=== PATIENT | female | born 1950 | race Caucasian/White ===

== ENCOUNTER 2019-03-12 16:46 | Inpatient (IN) | payer MEDICARE, OTHER, SELFPAY ==
[2019-03-12 17:06] VITALS: BP 99/57; PULSE 85; RESP 10; TEMP 36.9; O2SAT 99
[2019-03-12 18:21] LABS: Abs Immature Grans 0.01 k/cumm (0.0-0.09); Absolute Basophil Count 0.02 k/cumm (0.0-0.2); Absolute Eosinophil Count 0.03 k/cumm (0.0-0.7); Absolute Lymphocyte Count 1.25 k/cumm (1.2-3.4); Absolute Monocyte Count 0.49 k/cumm (0.11-0.7); Absolute Neutrophil Count 3.14 k/cumm (1.2-6.7); Basophils % 0.4; Eosinophils % 0.6; HCT 39.1 % (36.0-46.0); HGB 13.1 g/dL (12.0-15.5); Immature Grans % 0.2; Lymphocytes % 25.3; Mean Corp. HGB Concentration 33.5 g/dL (32.0-36.0); Mean Corpuscular Hemoglobin 31.3 pg (27.0-33.0); Mean Corpuscular Volume 93.5 fL (80-95); Mean Platelet Volume 11.6 fL (8.0-11.0); Monocytes % 9.9; Neutrophils % 63.6; Platelet Count 153 x1000/uL (130-400); RBC 4.18 m/cumm (4.00-5.20); RBC Distribution Width 12.8 % (11.7-14.6); White Blood Cell Count 4.94 k/cumm (4.4-10.8)
[2019-03-12] MEDS: Normal Saline Flush 10 ML SYR IVP (18:21)
[2019-03-12] MEDS: Normal Saline 1,000 ML 125 ML IV (18:22)
[2019-03-12 18:43] LABS: ALT 29 U/L (12-78); AST 14 U/L (15-37); Alkaline Phosphatase 76 U/L (46-116); Anion Gap 5.8 mmol/L (3-11); BUN 31 mg/dL (7-18); Bilirubin, Total 0.5 mg/dL (0.2-1.0); CO2 30.2 mmol/L (21.0-32.0); CREATININE 0.83 mg/dL (0.55-1.02); Calcium 9.6 mg/dL (8.5-10.1); Chloride 103 mmol/L (98-107); Glucose 98 mg/dL (70-100); Magnesium 2.3 mg/dL (1.8-2.4); Potassium 4.2 mmol/L (3.5-5.1); Sodium 139 mmol/L (136-145); Total Protein 7.2 g/dL (6.4-8.2)
--- NOTE | 2019-03-12 19:01 | ED.GENADUL_ITS ---
Discharge Plan Discharge Details Chief Complaint: GenMedical Clinical Impression: Adult failure to thrive, Generalized weakness Primary Care Provider: Vy Dorado ED Provider: Edy Christie Home Meds and New Rx's Prescriptions: No Action calcium carb and citrate-vitD3 1 EACH tablet extended release 2 ea PO DAILY RF: 0 sertraline 50 MG tablet 50 mg PO DAILY Qty: 90 RF: 3 bupropion HCl 300 MG tablet extended release 24 hr 300 mg PO DAILY Qty: 90 RF: 3 Medical Decision Making 68-year-old female here with generalized weakness progressive over the past 2 years and worse over the past couple weeks. Unable to care for herself at home. Patient has been diagnosed and being treated for chronic Lyme disease by a Lyme disease specialist. She is being treated with Plaquenil and nystatin for this. Patient has not been referred to neurology for neurologic evaluation. I am concerned that she may have a neurodegenerative condition, possibly Parkinson's disease. Patient would benefit from an evaluation by neurology. Patient is failing to thrive with significant weight loss. She is unable to ambulate or care for herself at home. Patient will need to be admitted and likely transition to rehab facility. IVF initiated. Screening ECG was reviewed and interpreted by me: Sinus rhythm 80 bpm, subtle ME depression noted inferior. Labs reviewed and nondiagnostic. 19:18 -- I spoke with Dr. Jensen who will admit. Care transitioned to Dr. Jensen who will admit - he requests bridging orders be placed to the floor. HPI General Mode of arrival: ambulatory . Date/Time Provider Initiated Documentation: 03/12/19 17:54 . Limitations to Documentation: no limitations . Information obtained by: patient . HPI Narrative: 68-year-old female with history of depression, Parkinson-like syndrome, being treated for chronic Lyme disease with nystatin and Plaquenil, here with failure to thrive. Patient was brought here by EMS because she is unable to ambulate. Friends are here with her. Patient and friends note that she has had increased generalized weakness over the past 1 year. Symptoms are much worse over the past 2 weeks. Symptoms are progressive. No modifiers. Friends have been providing food and helping her around the house. She now notes that she is unable to ambulate. She is been crawling around the house at times. Patient denies chest pain or abdominal pain. She has no headache. She does note chronic tremor. She has no focal weakness or numbness. Patient has had unintentional weight loss over the past months. Also of note, the patient has had recent hallucinations. Specifically today she thought she saw Katharina domínguez in her house. She understands that this is not possible and that it was a hallucination. She also been hearing voices at times that she believes are not actually there. Related Data Home Medications Medication Instructions Recorded Confirmed calcium carb and citrate-vitD3 2 ea PO DAILY 11/18/16 12/31/16 bupropion HCl 300 mg PO DAILY #90 tab-cap 02/03/18 sertraline 50 mg PO DAILY #90 tab-cap 02/03/18 Previous Rx's Medication Instructions Recorded bupropion HCl 300 mg PO DAILY #90 tab-cap 02/03/18 sertraline 50 mg PO DAILY #90 tab-cap 02/03/18 Allergies Allergy/AdvReac Type Severity Reaction Status Date / Time Penicillins Allergy Unknown Unverified 02/03/18 14:34 General Stated Complaint: GenMedical LUIS: 4 Review of Systems Constitutional Reports as per HPI and Denies fever(s) Cardiovascular Denies chest pain and Denies dyspnea Respiratory Denies dyspnea PFSH Medical History Depression Gallstones Osteopenia Surgical History Cervical Conization/LEEP Colonoscopy - IV Sedation EGD - MAC (12/31/16) L wrist tendon repair Tonsillectomy and adenoidectomy wrist ORIF left Family History Mother Dementia Father No problems noted. Social History Smoking/Tobacco Use Status: Former Tobacco Use Drug use: Never Do you feel safe at home: Yes Exam Const General: cooperative and no acute distress HENMT Head: normocephalic and atraumatic Eyes Conjunctivae: normal conjunctivae Sclera: normal sclerae EOM: EOM intact bilaterally Neck Neck: trachea midline and supple Resp Auscultation: clear to auscultation bilaterally, no rales, no rhonchi and no wheezes Cardio Jugular venous pressure: no JVD Rate: regular rate and not tachycardic Rhythm: regular rhythm GI Palpation: soft, not firm, no guarding, no masses, not rigid and nontender Skin General skin exam: no rashes or lesions noted Neuro General: alert, awake, oriented x3 and moves all extremities Cognition: normal cognition Speech: speech normal Motor: other (Strength is 3 to 4/5 throughout) Sensory Exam: no sensory deficits noted Other: Flat facies, baseline tremor bilateral upper extremities Extrem General: no edema Psych Affect: blunted Thought Process: normal Thought Content: normal Insight: insight good Judgment: judgment good Course Vital Signs Temperature 36.9 C 03/12/19 17:06 Pulse 85 03/12/19 17:06 Respiratory Rate 10 L 03/12/19 17:06 Blood Pressure 99/57 L 03/12/19 17:06 Pulse Oximetry 99 03/12/19 17:06 Temperature 36.9 C 03/12/19 17:06 Temperature Source Temporal Artery Scan 03/12/19 17:06 Pulse 85 03/12/19 17:06 Respiratory Rate 10 L 03/12/19 17:06 Blood Pressure 99/57 L 03/12/19 17:06 Blood Pressure Position Sitting 03/12/19 17:06 Pulse Oximetry 99 03/12/19 17:06 Oxygen Delivery Method Room Air 03/12/19 17:06 Oxygen Flow Rate 0 03/12/19 17:06 Pain Level 0 03/12/19 17:06 Lab/Test Results Lab/Test Results: Laboratory Tests Range/Units 03/12/19 18:11 WBC (4.4-10.8) k/cumm 4.94 RBC (4.00-5.20) m/cumm 4.18 Hgb (12.0-15.5) g/dL 13.1 Hct (36.0-46.0) % 39.1 MCV (80-95) fL 93.5 MCH (27.0-33.0) pg 31.3 MCHC (32.0-36.0) g/dL 33.5 RDW (11.7-14.6) % 12.8 Plt Count (130-400) x1000/uL 153 MPV (8.0-11.0) fL 11.6 H Immature Gran % 0.2 Neutrophils % 63.6 Lymphocytes % 25.3 Monocytes % 9.9 Eosinophils % 0.6 Basophils % 0.4 Absolute Neutrophils (1.2-6.7) k/cumm 3.14 Absolute Lymphocytes (1.2-3.4) k/cumm 1.25 Absolute Monocytes (0.11-0.7) k/cumm 0.49 Absolute Eosinophils (0.0-0.7) k/cumm 0.03 Absolute Basophils (0.0-0.2) k/cumm 0.02
[2019-03-12 19:10] LABS: Troponin I < 0.05 ng/mL (0.00-0.06)
[2019-03-12 19:53] VITALS: BP 92/48; RESP 18; O2SAT 98
[2019-03-12 20:15] VITALS: BP 101/61; PULSE 75; RESP 16; TEMP 37; O2SAT 98
--- NOTE | 2019-03-12 21:53 | W.PM.HP.N ---
Date of service: 03/12/19 Time of Service: 21:54 Assessment and Plan (1) Parkinsonism: Current visit: Yes Status: Suspected will check other metabolic causes, i.e. thyroid, b12; will consult w/ neurology; consider occult malignancy in light of her weight loss; consider MRI of brain; I am skeptical of her diagnosis of Lyme's disease and would like to see her workup for Lyme's. (2) Decreased activities of daily living (ADL): Current visit: Yes Status: Acute patient apparently can no longer care for herself at home. I will consult P.T. and O.T. as well as nutritional consult to look at her weight loss and nutritional needs. (3) Depression: Current visit: No Status: None consider adjustment of her antidepressants. Qualifiers: Depression Type: major depressive disorder Major depression recurrence: recurrent Active/Remission status: currently active Major depression episode severity: moderate Qualified Code(s): F33.1 - Major depressive disorder, recurrent, moderate History of Present Illness Chief Complaint: progressive weakness, unable to care for self Narrative: 68-year-old female who lives alone has had a progressive decline in her ability to care for herself over the last several months. Patient had been diagnosed with chronic Lyme disease by Dr. Lex Banda in [facility]. Patient states that her symptoms started with parkinsonism type symptoms including shuffling gait trouble with her balance, weakness in her legs, and tremors. She states she was diagnosed in July 2018 after some blood tests and a physical exam and was started on clarithromycin and Plaquenil. She states since then she is gotten progressively worse and her symptoms with generalized weakness and trouble ambulating. She particularly has trouble with shuffling gait and has trouble backing up without losing her balance or when she tries to turn in circles she loses her balance. She is also had progressive weight loss. She formerly weighed 170 pounds last year and is now down to 100 pounds. Within the last month she is lost about 30 pounds. This in spite of the fact she claims to have a good appetite. She is no longer able to cook for herself or to do her own bathing and requires market amount of assistance from friends and neighbors. During her work-up of her symptoms she never sought the advice of a neurologist nor was her Lyme disease confirmed by any infectious disease specialist. She states she has not seen her primary care provider Dr. Vy Dorado for about a year now. Work-up in the emergency room included a CBC that was within normal limits. CMP was also essentially normal other than a mild elevation in her BUN of 31 with a normal creatinine of 0.83. Troponin and LFTs were normal. Her total protein was normal at 7.2 and albumin was normal at 4.0. No imaging studies were performed. EKG showed normal sinus rhythm at a rate of 80 bpm with nonspecific T wave abnormality in aVL and V2. Patient is admitted for further evaluation of her progressive weakness and tremors and inability to care for herself. Review of Systems Constitutional Reports fatigue, Reports lethargy, Reports weakness and Reports weight loss Eyes Reports system reviewed and no additional complaints, except [facility] E[facility] Reports system reviewed and no additional complaints, except as [facility] Cardiovascular Reports system reviewed and no additional complaints, except as [facility] Respiratory Reports system reviewed and no additional complaints, except as [facility] Gastrointestinal Reports system reviewed and no additional complaints, except as [facility] Genitourinary Reports urinary frequency and Reports urinary incontinence Musculoskeletal Reports muscle weakness and Reports stiffness (feet and legs feel stiff and immoveable) Integumentary/Breasts Reports system reviewed and no additional complaints, except as [facility] Neurologic Reports lack of coordination, Reports tremor(s) and Reports weakness Endocrine Reports fatigue Hematologic/Lymphatic Reports system reviewed and no additional complaints, except as [facility] PFSH Medical History Depression Gallstones Osteopenia Surgical History Cervical Conization/LEEP Colonoscopy - IV Sedation EGD - MAC (12/31/16) L wrist tendon repair Tonsillectomy and adenoidectomy wrist ORIF left Family History Mother Dementia Father No problems noted. Social History Smoking/Tobacco Use Status: Former Tobacco Use Drug use: Never Do you feel safe at home: Yes Meds Home Medications Medication Instructions Recorded Confirmed Type bupropion HCl 100 mg PO BID 03/12/19 03/12/19 History cholecalciferol (vitamin D3) 1,000 unit PO DAILY 03/12/19 03/12/19 History [Vitamin D3] clarithromycin 250 mg PO TID 03/12/19 03/12/19 History hydroxychloroquine 100 mg PO TID 03/12/19 03/12/19 History nystatin 500,000 unit PO QID 03/12/19 03/12/19 History vitamin E 400 unit PO DAILY 03/12/19 03/12/19 History Allergies Allergy/AdvReac Type Severity Reaction Status Date / Time Penicillins Allergy Unknown Unverified 02/03/18 14:34 Exam Const General: cooperative, no acute distress and other (flat affect, masked facies) Nutritional Appearance: cachectic and thin Orientation: alert, awake and oriented x3 HENMT Head: normal to inspection, no palpable skull fracture, normocephalic and atraumatic Ears: hearing grossly normal bilaterally, external ears normal and EAC abnormal excessive cerumen General nose exam: external nose normal, nares normal, no nasal polyps and nasal mucous membranes and turbinates normal Face and sinus: normal facial exam Mouth: oral mucosae normal, lip normal, tongue normal, oropharynx normal and moist mucous membranes Eyes General: appearance normal, both eyes and all related structures Visual Prieto: normal visual prieto by confrontation Alignment and Position: alignment normal Periorbital: periorbital findings normal Eyelids: eyelids normal Conjunctivae: conjunctivae normal Sclera: sclerae normal Cornea: corneas normal Pupils: PERRL, normal by confrontation and accommodation normal EOM: EOM intact bilaterally Direct ophthalmoscopy: normal light reflex Neck Neck: normal visual inspection, full ROM, no lymphadenopathy, no meningeal signs, trachea midline, supple and no JVD Thyroid: thyroid normal Carotids: normal carotid upstroke Resp Effort & Inspection: normal respiratory effort and able to speak in complete sentences Auscultation: clear to auscultation bilaterally Cardio Jugular venous pressure: no JVD Palpation: normal PMI Rate: regular rate Rhythm: regular rhythm Heart Sounds: S1 normal, S2 normal and normal, physiologic split S2 Pulses: normal peripheral pulses GI Inspection: normal to inspection Palpation: soft and no hepatosplenomegaly Percussion: normal to percussion Auscultation: normal bowel sounds General: No CVA tenderness Skin General skin exam: no rashes or lesions noted Neuro General: alert, awake, oriented x3, moves all extremities and no meningeal signs Cranial Nerves: PERRL, accommodation normal, EOM intact bilaterally, no nystagmus, facial strength normal, tongue midline, gag reflex normal, hearing normal and able to elevate shoulders bilaterally Cognition: normal cognition Speech: speech normal Motor: muscle tone normal throughout, tremor (bilateral hand tremors that are worse w/ activity), no pronator drift noted and strength abnormal (normal strenght in both upper extremities; decr in both legs w/ hips & Knee) Sensory Exam: no sensory deficits noted DTR's: Rt Patellar: 2+, Lt Patellar: 2+, Rt Ankle: 2+ and Lt Ankle: 2+ Plantar Reflexes: Equivocal: bilateral Coordination: [id number] test abnormal (no past pointing but very slow and deliberate w/ tremors) Extrem General: normal to inspection, full ROM, normal capillary refill, no joint enlargement and no clubbing, cyanosis or edema Psych Appearance: well kempt Mental Status: mental status grossly normal Speech and Movement: speech clear and slowed movement Mood: congruent mood Affect: blunted Attitude: cooperative Thought Process: normal Thought Content: normal Insight: fair Results Labs : 03/12/19 18:11 03/12/19 18:11 Laboratory Results - last 24 hr 03/12/19 03/12/19 18:11 18:11 WBC 4.94 RBC 4.18 Hgb 13.1 Hct 39.1 MCV 93.5 MCH 31.3 MCHC 33.5 RDW 12.8 Plt Count 153 MPV 11.6 H Immature Gran % 0.2 Neutrophils % 63.6 Lymphocytes % 25.3 Monocytes % 9.9 Eosinophils % 0.6 Basophils % 0.4 Absolute Neutrophils 3.14 Absolute Lymphocytes 1.25 Absolute Monocytes 0.49 Absolute Eosinophils 0.03 Absolute Basophils 0.02 Sodium 139 Potassium 4.2 Chloride 103 Carbon Dioxide 30.2 Anion Gap 5.8 BUN 31 H Creatinine 0.83 Estimated GFR/1.73 m2 >= 60.00 Glucose 98 Calcium 9.6 Magnesium 2.3 Total Bilirubin 0.5 AST 14 L ALT 29 Alkaline Phosphatase 76 Troponin I < 0.05 Total Protein 7.2 Albumin 4.0 Last Vital Signs Temp 36.9 C 03/12/19 17:06 Pulse 85 03/12/19 17:06 Resp 18 03/12/19 19:53 BP 92/48 L 03/12/19 19:53 Pulse Ox 98 03/12/19 19:53
[2019-03-13] MEDS: Melatonin 3 MG TAB 9 MG PO ×2 (02:03→21:43)
[2019-03-13] MEDS: Normal Saline 1,000 ML 125 ML IV ×2 (02:04→12:01)
[2019-03-13 03:20] VITALS: BP 128/74; PULSE 72; RESP 16; TEMP 36.4; O2SAT 98
[2019-03-13 07:35] VITALS: BP 129/73; PULSE 69; RESP 18; TEMP 36.5; O2SAT 100
[2019-03-13 08:42] LABS: TSH (W/Ref FT4) 1.62 uIU/mL (0.358-3.74); Vitamin B12 452 pg/mL (193-986)
[2019-03-13] MEDS: Breeza Beverage 473 ML BTL PO ×2 (09:20→09:21)
[2019-03-13] MEDS: Omnipaque 350 MG/ML 50 ML BTL IJ (09:22)
[2019-03-13 09:54] LABS: Folate > 20.0 ng/mL (8.6-20.0)
--- NOTE | 2019-03-13 09:54 | DI.CT_ITS ---
SYMPTOM/DIAGNOSIS: SIGNIFICANT WEIGHT LOSS CT CHEST, ABDOMEN AND PELVIS: CT scan of the chest, abdomen and pelvis was performed following the uneventful administration of intravenous and oral contrast material. Comparison examination is 10/03/16 CT ABDOMEN AND PELVIS: The liver is normal in size. No suspicious hepatic mass is seen. The portal, superior mesenteric and splenic veins are patent. There are stones seen within the gallbladder. The largest measures 1.7 cm. There is hyperemia of the gallbladder wall with mild thickening. Pericholecystic fluid is present. There is no biliary ductal dilatation. The pancreas and peripancreatic soft tissues are unremarkable. The spleen is unremarkable. The adrenal glands are unremarkable. The kidneys show normal and symmetric enhancement. No evidence of a solid renal mass is present. There is a nonobstructing 0.6 cm stone in the mid pole of the right kidney. The urinary bladder is unremarkable. The reproductive organs are unremarkable as visualized. There is atherosclerosis of the abdominal aorta but no aneurysmal dilatation present. No significant abdominal or pelvic adenopathy, ascities or pneumoperitoneum is seen. There is stool seen throughout the colon suggesting constipation. No evidence of bowel obstruction or bowel inflammatory infectious process is appreciated. No findings are present in the right lower quadrant to suggest an acute appendicitis. There are degenerative changes seen in the spine. No aggressive osseous lesions are appreciated. IMPRESSION: 1. Cholelithiasis with pericholecystic fluid , gallbladder wall thickening. The findings raise the question of acute cholecystitis. Sonographic correlation may be considered. 2. No evidence of an abdominal mass or metastatic disease CT CHEST: The visualized thyroid gland is unremarkable. The thoracic aorta is of normal caliber. Heart size is within normal limits. No significant pericardial effusion is seen. The central pulmonary arteries are unremarkable. No effusion or pneumothorax is identified. No significant thoracic adenopathy is seen. No infiltrates are present in the lungs. The tracheobronchial tree is unremarkable. Degenerative changes are seen in the spine. IMPRESSION: No acute pulmonary process.
--- NOTE | 2019-03-13 10:20 | DI.VRAD_ITS ---
EXAM: CT Chest With Contrast EXAM DATE/TIME: 03/13/2019 7:42 AM CLINICAL HISTORY: 68 years old, female; Other: Wt loss, failure to thrive; Patient HX: Wt loss, . R/O occult malignancy TECHNIQUE: Imaging protocol: Axial computed tomography images of the chest with intravenous contrast. Coronal and sagittal reformatted images were created and reviewed. Radiation optimization: All CT scans at this facility use at least one of these dose optimization techniques: automated exposure control; mA and/or kV adjustment per patient size (includes targeted exams where dose is matched to clinical indication); or iterative reconstruction. Contrast material: OMNI 350; Contrast volume: 80 ml; Contrast route: IV; COMPARISON: CR CHEST 2 VIEWS PA,LAT 10/03/2016 7:56 AM FINDINGS: Lungs: Unremarkable. No consolidation. No masses. Pleural space: Unremarkable. No pneumothorax. No pleural effusion. Heart: Unremarkable. No cardiomegaly. No pericardial effusion. Aorta: Unremarkable. No aortic aneurysm. Lymph nodes: Unremarkable. No enlarged lymph nodes. Bones/joints: Unremarkable. No acute fracture. Soft tissues: Unremarkable. IMPRESSION: No acute findings. EXAM: CT Abdomen and Pelvis With Contrast EXAM DATE/TIME: 03/13/2019 7:42 AM CLINICAL HISTORY: 68 years old, female; Other: Wt loss, failure to thrive; Patient HX: Wt loss, . R/O occult malignancy TECHNIQUE: Imaging protocol: Axial computed tomography images of the abdomen and pelvis with intravenous contrast. Coronal and sagittal reformatted images were created and reviewed. Radiation optimization: All CT scans at this facility use at least one of these dose optimization techniques: automated exposure control; mA and/or kV adjustment per patient size (includes targeted exams where dose is matched to clinical indication); or iterative reconstruction. Contrast material: OMNI 350; Contrast volume: 80 ml; Contrast route: IV; COMPARISON: CR CHEST 2 VIEWS PA,LAT 10/03/2016 7:56 AM FINDINGS: Liver: Normal. No mass. Gallbladder and bile ducts: Gallstone in the gallbladder. Pericholecystic fluid. Gallbladder wall thickness. Findings may reflect acute cholecystitis. Pancreas: Normal. No ductal dilation. Spleen: Normal. No splenomegaly. Adrenals: Normal. No mass. Kidneys and ureters: Nonobstructing right renal calculus Stomach and bowel: Constipation throughout the colon Appendix: No evidence of appendicitis. Intraperitoneal space: Normal. No free air. No significant fluid collection. Vasculature: Normal. No abdominal aortic aneurysm. Lymph nodes: Normal. No enlarged lymph nodes. Bladder: Unremarkable as visualized. Reproductive: Unremarkable as visualized. Bones/joints: No acute fracture. No dislocation. Soft tissues: Unremarkable. IMPRESSION: Gallstone in the gallbladder. Pericholecystic fluid. Gallbladder wall thickness. Findings may reflect acute cholecystitis. THIS REPORT CONTAINS FINDINGS THAT MAY BE CRITICAL TO PATIENT CARE. The findings were verbally communicated via telephone conference with Shanna French NP at 10:19 AM EDT on 03/13/2019. The findings were acknowledged and understood. Dictated and Authenticated by: Rodrigo Harper MD. Ordering:LUKE Romero MD
[2019-03-13] MEDS: Omnipaque 350 MG/ML 100 ML BTL IJ (10:36)
[2019-03-13] MEDS: Hydroxychloroquine 200 MG TAB 100 MG PO ×3 (10:53→20:16)
[2019-03-13] MEDS: Clarithromycin 500 MG TAB 250 MG PO ×3 (10:53→20:15)
[2019-03-13] MEDS: Cholecalciferol (Vitamin D3) 1,000 UNIT TAB 1000 UNITS PO (10:54)
[2019-03-13] MEDS: Vitamin E 400 UNITS CAP PO (10:54)
[2019-03-13] MEDS: buPROPion 100 MG TAB PO ×2 (10:54→20:16)
[2019-03-13] MEDS: Nystatin 500000 UNITS/5 ML SUSP 5ML CUP PO ×3 (10:54→20:17)
--- NOTE | 2019-03-13 11:21 | IN_ITS ---
Date of service: 03/13/19 Time of Service: 10:00 PT Notes Inpatient Physical Therapy Evaluation Date: 03/13/19 Referring Doctor: Isra Jensen MD PT Orders: PT CONSULT: Evaluate and Treat for decreased ADL performance Precautions: Fall, standard Patient Profile/Admitting Diagnosis: Orders received for this 68 year old female who has had an unfortunate last year. She was about 170 pounds but yet very active and caring for herself with out any compromise. Over the course of this year she has lost over 70pounds and has gotten progressively weaker. She is to the point now where she has been unable to care for herself including making food for the last few weeks. She states she is now unstable with even basic activities such as getting out of bed, dressing, and bathing. 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 Is very active in the [facility] historically Equipment Owned/DME: Nothing Subjective: Patient states she can not recall anything that could have caused this sudden decline in her function. Objective: Patient is sitting up in chair, pleasant but requests to use the commode Mental Status: Alert well oriented to person, place and time. Pain: 0/10 ROM: Right Upper Extremity: WFL Left Upper Extremity: WFL Right Lower Extremity: WFL Left Lower Extremity: WFL Strength: Right Upper Extremity: Globally 4+/5 Left Upper Extremity: Globally 4+/5 Right Lower Extremity: Hip flexion 4/5, quads 4+/5, HS 4/5, DF 4/5, PF 4/5 Left Lower Extremity: Hip flexion 4/5, quads 4+/5, HS 4/5, DF 4/5, PF 4/5 Stand [facility] with 2WW Sit-stand: min A with 2WW Stand-sit: min A with 2WW Gait: Patient was able to demonstrate up to 10 feet for ambulation with Min A and 2WW Balance: Static Sitting: Good Dynamic Sitting: Good Static Standing: Fair Dynamic Standing: Poor Special Tests: Mobility Limitations Standardized Measure [facility] AM-PAC 6 clicks Basic Mobility Inpatient Short Form: Raw Score: 15 Standardized Score: 39.45 CMS Score: 57.7% Informed Consent/Education: Patient instructed in purpose of PT consult and plan of care. ASSESSMENT: Patient is a 68 year old female with hx of good physical health Admitted with progressive weakness and loss of ADLs Patient presents with the following impairment level findings: strength deficits globally, assistance of min needed for ambulation and transfers, ambulation intolerance Pt will benefit from skilled therapy intervention in order to remedy their functional limitations and restore patient to a more appropriate and stable functional level. Impairments are contributing to the following functional limitations: [facility] s core 57.7% Patient is assessed as a mod A [id number] based on the following: History: see above Examination: see above Presentation: evolving Decision Making: moderate based on [facility] of 57.7% Goals: Goals X1 week 1. Supine-Sit CGA 2. Sit-Supine CGA 3. Sit-Stand CGA 4. Stand-Sit CGA 5. Bed-Chair CGA 6. Gait up to 200 feet with least restrictive assistive device and CGA 7: Independent in Home program Plan of Care/Treatment Plan: 1-2x/day, 7 days/week x 1 week. Plan of care has been reviewed with the [employer] providing the service under Physical Therapy direction. Initiate Physical Therapy intervention for strengthening, bed mobility, transfers, gait, stairs, balance training, use of assistive device. DISCHARGE RECOMMENDATIONS: Unless significant improvement beyond current baseline patient may require placement. She has previously lived alone but this current state is not condusive for independent living without significant direct care supervisor support. TREATMENT CODE/TIME: Moderate complexity initial evaluation [id number] 10:00am 25 nadeen [facility]
[2019-03-13 11:40] LABS: Anion Gap 8.7 mmol/L (3-11); BUN 19 mg/dL (7-18); CO2 24.3 mmol/L (21.0-32.0); CREATININE 0.63 mg/dL (0.55-1.02); Calcium 9.2 mg/dL (8.5-10.1); Chloride 106 mmol/L (98-107); Glucose 96 mg/dL (70-100); Potassium 4.3 mmol/L (3.5-5.1); Sodium 139 mmol/L (136-145)
--- NOTE | 2019-03-13 12:15 | DI.US_ITS ---
SYMPTOMS/DIAGNOSIS: GALLSTONES, 70-POUND WEIGHT LOSS, CHRONIC LYME DISEASE, FAILURE TO THRIVE, ? ACUTE CHOLECYSTITIS ABDOMINAL ULTRASOUND: Routine examination was performed. The liver measures 13.5 cm in length. No mass is seen sonographically. There are multiple stones seen within the gallbladder, the largest measures 4.7 x 2.6 x 2.7 cm and is immobile. There is gallbladder wall thickening up to 6 mm. There is mild pericholecystic fluid. The common duct is within normal limits in size. The visualized pancreas and spleen are unremarkable. The aorta and IVC are unremarkable. There is antegrade flow in the portal vein. The kidneys are unremarkable save for a 2 mm echogenic focus in the superior pole of the right kidney, which may represent a stone. There is mild dilatation of the collecting system, which may represent mild hydronephrosis. IMPRESSION: 1. Findings in the gallbladder including a 4.7 cm immobile stone. The findings are suggestive of acute cholecystitis. 2. Findings of possible right hydronephrosis.
[2019-03-13 12:45] VITALS: BP 92/58; PULSE 89; RESP 16; TEMP 37.2; O2SAT 97
--- NOTE | 2019-03-13 14:14 | W.PM.PROGNOT ---
Date of Service Date of service: 03/13/19 Time of Service: 14:40 Assessment and Plan (1) Acute cholecystitis: Start date: 03/13/19 Start time: 15:34 Current visit: Yes Status: Acute CT abd ordered and found to have Acute cholecystitis. Abd. U/s obtained revealing multiple gallstones some adherent to the wall, gallbladder wall thickened to 6 mm with mild pericholecystic fluid. Surgery consulted. NPO, currently she is afebrile without luekocytosis. She is hypotensive with 80/56 manual bp HR 96. 500 bolus NS ordered. Will update surgery if her pressure does not increase. (2) Parkinsonism: Start date: 03/13/19 Start time: 15:26 Current visit: Yes Status: Suspected Tsh with in normal range. Folate and B 12. Neurology consulted. (3) Decreased activities of daily living (ADL): Start date: 03/13/19 Start time: 15:38 Current visit: Yes Status: Acute patient apparently can no longer care for herself at home.consult P.T. and O.T. as well as nutritional consult to look at her weight loss and nutritional needs. (4) Depression: Start date: 03/13/19 Start time: 15:39 Current visit: No Status: None consider adjustment of her antidepressants. Qualifiers: Active/Remission status: currently active Depression Type: major depressive disorder Major depression episode severity: moderate Major depression recurrence: recurrent Qualified Code(s): F33.1 - Major depressive disorder, recurrent, moderate (5) Ambulatory dysfunction: Current visit: Yes Status: Acute Possibly in the setting of worsening parkinsons. Gait is becoming more shuffled, and she has become weak. (6) Malnutrition: Start date: 03/13/19 Start time: 15:40 Current visit: Yes Status: Acute weight loss of 70 pounds over the last year. Malnourished, with cachexia. (7) DVT prophylaxis: Start date: 03/13/19 Start time: 15:43 Current visit: Yes Status: Acute lovenox subcu. Subjective Patient reports: other Interval history since last seen: Not feeling any better. CT revealing acute choleycysititis. Abdominal U/S obtained revealing multiple gallstones, some adherent to the wall, gallbladder wall thickened to 6 mm with mild pericholecystic fluid. Surgery consulted. She does have pain with palpation. Denies diversion to food however she does endorse forgetting to eat but states healthy appetite. She did have nausea a couple weeks ago, that appears to have waxed and waned. There has been a 70 lb wt loss over last year with unknown amount over the last month. Ms. Saenz endorses hallucinations starting over the last week; seeing people, she will see them doing activities then she will look and they will be gone. She denies auditory hallucinations. She states over the last couple of weeks she has become increasingly weak and her walking has become worse. She can no longer stand and use the BR by herself. MRI for tomorrow, neurology has been consulted. She denies CP, SOB, n/v/d. Exam Narrative Exam Narrative: Const: pleasant soft spoken, looks Older than stated age femal sitting up in chair. Neck: No lymphedema Resp: Lungs clear to all mccann. Speaking complete sentences. Cardio: RRR, no murmur appreciated GI: pain with palpation to mid epigastric, Skin: No clubbing, edema or cyanosis Neuro: having hallucinations, Extrem: tremulous and weakness to bilateral LE. Objective Objective Clinical Data: Abnormal lab results 03/12/19 03/12/19 03/13/19 Range/Units 18:11 18:11 06:55 MPV 11.6 H (8.0-11.0) fL BUN 31 H (7-18) mg/dL AST 14 L (15-37) U/L Folate > 20.0 H (8.6-20.0) ng/mL 03/13/19 Range/Units 11:08 MPV (8.0-11.0) fL BUN 19 H D (7-18) mg/dL AST (15-37) U/L Folate (8.6-20.0) ng/mL Vital Signs Temperature 37.2 C 03/13/19 12:45 Temperature Source Tympanic 03/13/19 12:45 Pulse 89 03/13/19 12:45 Pulse Rhythm Regular 03/13/19 11:50 Respiratory Rate 16 03/13/19 12:45 Respiratory Effort 03/13/19 11:50 Respiratory Depth Normal 03/13/19 11:50 Respiratory Pattern Normal 03/13/19 11:50 Blood Pressure 92/58 L 03/13/19 12:45 Blood Pressure Position Sitting 03/12/19 17:06 Pulse Oximetry 97 03/13/19 12:45 Oxygen Delivery Method Room Air 03/13/19 12:45 Oxygen Flow Rate 0 03/13/19 12:45 Pain Level 0 03/12/19 17:06 Comment 03/13/19 12:45 Intake & Output 03/12/19 03/13/19 03/13/19 23:59 11:59 23:59 Output Total 400 / 400 Balance -400 / -400 Weight 52.163 kg Output: Urine 400 / 400 Other: Urine Color Yellow Urine Appearance Clear Urine Odor None Voiding Methods Diaper Bedside Commode Incontinent Diaper Incontinent Laboratory Results WBC 4.94 k/cumm (4.4-10.8) 03/12/19 18:11 RBC 4.18 m/cumm (4.00-5.20) 03/12/19 18:11 Hgb 13.1 g/dL (12.0-15.5) 03/12/19 18:11 Hct 39.1 % (36.0-46.0) 03/12/19 18:11 MCV 93.5 fL (80-95) 03/12/19 18:11 MCH 31.3 pg (27.0-33.0) 03/12/19 18:11 MCHC 33.5 g/dL (32.0-36.0) 03/12/19 18:11 RDW 12.8 % (11.7-14.6) 03/12/19 18:11 Plt Count 153 x1000/uL (130-400) 03/12/19 18:11 MPV 11.6 fL (8.0-11.0) H 03/12/19 18:11 Immature Gran % 0.2 03/12/19 18:11 63.6 03/12/19 18:11 25.3 03/12/19 18:11 9.9 03/12/19 18:11 0.6 03/12/19 18:11 0.4 03/12/19 18:11 Absolute Neutrophils 3.14 k/cumm (1.2-6.7) 03/12/19 18:11 Absolute Lymphocytes 1.25 k/cumm (1.2-3.4) 03/12/19 18:11 Absolute Monocytes 0.49 k/cumm (0.11-0.7) 03/12/19 18:11 Absolute Eosinophils 0.03 k/cumm (0.0-0.7) 03/12/19 18:11 Absolute Basophils 0.02 k/cumm (0.0-0.2) 03/12/19 18:11 Sodium 139 mmol/L (136-145) 03/13/19 11:08 Potassium 4.3 mmol/L (3.5-5.1) 03/13/19 11:08 Chloride 106 mmol/L (98-107) 03/13/19 11:08 Carbon Dioxide 24.3 mmol/L (21.0-32.0) 03/13/19 11:08 8.7 mmol/L (3-11) 03/13/19 11:08 BUN 19 mg/dL (7-18) H D 03/13/19 11:08 0.63 mg/dL (0.55-1.02) 03/13/19 11:08 >= 60.00 (mL/min/1.73m2) 03/13/19 11:08 Glucose 96 mg/dL (70-100) 03/13/19 11:08 Calcium 9.2 mg/dL (8.5-10.1) 03/13/19 11:08 Magnesium 2.3 mg/dL (1.8-2.4) 03/12/19 18:11 0.5 mg/dL (0.2-1.0) 03/12/19 18:11 AST 14 U/L (15-37) L 03/12/19 18:11 ALT 29 U/L (12-78) 03/12/19 18:11 76 U/L (46-116) 03/12/19 18:11 < 0.05 ng/mL (0.00-0.06) 03/12/19 18:11 7.2 g/dL (6.4-8.2) 03/12/19 18:11 4.0 g/dL (3.4-5.0) 03/12/19 18:11 Vitamin B12 452 pg/mL (193-986) 03/13/19 06:55 > 20.0 ng/mL (8.6-20.0) H 03/13/19 06:55 TSH 1.62 uIU/mL (0.358-3.74) 03/13/19 06:55
--- NOTE | 2019-03-13 14:28 | DI.VRAD_ITS ---
Addendum created by Rodrigo Harper MD on 03/13/2019 2:35:37 PM EDT THIS REPORT CONTAINS FINDINGS THAT MAY BE CRITICAL TO PATIENT CARE. The findings were verbally communicated via telephone conference with Shanna French at 2:35 PM EDT on 03/13/2019. The findings were acknowledged and understood. Initial report created on 03/13/2019 2:28:31 PM EDT EXAM: US Abdomen Complete EXAM DATE/TIME: 03/13/2019 2:00 PM CLINICAL HISTORY: 68 years old, female; Other: Gallstones, ? acute cholecystitis 70 lb wt loss TECHNIQUE: Imaging protocol: Real-time ultrasound of the abdomen with image documentation. COMPARISON: CT CHEST/ABD/PEL W 03/13/2019 9:42 AM FINDINGS: Liver: 13.5 cm No mass. Gallbladder: Multiple gallstones in the gallbladder. Largest gallstone 4.7 x 2.6 x 2.7 cm. This gallstone is nonmobile. Some of the gallstones adherent to the wall. Gallbladder wall thickened to 6 mm with mild pericholecystic fluid. Common bile duct: Common bile duct 1 mm Pancreas: Visualized pancreas is unremarkable. Right kidney: Possible 2 mm echogenic focus in the superior pole the right kidney. There may be mild hydronephrosis of the right kidney. Right kidney measures 11.1 cm Left kidney: Left kidney measures 9.6 cm. No mass. No hydronephrosis. Spleen: Normal. No splenomegaly. Aorta: Proximal aorta 2.4 cm Inferior vena cava: Normal. Portal venous: Antegrade flow in the portal vein IMPRESSION: Multiple gallstones in the gallbladder. Largest gallstone 4.7 x 2.6 x 2.7 cm. This gallstone is nonmobile. Some of the gallstones adherent to the wall. Gallbladder wall thickened to 6 mm with mild pericholecystic fluid. Findings consistent with acute cholecystitis There may be mild hydronephrosis of right kidney Dictated and Authenticated by: Rodrigo Harper MD. Ordering:NICKI Otero MD
--- NOTE | 2019-03-13 14:28 | PHARADMIT ---
Addendum entered by Ignacia Wooten 03/14/19 16:58: Pharmacy Note Subjective neuro consult ordered, Objective VS-okay Cl-108 Assessment carbidopa/levodopa 10/100 started TID lorazepam given prior to MRI Plan surgery once medically cleared Original Note: Admission Pharmacy Clinical Review failure TO thrive, Generalized weakness ( R/O Parkinsons Code Status Full Code Current Weight Wgt-52.163 kg Renally Cleared and Narrow Therapeutic Index Meds CrCl~ 48.3 mL/min Meds-OK QTc Value / Action Taken QTc-413 NA BP Control, Fever BP-92/58 Tmax- 37.2C Electrolytes reviewed Na-139 K+4.3 Mag-2.3 DVT Prophylaxis Lovenox Opiate Usage / Scheduled Bowel Regimen Ordered No Yes Plt/SCr for Heparin / Enoxaparin Plts-153 SCr-0.63 INR for Warfarin NA H/H stable, WBC/Bands H&H- 13.1/39.1 WBC- 4.94 Antibiotic appropriateness Biaxin, Home med Cultures and Sensitivities NONE Surgical ABX d/c within 24 hr NA DM control / Insulin Dosing BG- 96 Heart Failure (Check EF%) (WOLFGANG's, B-Block, Diuretics) None IV to PO Switch No Home Meds Reviewed Yes Home Meds Not Ordered ORSDERED Comments Neurology consult for Thursday to evaluate for possible Parkinsons disease
[2019-03-13] MEDS: Normal Saline 500 ML IV (15:44)
[2019-03-13 15:53] VITALS: BP 80/62; PULSE 95; RESP 17; TEMP 37; O2SAT 100
[2019-03-13 15:57] VITALS: BP 115/60; PULSE 80
[2019-03-13] MEDS: Normal Saline 1,000 ML 150 ML IV ×2 (17:30→23:48)
--- NOTE | 2019-03-13 18:09 | PDOC.CMIN ---
Care Management Initial Assess REASON FOR HOSPITALIZATION:: Failure to Thrive, Generalized weakness PAST MEDICAL HISTORY/PAST SURGICAL HISTORY:: Medical: Depression, Gallstones, Osteopenia. Surgical: Cervical Conization/LEEP, Colonoscopy - IV Sedation, EGD - MAC (12/31/16), L wrist tendon repair, Tonsillectomy and adenoidectomy. wrist ORIF left PREVIOUS FUNCTIONAL STATUS/SOCIAL/FAMILY SUPPORTS:: Has been living in a home with room mates and a group of friends who have been assisting her with her care needs. She has been getting weaker and has lost 20-30 pounds ove the past few months and friends are not able to meet her increased need for assistance. CURRENT FUNCTIONAL STATUS:: Sitting up in her recliner. Flat affect but does respond to questions. Good friend, Diamond Gerardo, is in visiting and shared information as well. Requires assistance for ambulation and transfers today. ADVANCE DIRECTIVES:: None on file Has patient been provided with information about the portal?: No Did the patient sign up for the portal?: No CODE STATUS:: Full Code INSURANCE COVERAGE / FINANCIAL ISSUES:: Medicare. Self Pay CURRENT HOME/COMMUNITY SERVICES/EQUIPMENT:: None at this time PRIMARY CARE PHYSICIAN:: Vy Dorado MD POTENTIAL DISCHARGE NEEDS:: Services, Short term SNF placement PATIENT/FAMILY EDUCATION NEEDS:: Self Management, Limitations, Resource options ANTICIPATED BARRIERS TO DISCHARGE:: Although she does not live alone, friends and roommates cannot meet her care needs at this time so she may not be able to returnhome right away. TRANSPORTATION:: Friends PLAN:: Leslie may need short term SNF placement for srengthening and improved mobility prior to returning to independent living at home.
[2019-03-13 20:39] LABS: Bilirubin Negative (Negative); Blood Trace-intact (Negative); Clarity Clear (Clear); Glucose Negative (Negative); Ketones Negative (Negative); Leukocyte Esterase Negative (Negative); Nitrite Negative (Negative); Specific Gravity 1.015 (1.005-1.025); Urobilinogen 0.2 EU/dL (Up TO 0.2); pH 5.5 (5-8)
[2019-03-13 20:46] LABS: Epithelial Cells Rare HPF (Negative); Other Cells Negative (Negative); RBC 0-2 (0-2); WBC Negative HPF (0-5)
[2019-03-13 20:47] LABS: Bacteria Rare HPF (Negative); C & S Indicated? No; Casts Negative LPF (Negative); Crystals Negative HPF (Negative); Mucus Negative (Negative)
[2019-03-14 00:07] VITALS: BP 110/64; PULSE 75; RESP 16; TEMP 36.1; O2SAT 99
[2019-03-14 03:53] VITALS: BP 112/70; PULSE 73; RESP 16; TEMP 35.7; O2SAT 94
[2019-03-14] MEDS: Normal Saline 1,000 ML 150 ML IV ×3 (06:06→23:10)
--- NOTE | 2019-03-14 07:09 | W.SURGCON ---
Date of service: 03/14/19 Time of Service: 07:09 Assessment and Plan (1) Parkinsonism: Current visit: Yes Status: Suspected 68 y/o female with progressively worsening neurologic symptoms. Undergoing workup and neurology consult pending. (2) Acute cholecystitis: Current visit: Yes Status: Acute 68 y/o female with known cholelithiasis. Findings on CT abd/pelvis and abdominal ultrasound on this admission consistent with acute cholecystitis. Cliinically, her abdomen is benign. She is asymptomatic at this time. LFTs and WBC have not been elevated on this admission. She is afebrile. She has been tolerating a regular diet. Await repeat labs this am. Lipase ordered. She may resume a regular diet while awaiting neurologic workup. Consider cholecystectomy when cleared from a medical standpoint for surgery. No urgent indication for surgery as she does not appear to be septic or even symptomatic at this time. Will follow-up. History of Present Illness Chief Complaint: Weakness Narrative: 68 y/o female admitted through the ED at [facility] for progressive weakness. She was diagnosed with chronic Lyme disease about 2 years ago. She notes symptoms including tremors, shuffling gait, and progressive loss of motor skills, including difficulty turning around in a three affiliated. Over the past several weeks, she has noted further decline to the point where she was unable to take care of herself. She notes that she was unable to cook her own meals or clean herself. Over the past year, she has lost 70 pounds despite reporting a good appetite. She denies any nausea, vomiting, or abdominal pain recently. She denies diarrhea or constipation. Bowel movements are usually every other day. She notes that she had some nausea about 1 year ago which has since resolved. She had an EGD in 12/2016 which noted moderate gastritis and a gastric polyp. She had a colonoscopy in 08/2013 which was reportedly normal. She notes that she was on a chalky medication for a period of time after her EGD and her nausea symptoms resolved. She denies any fatty food intolerance or h/o RUQ pain. Gallstones were noted on CT as far back as 2016. She had an ultrasound this weekend which showed several large gallstones and some thickening of the wall up to 6 mm with pericholecystic fluid. This was read as acute cholecystitis. No bile duct dilation noted on U/S or CT. LFTs were not elevated. WBC WNL. Patient is scheduled for a brain MRI today and neurology consult to evaluate for suspected Parkinson's disease. Consults Consult date: 03/14/19 Requesting physician: Shanna French Review of Systems Review of Systems All systems reviewed & are unremarkable except as noted in HPI and below Constitutional Reports weakness and Reports weight loss Gastrointestinal Denies abdominal pain, Denies constipation, Denies diarrhea, Reports nausea and Denies vomiting Musculoskeletal Reports abnormal gait Neurologic Reports abnormal gait, Reports tremor(s) and Reports weakness PFSH Medical History Depression Gallstones Osteopenia Surgical History Cervical Conization/LEEP Colonoscopy - IV Sedation EGD - MAC (12/31/16) L wrist tendon repair Tonsillectomy and adenoidectomy wrist ORIF left Family History Mother Dementia Father No problems noted. Social History Smoking/Tobacco Use Status: Former Tobacco Use Drug use: Never Do you feel safe at home: Yes Exam Const General: cooperative, comfortable, no acute distress and frail appearing Nutritional Appearance: cachectic Orientation: alert and oriented x3 HENMT Head: normocephalic and atraumatic Resp Effort & Inspection: normal respiratory effort and able to speak in complete sentences Auscultation: clear to auscultation bilaterally Cardio Jugular venous pressure: no JVD Rate: regular rate Rhythm: regular rhythm GI Inspection: non-distended Palpation: soft, not firm, no guarding, no masses, not rigid and nontender Auscultation: normal bowel sounds Skin General skin exam: no rashes or lesions noted and no jaundice Neuro General: alert and oriented x3 Results Last Vital Signs Temp 35.7 C L 03/14/19 03:53 Pulse 73 03/14/19 03:53 Resp 16 03/14/19 03:53 BP 112/70 03/14/19 03:53 Pulse Ox 94 L 03/14/19 03:53 Labs : 03/12/19 18:11 03/13/19 11:08 Laboratory Results - last 24 hr 03/13/19 03/13/19 03/13/19 06:55 11:08 19:45 Sodium 139 Potassium 4.3 Chloride 106 Carbon Dioxide 24.3 Anion Gap 8.7 BUN 19 H D Creatinine 0.63 Estimated GFR/1.73 m2 >= 60.00 Glucose 96 Calcium 9.2 Vitamin B12 452 Folate > 20.0 H TSH 1.62 Urine Color Yellow Urine Clarity Clear Urine pH 5.5 Ur Specific [place] 1.015 Urine Protein Negative Urine Ketones Negative Urine Blood Trace-intact H Urine Nitrite Negative Urine Bilirubin Negative Urine Urobilinogen 0.2 Ur Leukocyte Esterase Negative Urine RBC 0-2 Urine WBC Negative Ur Epithelial Cells Rare Urine Crystals Negative Urine Bacteria Rare Urine Casts Negative Urine Mucus Negative Urine Other Negative Ur Culture Indicated? No Urine Glucose Negative Imaging CT scan - chest: report reviewed and image reviewed CT scan - pelvis: report reviewed and image reviewed Abdominal ultrasound report/results: report reviewed and image reviewed Imaging Studies: Patient Name: CHRISTIANO WELLER #: [id number]: MS Ordering Provider: : ADM HENRIK Primary Care Provider: Vy Dorado M.D.Date of Exam: 03/13/19Sex: F : 1Age: 68 Exam(s) Addendum created by Rodrigo Harper MD on 03/13/2019 2:35:37 PM EDT THIS REPORT CONTAINS FINDINGS THAT MAY BE CRITICAL TO PATIENT CARE. The findings were verbally communicated via telephone conference with Shanna French at 2:35 PM EDT on 03/13/2019. The findings were acknowledged and understood. Initial report created on 03/13/2019 2:28:31 PM EDT EXAM: US Abdomen Complete EXAM DATE/TIME: 03/13/2019 2:00 PM CLINICAL HISTORY: 68 years old, female; Other: Gallstones, ? acute cholecystitis 70 lb wt loss TECHNIQUE: Imaging protocol: Real-time ultrasound of the abdomen with image documentation. COMPARISON: CT CHEST/ABD/PEL W 03/13/2019 9:42 AM FINDINGS: Liver: 13.5 cm No mass. Gallbladder: Multiple gallstones in the gallbladder. Largest gallstone 4.7 x 2.6 x 2.7 cm. This gallstone is nonmobile. Some of the gallstones adherent to the wall. Gallbladder wall thickened to 6 mm with mild pericholecystic fluid. Common bile duct: Common bile duct 1 mm Pancreas: Visualized pancreas is unremarkable. Right kidney: Possible 2 mm echogenic focus in the superior pole the right kidney. There may be mild hydronephrosis of the right kidney. Right kidney measures 11.1 cm Left kidney: Left kidney measures 9.6 cm. No mass. No hydronephrosis. Spleen: Normal. No splenomegaly. Aorta: Proximal aorta 2.4 cm Inferior vena cava: Normal. Portal venous: Antegrade flow in the portal vein IMPRESSION: Multiple gallstones in the gallbladder. Largest gallstone 4.7 x 2.6 x 2.7 cm. This gallstone is nonmobile. Some of the gallstones adherent to the wall. Gallbladder wall thickened to 6 mm with mild pericholecystic fluid. Findings consistent with acute cholecystitis There may be mild hydronephrosis of right kidney Dictated and Authenticated by: Rodrigo Harper MD. Ordering:NICKI Otero MD Ordered By: CC: Dictated By: Reports vrad 03/13/19 1400 03/13/19 1439 Transcribed By: Reba Cassidy This is privileged, confidential information intended only for the provider named. Any use or distribution by any person other than this provider is strictly prohibited. If you receive this report in error, please notify us immediately at [phone] and return the original report to us at the address above. Thank-you.
[2019-03-14 07:50] LABS: Absolute Basophil Count 0.03 k/cumm (0.0-0.2); Absolute Eosinophil Count 0.04 k/cumm (0.0-0.7); Absolute Lymphocyte Count 1.03 k/cumm (1.2-3.4); Absolute Neutrophil Count 2.62 k/cumm (1.2-6.7); Basophils % 0.7; HCT 38.1 % (36.0-46.0); HGB 12.4 g/dL (12.0-15.5); Lymphocytes % 25.6; Mean Corp. HGB Concentration 32.5 g/dL (32.0-36.0); Mean Corpuscular Hemoglobin 30.6 pg (27.0-33.0); Mean Corpuscular Volume 94.1 fL (80-95); Mean Platelet Volume 11.9 fL (8.0-11.0); Monocytes % 7.5; Neutrophils % 65.2; Platelet Count 139 x1000/uL (130-400); RBC 4.05 m/cumm (4.00-5.20); RBC Distribution Width 12.9 % (11.7-14.6); White Blood Cell Count 4.02 k/cumm (4.4-10.8)
--- NOTE | 2019-03-14 08:00 | DI.RAD_ITS ---
SYMPTOM/DIAGNOSIS: PRE-OP CHEST X-RAY: AP and lateral. Comparison 10/03/16 Heart size and pulmonary vasculature are within normal limits. Lungs ae hyperinflated suggesting underlying COPD. No focal consolidating infiltrates, effusions or pneumothoraces are identified. Age appropriate degenerative changes are seen in the spine. IMPRESSION: No acute pulmonary process.
[2019-03-14 08:14] VITALS: BP 108/70; PULSE 83; RESP 16; TEMP 37.1; O2SAT 100
[2019-03-14 08:14] LABS: ALT 26 U/L (12-78); AST 17 U/L (15-37); Albumin 3.6 g/dL (3.4-5.0); Alkaline Phosphatase 69 U/L (46-116); Anion Gap 7.7 mmol/L (3-11); BUN 16 mg/dL (7-18); Bilirubin, Total 0.6 mg/dL (0.2-1.0); CO2 26.3 mmol/L (21.0-32.0); CREATININE 0.67 mg/dL (0.55-1.02); Calcium 9.2 mg/dL (8.5-10.1); Chloride 108 mmol/L (98-107); Glucose 86 mg/dL (70-100); Magnesium 2.1 mg/dL (1.8-2.4); Potassium 3.8 mmol/L (3.5-5.1); Sodium 142 mmol/L (136-145); Total Protein 6.5 g/dL (6.4-8.2)
[2019-03-14] MEDS: Clarithromycin 500 MG TAB 250 MG PO ×3 (08:21→20:09)
[2019-03-14] MEDS: Hydroxychloroquine 200 MG TAB 100 MG PO ×3 (08:22→20:09)
[2019-03-14] MEDS: buPROPion 100 MG TAB PO ×2 (08:23→20:09)
[2019-03-14] MEDS: Vitamin E 400 UNITS CAP PO (08:23)
[2019-03-14] MEDS: Cholecalciferol (Vitamin D3) 1,000 UNIT TAB 1000 UNITS PO (08:23)
[2019-03-14] MEDS: Nystatin 500000 UNITS/5 ML SUSP 5ML CUP PO ×4 (08:24→20:09)
[2019-03-14 08:27] LABS: Lipase 76 U/L (73-393)
[2019-03-14] MEDS: LORazepam 2 MG/ML VIAL 0.5 MG IVP (09:10)
[2019-03-14] MEDS: Normal Saline Flush 10 ML SYR IVP (09:42)
[2019-03-14] MEDS: Gadoterate meglumine 20 ML VIAL 10 ML IVP (09:43)
--- NOTE | 2019-03-14 10:02 | PDOC.CMPRO ---
Care Management Progress Note S/O: Per review of patient status during Interdisciplinary rounds meeting this morning, reports Leslie will switch to Inpatient from Admission. Dr. Reddy provided surgical consult stating surgical intervention would be appropriate once Leslie is medically cleared. Per MD, reconsideration of timely surgical intervention will be forthcoming. CM met with Maki's primary support person; Diamond Gerardo. Diamond reviewed Leslie's level of functioning over the last year. She noted a steady decline and shared that within the last few weeks Maki has been unable to ambulate and having hallucinations of care takers and animals (not negative visions). Diamond reported a month ago, Leslie was able to toilet herself, heat up her own meals and utilizes MOW. She did not drive or run errands. Leslie, per Diamond has a supportive network of [id number] developed through the [employer]. 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 She also has a sister in [place] who she recently reconnected with, after years of no contact. Diamond text her yesterday to notify of Leslie's status. Diamond reports Leslie was alert and oriented during lunch. She met with Dr. Haines today and per Diamond received an official diagnosis of Parkinson's and began new medications. Leslie has an apartment upstairs from another of her main support persons; Lor. Lor will meet with this literary writer tomorrow to discuss home supports and discharge planning considerations. A: 68 year old female admitted to [facility] 03/13/19 for Failure to thrive, generalized weakness, ?Parkinson's P: Leslie will continue to be closely monitored and evaluated. She will continue to work with PT and OT. Anticipate need for SNF once medically cleared. Anticipate cholecystectomy when appropriate per MD. Undetermined disposition ([facility]). CM will continue to follow.
--- NOTE | 2019-03-14 10:07 | DI.MRI_ITS ---
SYMPTOM/DIAGNOSIS: NEUROLOGIC SYNDROME MRI BRAIN: Pre and post op examinations were performed. FINDINGS: There is patient motion artifact which persists on several images despite repeated attempts. The ventricles and sulci are consistent with the patient's age. There are scattered areas of T2 hyperintensity in the white matter on the T2 and FLAIR images likely reflecting small vessel ischemic disease. The diffusion weighted images show no evidence of restricted diffusion. Susceptibility images show no evidence of intracranial hemorrhage. No acute midline shift or mass effect is identified. The ventricles are intact. The basilar cisterns are patent. There does appear to be a normal flow void in the [place]. The visualized paranasal sinuses are clear. The orbits and retro-orbital soft tissues are unremarkable. Following contrast administration no enhancing lesions are identified. IMPRESSION: 1. Exam limited by significant patient motion artifact. 2. No evidence of an intracranial mass, hemorrhage or infarct. 3. T2 hyperintense signal as described likely reflecting small vessel ischemic disease.
[2019-03-14 10:16] LABS: Prealbumin 19 mg/dL (20-40)
--- NOTE | 2019-03-14 10:29 | OT.INNT ---
Date of service: 03/14/19 Time of Service: 10:29 Occupational Therapy Notes 03/14/19 OT consult received and pt's chart was reviewed. Pt is unable to be seen at this time as she is recovering from medication that was given to her for her MRI this morning. OT will resume OT services tomorrow morning. Teresa Lawson OTR/[facility]
[2019-03-14 11:14] VITALS: BP 112/69; PULSE 80; RESP 18; TEMP 36.9; O2SAT 99
[2019-03-14 11:23] LABS: Calculated LDL 74 mg/dL; Cholesterol 167 mg/dL (50-200); HDL Cholesterol 86 mg/dL (40-60); Triglyceride 37 mg/dL (30-150)
--- NOTE | 2019-03-14 11:30 | PT.INNT ---
Date of service: 03/14/19 Time of Service: 11:30 PT Notes 03/14/2019 Held morning PT session, as patient was medicated with Ativan for MRI testing and is demonstrating that she is not fully alert at this time. Will attempt to resume PT services this afternoon, when patient is fully alert, for safety.
--- NOTE | 2019-03-14 12:45 | NCONE_ITS ---
Time of Service: 12:46 Assessment and Plan (1) Idiopathic Parkinson's disease: Current visit: Yes Status: Acute (2) Decreased activities of daily living (ADL): Current visit: Yes Status: Acute (3) Malnutrition: Current visit: Yes Status: Acute Ms. Saenz is a 68-year-old, right-handed woman who presents with a 2+ year history of progressive shuffling gait with periodic freezing, tremors, gait imbalance, and weight loss with a more recent inability to be cared for at home. Her neurological exam is consistent with Parkinson's disease manifested by hypomimia, hypophonia, mild dysarthria, bilateral cogwheel rigidity, and diffuse bradykinesia in addition to mild generalized weakness. I discussed the diagnosis with her. Parkinson's disease is a clinical diagnosis. We discussed possible Young scan as an outpatient for confirmation testing, but neither of us feel this is necessary at this time. Her extreme weight loss is unusual for PD. Some weight loss can be seen as it likely takes her much longer to chew. She also has apparent abulia and I question the amount of calories she is putting in. The visual hallucinations are a part of PD. She has leg complaints which seem consistent with PLMD but may be part of PD as well. We discussed initiation of Sinemet starting 25/100 mg 3 times daily. I will have her take this at mealtimes to avoid GI side effects for now. ADRs were discussed. This may worsen hallucinations and can cause constipation and orthostatic hypotension. She may need higher doses and I will assess periodically. She should continue physical therapy. I will continue to follow. DISCLAIMER: This note was created using [employer] voice recognition software. History of Present Illness Chief Complaint: Parkinsons Narrative: Handedness: right. HPI: Ms. Saenz is a 68-year-old woman with a past medical history of depres chava and osteopenia. She was on 03/12/2019 with failure to thrive and inability to be cared for at home. She has a 2+ year history of progressive shuffling gait, tremors, generalized weakness, and imbalance. She notes tremors throughout her body including her bilateral arms, legs, and head. In the last 1 week, she has been experiencing visual hallucinations lasting hours at a time. These are generally of animals and are very comforting to her. In the last 1 year, she has had an approximately 70 pound weight loss with a more acute loss in the last 1 month of unknown amount. She notes her handwriting has become illegible and small. She denies any constipation with every other day bowel movements which are soft. She denies any orthostatic hypotension. She has occasional dysphagia with solids which she attributes to half swallows. Her friends have noted mild dysarthria and hypophonia over the last 1 to 2 years. In addition to a shuffling gait, she has noticed slowed movements and occasionally getting stuck while walking. This is most notable in doorways. She has frequent cramps and spasms in her lower legs which cause her legs to twitch. This makes it difficult to sleep at night. She has since undergone an MRI brain with and without contrast which I was able to review. It was unremarkable. She had a normal B12, folate, and TSH. She has no family history of Parkinson's disease. 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 She was diagnosed with Lyme disease induced Parkinson's disease in 2018. She has since been treated with Plaquenil, nystatin, and various antibiotics. She has obviously not had any improvement with these therapies. She otherwise was also found to have asymptomatic acute cholecystitis based on an ultrasound of her abdomen. Consults Requesting physician: Isra Jensen Review of Systems Review of Systems All systems reviewed & are unremarkable except as noted in HPI and below PFSH Medical History Depression Gallstones Osteopenia Surgical History Cervical Conization/LEEP Colonoscopy - IV Sedation EGD - MAC (12/31/16) L wrist tendon repair Tonsillectomy and adenoidectomy wrist ORIF left Family History Mother Dementia Father No problems noted. 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 Do you feel safe at home: Yes Visit Medication and Allergies Active Medications Generic Name Dose Route Start Last Admin Trade Name Freq PRN Reason Stop Dose Admin Acetaminophen 0 mg 03/13/19 10:21 Tylenol PO Q4H PRN PRN Al Hydrox/Mg Hydrox/Simethicone 30 ml 03/13/19 10:21 Mylanta Liquid PO Q2H PRN PRN Bupropion HCl 100 mg 03/13/19 08:30 03/14/19 08:23 Wellbutrin PO 100 mg BID BRONWYN Administration Cholecalciferol 1,000 units 03/13/19 08:30 03/14/19 08:23 Vitamin D PO 1,000 units DAILY BRONWYN Administration Clarithromycin 250 mg 03/13/19 08:30 03/14/19 08:21 Biaxin PO 250 mg TID BRONWYN Administration Dimethicone/Zinc Oxide 0 gm 03/13/19 10:20 Jodee Protect Cream TP PRN PRN Docusate Sodium 100 mg 03/13/19 10:20 Colace PO TID PRN PRN Enoxaparin Sodium 40 mg 03/14/19 12:00 Lovenox SC Q24H BRONWYN Hydroxychloroquine Sulfate 100 mg 03/13/19 08:30 03/14/19 08:22 Plaquenil PO 100 mg TID BRONWYN Administration Sodium Chloride 1,000 mls @ 150 mls/hr 03/13/19 10:30 03/14/19 07:50 Saline 1000ml Bag IV 0 mls/hr INFUSION BRONWYN Infusion IV Miscellaneous Supplies 1 each 03/13/19 10:30 IV DIRECTED BRONWYN Magnesium Hydroxide 30 ml 03/13/19 10:21 Milk Of Magnesia PO DAILY PRN PRN Melatonin 9 mg 03/13/19 01:20 03/13/19 21:43 PO 9 mg HS BRONWYN Administration Nystatin 500,000 units 03/13/19 08:30 03/14/19 08:24 Mycostatin Liquid PO 500,000 units QID BRONWYN Administration Polyethylene Glycol 17 gm 03/13/19 10:21 Miralax PO DAILY PRN PRN Constipation [id number] Acetate 400 units 03/13/19 08:30 03/14/19 08:23 Vitamin E PO 400 units DAILY BRONWYN Administration Allergies Penicillins Allergy (Unknown, Unverified 02/03/18 14:34) Exam Narrative Exam Narrative: Physical Exam: Gen: Patient of apparent stated age, NAD, thin, mild hypomimia Head and face: no facial or cranial abnormalities Neck: Supple, no meningismus, no occipital tenderness CV: + S1, S2, RRR, no murmur Resp: CTA B/L Abd: soft, nontender, nondistended, +BS Ext: No edema. No clubbing or cyanosis. No bony deformity. Neuro Exam: Language: fluency, naming, repetition, and comprehension intact; Mental Status: AAOx3, current events intact, fund of knowledge intact; Speech: mild dysarthria and hypophonia Cranial nerves: Funduscopy: not performed CN II: visual mccann intact CN III, IV, : extraocular movements intact, no nystagmus, pupils symmetric and reactive to light CN V: face sensation intact to LT and PP CN VII: no facial asymmetry noted CN VIII: hearing intact bilaterally CN IX, X: palate rises symmetrically CN XI: trapezius/SCM 5/5 bilaterally CN XII: protrudes tongue symmetrically Sensory: intact to LT, PP, vibration, and joint position in all extremities Motor: bulk intact. Bilateral UE cogwheel rigidity. Diffuse bradykinesia, worse in the legs. Fine motor movements reduced bilaterally. No pronator drift. Strength 4+/5 throughout. Mild bilateral UE postural tremor with dysmetria R>L. +Asterixis. Reflexes: 2+ at the biceps, triceps, brachioradialis, patella, and achilles tendons bilaterally; toes neutral bilaterally; Coordination: FTN with mild UE dysmetria, R>L, bilaterally Gait: deferred Results Last Vital Signs Temp 36.9 C 03/14/19 11:14 Pulse 80 03/14/19 11:14 Resp 18 03/14/19 11:14 BP 112/69 03/14/19 11:14 Pulse Ox 99 03/14/19 11:14 Labs : 03/14/19 06:32 03/14/19 06:32 Laboratory Results - last 24 hr 03/13/19 03/14/19 03/14/19 19:45 06:32 06:32 WBC 4.02 L RBC 4.05 Hgb 12.4 Hct 38.1 MCV 94.1 MCH 30.6 MCHC 32.5 RDW 12.9 Plt Count 139 MPV 11.9 H Immature Gran % 0.0 Neutrophils % 65.2 Lymphocytes % 25.6 Monocytes % 7.5 Eosinophils % 1.0 Basophils % 0.7 Absolute Neutrophils 2.62 Absolute Lymphocytes 1.03 L Absolute Monocytes 0.30 Absolute Eosinophils 0.04 Absolute Basophils 0.03 Sodium 142 Potassium 3.8 Chloride 108 H Carbon Dioxide 26.3 Anion Gap 7.7 BUN 16 Creatinine 0.67 Estimated GFR/1.73 m2 >= 60.00 Glucose 86 Calcium 9.2 Magnesium 2.1 Total Bilirubin 0.6 AST 17 ALT 26 Alkaline Phosphatase 69 Total Protein 6.5 Albumin 3.6 Triglycerides Total Cholesterol LDL Cholesterol, Calc HDL Cholesterol Lipase Urine Color Yellow Urine Clarity Clear Urine pH 5.5 Ur Specific [place] 1.015 Urine Protein Negative Urine Ketones Negative Urine Blood Trace-intact H Urine Nitrite Negative Urine Bilirubin Negative Urine Urobilinogen 0.2 Ur Leukocyte Esterase Negative Urine RBC 0-2 Urine WBC Negative Ur Epithelial Cells Rare Urine Crystals Negative Urine Bacteria Rare Urine Casts Negative Urine Mucus Negative Urine Other Negative Ur Culture Indicated? No Urine Glucose Negative 03/14/19 03/14/19 06:32 06:32 WBC RBC Hgb Hct MCV MCH MCHC RDW Plt Count MPV Immature Gran % Neutrophils % Lymphocytes % Monocytes % Eosinophils % Basophils % Absolute Neutrophils Absolute Lymphocytes Absolute Monocytes Absolute Eosinophils Absolute Basophils Sodium Potassium Chloride Carbon Dioxide Anion Gap BUN Creatinine Estimated GFR/1.73 m2 Glucose Calcium Magnesium Total Bilirubin AST ALT Alkaline Phosphatase Total Protein Albumin Triglycerides 37 Total Cholesterol 167 LDL Cholesterol, Calc 74 HDL Cholesterol 86 H Lipase 76 Urine Color Urine Clarity Urine pH Ur Specific [place] Urine Protein Urine Ketones Urine Blood Urine Nitrite Urine Bilirubin Urine Urobilinogen Ur Leukocyte Esterase Urine RBC Urine WBC Ur Epithelial Cells Urine Crystals Urine Bacteria Urine Casts Urine Mucus Urine Other Ur Culture Indicated? Urine Glucose
[2019-03-14] MEDS: Enoxaparin 40 MG/0.4 ML SYR SC (12:54)
--- NOTE | 2019-03-14 15:28 | CHAPLAIN ---
Leslie was resting in bed when I visited. She had had an MRI this morning and she said she received medication before that made her drowsy. Leslie is Druze and her friend Diamond Gerardo was with her. I let Leslie know that gas appliance installer is available any time. I'll check back with her tomorrow.
--- NOTE | 2019-03-14 15:46 | W.PM.PROGNOT ---
Date of Service Date of service: 03/14/19 Time of Service: 15:46 Assessment and Plan (1) Acute cholecystitis: Start date: 03/14/19 Start time: 15:49 Current visit: Yes Status: Acute At this point surgery has deferred until medical cleared. EKG was normal. Denies pain today, tolerating diet. No signs of sepsis. (2) Parkinsonism: Start date: 03/14/19 Start time: 15:57 Current visit: Yes Status: Suspected Pt was evaluated by Neurology and started on sinimet for Parkinsons. Monitor progression. PT/OT (3) Decreased activities of daily living (ADL): Start date: 03/14/19 Start time: 15:58 Current visit: Yes Status: Acute patient apparently can no longer care for herself at home.consult P.T. and O.T. as well as nutritional consult to look at her weight loss and nutritional needs. Consider placement (4) Depression: Start date: 03/14/19 Start time: 15:58 Current visit: No Status: None started on sinemet for parkinson, consider adjustment if unchanged mood Qualifiers: Depression Type: major depressive disorder Major depression recurrence: recurrent Active/Remission status: currently active Major depression episode severity: moderate Qualified Code(s): F33.1 - Major depressive disorder, recurrent, moderate (5) Ambulatory dysfunction: Start date: 03/14/19 Start time: 15:58 Current visit: Yes Status: Acute In the setting of worsening parkinsons. Gait is becoming more shuffled, and she has become weak. (6) Malnutrition: Start date: 03/14/19 Start time: 15:59 Current visit: Yes Status: Acute Nutrition consulted. (7) DVT prophylaxis: Start date: 03/14/19 Start time: 15:59 Current visit: Yes Status: Acute lovenox subcu. Subjective Patient reports: other Interval history since last seen: Started on simemet for parkinson by neurology. Flat affect, rigid movement with shuffling gait. Continues to hallucinate. Denies abdominal pain today. Tolerating regular diet. Denies CP, SOB, n/v/d. Exam Narrative Exam Narrative: Const: pleasant soft spoken, looks Older than stated age female sitting up in chair. Neck: No lymphedema Resp: Lungs clear to all mccann. Speaking complete sentences. Cardio: RRR, no murmur appreciated GI: abdomen thin, soft no tenderness upon palpation, does have CV pressure to right side. Skin: No clubbing, edema or cyanosis Neuro: having hallucinations, Extrem: tremulous and weakness to bilateral LE. Objective Objective Clinical Data: Abnormal lab results 03/13/19 03/13/19 03/14/19 Range/Units 06:55 19:45 06:32 WBC (4.4-10.8) k/cumm MPV (8.0-11.0) fL Absolute Lymphocytes (1.2-3.4) k/cumm Chloride 108 H (98-107) mmol/L Prealbumin 19 L (20-40) mg/dL HDL Cholesterol (40-60) mg/dL Urine Blood Trace-intact H (Negative) 03/14/19 03/14/19 Range/Units 06:32 06:32 WBC 4.02 L (4.4-10.8) k/cumm MPV 11.9 H (8.0-11.0) fL Absolute Lymphocytes 1.03 L (1.2-3.4) k/cumm Chloride (98-107) mmol/L Prealbumin (20-40) mg/dL HDL Cholesterol 86 H (40-60) mg/dL Urine Blood (Negative) Vital Signs Temperature 36.9 C 03/14/19 11:14 Temperature Source Tympanic 03/14/19 11:14 Pulse 80 03/14/19 11:14 Pulse Rhythm Regular 03/14/19 07:45 Respiratory Rate 18 03/14/19 11:14 Respiratory Effort Non-Labored 03/14/19 07:45 Respiratory Depth Normal 03/14/19 07:45 Respiratory Pattern Normal 03/14/19 07:45 Blood Pressure 112/69 03/14/19 11:14 Blood Pressure Position Sitting 03/12/19 17:06 Pulse Oximetry 99 03/14/19 11:14 Oxygen Delivery Method Room Air 03/14/19 11:14 Oxygen Flow Rate 0 03/14/19 11:14 Pain Level 0 03/14/19 08:14 Comment 03/13/19 15:53 Intake & Output 03/13/19 03/14/19 03/14/19 23:59 11:59 23:59 Intake Total 2410.833 / 4410.833 1205 / 1465 260 / 1465 Output Total 1700 / 2100 800 / 1000 200 / 1000 Balance 710.833 / 2310.833 405 / 465 60 / 465 Weight 52.163 kg 50.8 kg Intake: IV 2170.833 / 4170.833 1205 / 1225 20 / 1225 Oral 240 / 240 0 / 240 240 / 240 Output: Urine 1700 / 2099 800 / 1000 200 / 1000 Other: Urine Color Yellow Yellow Yellow Urine Appearance Clear Clear Cloudy Urine Odor Normal Normal None Comment ALSO, INCONTINENT OF LARGE AMT IN BRIEFS Voids in bedside commonde. Voiding Methods Bedside Commode Bedside Commode Bedside Commode Laboratory Results WBC 4.02 k/cumm (4.4-10.8) L 03/14/19 06:32 RBC 4.05 m/cumm (4.00-5.20) 03/14/19 06:32 Hgb 12.4 g/dL (12.0-15.5) 03/14/19 06:32 Hct 38.1 % (36.0-46.0) 03/14/19 06:32 MCV 94.1 fL (80-95) 03/14/19 06:32 MCH 30.6 pg (27.0-33.0) 03/14/19 06:32 MCHC 32.5 g/dL (32.0-36.0) 03/14/19 06:32 RDW 12.9 % (11.7-14.6) 03/14/19 06:32 Plt Count 139 x1000/uL (130-400) 03/14/19 06:32 MPV 11.9 fL (8.0-11.0) H 03/14/19 06:32 Immature Gran % 0.0 03/14/19 06:32 65.2 03/14/19 06:32 25.6 03/14/19 06:32 7.5 03/14/19 06:32 1.0 03/14/19 06:32 0.7 03/14/19 06:32 Absolute Neutrophils 2.62 k/cumm (1.2-6.7) 03/14/19 06:32 Absolute Lymphocytes 1.03 k/cumm (1.2-3.4) L 03/14/19 06:32 Absolute Monocytes 0.30 k/cumm (0.11-0.7) 03/14/19 06:32 Absolute Eosinophils 0.04 k/cumm (0.0-0.7) 03/14/19 06:32 Absolute Basophils 0.03 k/cumm (0.0-0.2) 03/14/19 06:32 Sodium 142 mmol/L (136-145) 03/14/19 06:32 Potassium 3.8 mmol/L (3.5-5.1) 03/14/19 06:32 Chloride 108 mmol/L (98-107) H 03/14/19 06:32 Carbon Dioxide 26.3 mmol/L (21.0-32.0) 03/14/19 06:32 7.7 mmol/L (3-11) 03/14/19 06:32 BUN 16 mg/dL (7-18) 03/14/19 06:32 0.67 mg/dL (0.55-1.02) 03/14/19 06:32 >= 60.00 (mL/min/1.73m2) 03/14/19 06:32 Glucose 86 mg/dL (70-100) 03/14/19 06:32 Calcium 9.2 mg/dL (8.5-10.1) 03/14/19 06:32 Magnesium 2.1 mg/dL (1.8-2.4) 03/14/19 06:32 0.6 mg/dL (0.2-1.0) 03/14/19 06:32 AST 17 U/L (15-37) 03/14/19 06:32 ALT 26 U/L (12-78) 03/14/19 06:32 69 U/L (46-116) 03/14/19 06:32 < 0.05 ng/mL (0.00-0.06) 03/12/19 18:11 6.5 g/dL (6.4-8.2) 03/14/19 06:32 3.6 g/dL (3.4-5.0) 03/14/19 06:32 19 mg/dL (20-40) L 03/13/19 06:55 Triglycerides 37 mg/dL (30-150) 03/14/19 06:32 167 mg/dL (50-200) 03/14/19 06:32 LDL Cholesterol, Calc 74 mg/dL 03/14/19 06:32 86 mg/dL (40-60) H 03/14/19 06:32 76 U/L (73-393) 03/14/19 06:32 Vitamin B12 452 pg/mL (193-986) 03/13/19 06:55 > 20.0 ng/mL (8.6-20.0) H 03/13/19 06:55 TSH 1.62 uIU/mL (0.358-3.74) 03/13/19 06:55 Yellow (Yellow) 03/13/19 19:45 Clear (Clear) 03/13/19 19:45 5.5 (5-8) 03/13/19 19:45 Ur Specific [place] 1.015 (1.005-1.025) 03/13/19 19:45 Negative mg/dL (Negative) 03/13/19 19:45 Negative mg/dL (Negative) 03/13/19 19:45 Trace-intact (Negative) H 03/13/19 19:45 Negative (Negative) 03/13/19 19:45 Negative (Negative) 03/13/19 19:45 0.2 EU/dL (Up TO 0.2) 03/13/19 19:45 Ur Leukocyte Esterase Negative (Negative) 03/13/19 19:45 0-2 (0-2) 03/13/19 19:45 Negative HPF (0-5) 03/13/19 19:45 Ur Epithelial Cells Rare HPF (Negative) 03/13/19 19:45 Negative HPF (Negative) 03/13/19 19:45 Rare HPF (Negative) 03/13/19 19:45 Negative LPF (Negative) 03/13/19 19:45 Negative (Negative) 03/13/19 19:45 Negative (Negative) 03/13/19 19:45 Ur Culture Indicated? No 03/13/19 19:45 Negative mg/dL (Negative) 03/13/19 19:45
--- NOTE | 2019-03-14 15:46 | PT.INTREAT ---
Date of service: 03/14/19 Time of Service: 15:46 PT Notes Inpatient Physical Therapy Treatment Note [facility] Date: 03/14/2019 PRECAUTIONS: Fall SUBJECTIVE: Leslie is agreeable to participating in PT. She is hopeful that she will become stronger and return to baseline level of function, although indicates that she recognizes that she may need additional rehab prior to returning home. OBJECTIVE: PAIN: No complaints of pain BED MOBILITY/TRANSFERS Supine-sit: Min A Sit-stand: Min A Stand-sit: CGA Bed-Chair: Min A GAIT Assistive Device: FWW Weight bearing: Full Assist: Min A Distance: 20' Deviation: Parkinsonian gait Static standing x5 minutes with FWW support and CGA TOILETING: Patient was incontinent requiring assist ASSESSMENT: Patient tolerated a progression in gait distance with FWW support and Min A. Patient would benefit from continued gait and transfer training as well as strengthening for improved mobility and improved activity tolerance. PLAN: Continue with PTs POC TREATMENT CODE/TIME: 20 minutes; [id number]
[2019-03-14 16:28] VITALS: BP 122/69; PULSE 75; RESP 17; TEMP 37.2; O2SAT 100
[2019-03-14 19:38] VITALS: BP 113/66; PULSE 76; RESP 18; TEMP 36.7; O2SAT 100
[2019-03-14] MEDS: Melatonin 3 MG TAB 9 MG PO (21:28)
[2019-03-15] VITALS (7 sets, daily range): BP systolic 99–144; BP diastolic 54–78; PULSE 67–83; RESP 17–18; TEMP 36.2–37.3; O2SAT 96–100
[2019-03-15] MEDS: Normal Saline 1,000 ML 150 ML IV ×2 (05:57→13:20)
[2019-03-15] MEDS: Cholecalciferol (Vitamin D3) 1,000 UNIT TAB 1000 UNITS PO (08:27)
[2019-03-15] MEDS: Hydroxychloroquine 200 MG TAB 100 MG PO ×3 (08:29→22:26)
[2019-03-15] MEDS: Nystatin 500000 UNITS/5 ML SUSP 5ML CUP PO ×4 (08:29→22:26)
[2019-03-15] MEDS: Vitamin E 400 UNITS CAP PO (08:29)
[2019-03-15] MEDS: buPROPion 100 MG TAB PO ×2 (08:29→22:26)
[2019-03-15] MEDS: Clarithromycin 500 MG TAB 250 MG PO ×3 (08:30→22:26)
--- NOTE | 2019-03-15 10:10 | W.PM.PROGNOT ---
Date of Service Date of service: 03/15/19 Time of Service: 10:12 Assessment and Plan (1) Parkinsonism: Current visit: Yes Status: Suspected 68 y/o female with newly diagnosed Parkinson's. Neurology consult noted. Started on Sinemet. (2) Acute cholecystitis: Current visit: Yes Status: Acute 68 y/o female with known cholelithiasis. Findings on CT abd/pelvis and abdominal ultrasound on this admission consistent with acute cholecystitis. Cliinically, her abdomen is benign. She is asymptomatic at this time. LFTs, lipase, and WBC have not been elevated on this admission. She is afebrile. She has been tolerating a regular diet. Consider cholecystectomy when cleared from a medical standpoint for surgery. No urgent indication for surgery as she does not appear to be septic or even symptomatic at this time. Follow-up with general surgery as an outpatient in 1-2 weeks after discharge to schedule elective laparoscopic cholecystectomy. Suggested that she keep a food diary to track how she is eating and see if there are food aversions/ triggers she has not been aware of. We discussed symptoms of biliary colic to watch for. We discussed following-up sooner if she does develop abdominal symptoms. All questions answered. Patient agreeable with plans as discussed above. Also discussed with hospitalist, Dr. Sofia. Will follow-up peripherally while inpatient. Please call if needed. Subjective Patient reports: no new complaints Interval history since last seen: Patient seen with her friend/ caregiver at bedside. Neurology consult noted. Patient started on Sinemet for Parkinson's. Patient was started on a regular diet yesterday. She has tolerated several meals including breakfast today without nausea, vomiting, or abdominal pain. LFTs, WBC, lipase 03/14/19 not elevated. Brain MRI suggestive of small vessel ischemic disease per report. CXR unremarkable. Exam Const General: cooperative, comfortable and no acute distress Nutritional Appearance: cachectic Orientation: alert and oriented x3 HENMT Head: normocephalic and atraumatic Resp Effort & Inspection: normal respiratory effort and able to speak in complete sentences GI Inspection: non-distended Palpation: soft, not firm, no guarding, no masses, not rigid and nontender Auscultation: normal bowel sounds Skin General skin exam: no rashes or lesions noted and no jaundice Objective Objective Clinical Data: Abnormal lab results 03/13/19 03/14/19 Range/Units 06:55 06:32 Prealbumin 19 L (20-40) mg/dL HDL Cholesterol 86 H (40-60) mg/dL Vital Signs Temperature 37.0 C 03/15/19 07:25 Temperature Source Tympanic 03/15/19 07:25 Pulse 79 03/15/19 07:25 Pulse Rhythm Regular 03/15/19 03:10 Respiratory Rate 18 03/15/19 07:25 Respiratory Effort 03/15/19 03:10 Respiratory Depth Normal 03/15/19 03:10 Respiratory Pattern Normal 03/15/19 03:10 Blood Pressure 127/78 03/15/19 07:25 Blood Pressure Position Sitting 03/12/19 17:06 Pulse Oximetry 99 03/15/19 07:25 Oxygen Delivery Method Room Air 03/15/19 07:25 Oxygen Flow Rate 0 03/15/19 07:25 Pain Level 0 03/15/19 07:25 Comment 03/15/19 03:50 Intake & Output 03/14/19 03/14/19 03/15/19 11:59 23:59 11:59 Intake Total 1205 / 2632.5 1427.5 / 2632.5 1460 / 1460 Output Total 800 / 1850 1050 / 1850 1350 / 1350 Balance 405 / 782.5 377.5 / 782.5 110 / 110 Weight 50.8 kg 49.9 kg Intake: IV 1205 / 2152.5 947.5 / 2152.5 1000 / 1000 Oral 0 / 480 480 / 480 460 / 460 Output: Urine 800 / 1850 1050 / 1850 1350 / 1350 Other: Urine Color Yellow Pale Pale Yellow Yellow Urine Appearance Clear Clear Clear Urine Odor Normal None None Comment ALSO, INCONTINENT OF LARGE AMT IN BRIEFS Voids in bedside commonde. INCONTINENT AND CONTINENT BOTH. CLEANSED AND BARRIER CREAM APPLIED Voiding Methods Bedside Commode Bedside Commode Bedside Commode Laboratory Results WBC 4.02 k/cumm (4.4-10.8) L 03/14/19 06:32 RBC 4.05 m/cumm (4.00-5.20) 03/14/19 06:32 Hgb 12.4 g/dL (12.0-15.5) 03/14/19 06:32 Hct 38.1 % (36.0-46.0) 03/14/19 06:32 MCV 94.1 fL (80-95) 03/14/19 06:32 MCH 30.6 pg (27.0-33.0) 03/14/19 06:32 MCHC 32.5 g/dL (32.0-36.0) 03/14/19 06:32 RDW 12.9 % (11.7-14.6) 03/14/19 06:32 Plt Count 139 x1000/uL (130-400) 03/14/19 06:32 MPV 11.9 fL (8.0-11.0) H 03/14/19 06:32 Immature Gran % 0.0 03/14/19 06:32 65.2 03/14/19 06:32 25.6 03/14/19 06:32 7.5 03/14/19 06:32 1.0 03/14/19 06:32 0.7 03/14/19 06:32 Absolute Neutrophils 2.62 k/cumm (1.2-6.7) 03/14/19 06:32 Absolute Lymphocytes 1.03 k/cumm (1.2-3.4) L 03/14/19 06:32 Absolute Monocytes 0.30 k/cumm (0.11-0.7) 03/14/19 06:32 Absolute Eosinophils 0.04 k/cumm (0.0-0.7) 03/14/19 06:32 Absolute Basophils 0.03 k/cumm (0.0-0.2) 03/14/19 06:32 Sodium 142 mmol/L (136-145) 03/14/19 06:32 Potassium 3.8 mmol/L (3.5-5.1) 03/14/19 06:32 Chloride 108 mmol/L (98-107) H 03/14/19 06:32 Carbon Dioxide 26.3 mmol/L (21.0-32.0) 03/14/19 06:32 7.7 mmol/L (3-11) 03/14/19 06:32 BUN 16 mg/dL (7-18) 03/14/19 06:32 0.67 mg/dL (0.55-1.02) 03/14/19 06:32 >= 60.00 (mL/min/1.73m2) 03/14/19 06:32 Glucose 86 mg/dL (70-100) 03/14/19 06:32 Calcium 9.2 mg/dL (8.5-10.1) 03/14/19 06:32 Magnesium 2.1 mg/dL (1.8-2.4) 03/14/19 06:32 0.6 mg/dL (0.2-1.0) 03/14/19 06:32 AST 17 U/L (15-37) 03/14/19 06:32 ALT 26 U/L (12-78) 03/14/19 06:32 69 U/L (46-116) 03/14/19 06:32 < 0.05 ng/mL (0.00-0.06) 03/12/19 18:11 6.5 g/dL (6.4-8.2) 03/14/19 06:32 3.6 g/dL (3.4-5.0) 03/14/19 06:32 19 mg/dL (20-40) L 03/13/19 06:55 Triglycerides 37 mg/dL (30-150) 03/14/19 06:32 167 mg/dL (50-200) 03/14/19 06:32 LDL Cholesterol, Calc 74 mg/dL 03/14/19 06:32 86 mg/dL (40-60) H 03/14/19 06:32 76 U/L (73-393) 03/14/19 06:32 Vitamin B12 452 pg/mL (193-986) 03/13/19 06:55 > 20.0 ng/mL (8.6-20.0) H 03/13/19 06:55 TSH 1.62 uIU/mL (0.358-3.74) 03/13/19 06:55 Yellow (Yellow) 03/13/19 19:45 Clear (Clear) 03/13/19 19:45 5.5 (5-8) 03/13/19 19:45 Ur Specific [place] 1.015 (1.005-1.025) 03/13/19 19:45 Negative mg/dL (Negative) 03/13/19 19:45 Negative mg/dL (Negative) 03/13/19 19:45 Trace-intact (Negative) H 03/13/19 19:45 Negative (Negative) 03/13/19 19:45 Negative (Negative) 03/13/19 19:45 0.2 EU/dL (Up TO 0.2) 03/13/19 19:45 Ur Leukocyte Esterase Negative (Negative) 03/13/19 19:45 0-2 (0-2) 03/13/19 19:45 Negative HPF (0-5) 03/13/19 19:45 Ur Epithelial Cells Rare HPF (Negative) 03/13/19 19:45 Negative HPF (Negative) 03/13/19 19:45 Rare HPF (Negative) 03/13/19 19:45 Negative LPF (Negative) 03/13/19 19:45 Negative (Negative) 03/13/19 19:45 Negative (Negative) 03/13/19 19:45 Ur Culture Indicated? No 03/13/19 19:45 Negative mg/dL (Negative) 03/13/19 19:45
--- NOTE | 2019-03-15 10:33 | OTIE_ITS ---
Occupational Therapy Notes Inpatient Occupational Therapy Evaluation Date:03/15/19 Referring Doctor:Isra Jensen MD OT Orders: evaluate and treat for decreased ADL performance Precautions: Fall. Standard Patient Profile/Admitting Diagnosis: Pt is a 68 year old female who has had a lost over 70 pounds and has gotten progressively weaker. She reports that she is unable to care for herself at home and feels that she is getting significant;y weaker in her (I) in her ADL performance. PMHX: Medical History Depression Gallstones Osteopenia Surgical History Cervical Conization/LEEP Colonoscopy - IV Sedation EGD - MAC (12/31/16) L wrist tendon repair Tonsillectomy and adenoidectomy wrist ORIF left Social History/Home Situation: Lives alone in her home up until this point. Is very active in the [facility] [place] historically. She reports that her 80 year old landlord takes care of her when she is around. She notes that she has significantly declined in ADLs. She has a tub/shower and reports that sometimes she lays in the tub but has difficulty getting out but her balance is so poor that she is scared to stand. OT recommends a shower bench for pts safety. She has Meals on Wheels and relies on friends for driving. She reports that she can drive but does not feel safe due to her decreased reaction time. Equipment Owned/DME: Wheelchair for when she goes out with her friends. Subjective: Patient states she can not recall anything that could have caused this decline in her function. She states that she is scared that she cannot care for herself and does not feel safe with performing her ADLs at this time. OBJECTIVE: General Observation: Slight tremor in neck and face, pleasant but exhibits anxious behaviors when discussing ADL performance. Mental Status: A&Ox3 Pain: no c/o pain ROM: RUE WFL L UE WFL STRENGTH: RUE 4+/5 throughout globally LUE 4+/5 throughout globally FUNCTIONAL MOBILITY/ADLS: Sit-Stand CGA Stand-sit CGA BATHING Pt denies. DRESSING Pt was able to (I) don and doff her (B) socks in the sitting position with ideal technique GROOMING Sitting in chair (I) brush her hair TOILETING NT EATING (I) sitting in chair BALANCE: Static sitting Good Dynamic Sitting Good Static Standing Good SPECIAL TESTS: Daily Activity Limitations Standardized Measure [facility] AM -PAC ?6 clicks? Daily Activity Inpatient Short Form: Raw score: 21 Standardized score: 44.27 CMS score: 32.79% INFORMED CONSENT/EDUCATION: Pt instructed in purpose of OT Consult and plan of care. ASSESSMENT: Patient is a 68-year-old female referred to occupational therapy services with diagnosis of progressive weakness and decreased (I) in her ADL ro utines. Patient presents with clinical signs and symptoms consistent with dx, as demonstrated by the following impairment level findings/ functional limitations: Decreased functional activity tolerance, decreased safety awareness, decreased functional dynamic movements, tremor in (B) UE, decreased functional mobility. AMPAC score 21, CMS score 32.79% Patient is assessed as a Moderate 67113 complexity based on the following: History: See Above Examination: See Above Presentation: Evolving Decision Making: AMPAC score 21, CMS score 32.79% GOALS Goals x1 week 1. Transfers (S), FWW 2. Dressing (I) UE/LE 3. Bathing (I) UE/LE 4. Toileting (I) on toilet 5. Eating (I) PLAN OF CARE/TREATMENT PLAN: 1x/day, 5 days/ week x 1week Initiate Occupational Therapy Services for bathing, dressing, grooming, toileting, eating, transfer training. DISCHARGE RECOMMENDATIONS Short term stay at SNF vs home with HH OT OT recommends a shower bench to increase pts safety in bathroom for transfers and decreased functional activity tolerance. TREATMENT TIME/MINUTES/CODES 93369, 20 minutes (07:40) Teresa Lawson OTR/[facility]
--- NOTE | 2019-03-15 11:21 | W.PM.PROGNOT ---
Date of Service Date of service: 03/15/19 Time of Service: 11:21 Assessment and Plan (1) Nocturia: Current visit: Yes Status: Acute (2) Idiopathic Parkinson's disease: Current visit: No Status: Acute (3) Decreased activities of daily living (ADL): Current visit: Yes Status: Acute (4) Malnutrition: Current visit: Yes Status: Acute Ms. Saenz is a 68-year-old, right-handed woman who was admitted with a 2+ year history of progressive shuffling gait with periodic freezing, tremors, gait imbalance, and weight loss with a more recent inability to be cared for at home. Her neurological exam is consistent with Parkinson's disease. She has had some improvement with the addition of Sinemet but continues to have severe bradykinesia most especially in the LEs. I recommend we increase Sinemet to 2x25/100mg TID at ~8am, noon, and 4pm. ADRs were reviewed with her again. She may need an HS dose, but will continue to monitor. We also discussed the addition of oxybutynin 5 mg at bedtime for her nocturia/overactive bladder (common in PD). ADRs were discussed including worsening confusion. She was agreeable to starting this. She should continue to participate with physical therapy and Occupational Therapy. I will continue to come by on a regular basis to see how she is adapting to Sinemet. She will need neurological follow-up at discharge. DISCLAIMER: This note was created using [employer] voice recognition software. Subjective Interval history since last seen: Ms. Saenz had no events overnight. She was started on Sinemet yesterday. She has noticed increased mobility. Her tremors have reduced. She has not had any side effects. She participated in occupational therapy this am and is very tired. She is not sleeping well here at the hospital due to the soft mattress. She is getting stuck and cannot move. At home, she does not sleep well either which seems to be due to nocturia. She often gets up at least 4 times per night to urinate. In the last 1 week prior to admission, she had to resort to wearing adult diapers as she was unable to get out of bed to urinate. Exam Narrative Exam Narrative: Physical Exam: Constitutional: Patient of apparent stated age, well nourished, well developed, no acute distress Neuro: MS/Language/Speech: Alert, oriented, clear language (fluency and comprehension), no dysarthria Motor: Normal bulk. Bilateral cogwheel rigidity. Mild LUE bradykinsia with more severe bilateral LE bradykinesia. FMM reduced bilaterally, no pronator drift. Formal strength testing limited especially in the LE due to severe bradykinesia. No significant tremors. Sensation: Intact to light touch throughout Coordination: Finger to nose performed without dysmetria Gait: Deferred Objective Objective Clinical Data: Abnormal lab results 03/13/19 03/14/19 Range/Units 06:55 06:32 Prealbumin 19 L (20-40) mg/dL HDL Cholesterol 86 H (40-60) mg/dL Vital Signs Temperature 37.0 C 03/15/19 07:25 Temperature Source Tympanic 03/15/19 07:25 Pulse 79 03/15/19 07:25 Pulse Rhythm Regular 03/15/19 03:10 Respiratory Rate 18 03/15/19 07:25 Respiratory Effort 03/15/19 03:10 Respiratory Depth Normal 03/15/19 03:10 Respiratory Pattern Normal 03/15/19 03:10 Blood Pressure 127/78 03/15/19 07:25 Blood Pressure Position Sitting 03/12/19 17:06 Pulse Oximetry 99 03/15/19 07:25 Oxygen Delivery Method Room Air 03/15/19 07:25 Oxygen Flow Rate 0 03/15/19 07:25 Pain Level 0 03/15/19 07:25 Comment 03/15/19 03:50 Intake & Output 03/14/19 03/14/19 03/15/19 11:59 23:59 11:59 Intake Total 1205 / 2632.5 1427.5 / 2632.5 1460 / 1460 Output Total 800 / 1850 1050 / 1850 1350 / 1350 Balance 405 / 782.5 377.5 / 782.5 110 / 110 Weight 50.8 kg 49.9 kg Intake: IV 1205 / 2152.5 947.5 / 2152.5 1000 / 1000 Oral 0 / 480 480 / 480 460 / 460 Output: Urine 800 / 1850 1050 / 1850 1350 / 1350 Other: Urine Color Yellow Pale Pale Yellow Yellow Urine Appearance Clear Clear Clear Urine Odor Normal None None Comment ALSO, INCONTINENT OF LARGE AMT IN BRIEFS Voids in bedside commonde. INCONTINENT AND CONTINENT BOTH. CLEANSED AND BARRIER CREAM APPLIED Voiding Methods Bedside Commode Bedside Commode Bedside Commode Laboratory Results WBC 4.02 k/cumm (4.4-10.8) L 03/14/19 06:32 RBC 4.05 m/cumm (4.00-5.20) 03/14/19 06:32 Hgb 12.4 g/dL (12.0-15.5) 03/14/19 06:32 Hct 38.1 % (36.0-46.0) 03/14/19 06:32 MCV 94.1 fL (80-95) 03/14/19 06:32 MCH 30.6 pg (27.0-33.0) 03/14/19 06:32 MCHC 32.5 g/dL (32.0-36.0) 03/14/19 06:32 RDW 12.9 % (11.7-14.6) 03/14/19 06:32 Plt Count 139 x1000/uL (130-400) 03/14/19 06:32 MPV 11.9 fL (8.0-11.0) H 03/14/19 06:32 Immature Gran % 0.0 03/14/19 06:32 65.2 03/14/19 06:32 25.6 03/14/19 06:32 7.5 03/14/19 06:32 1.0 03/14/19 06:32 0.7 03/14/19 06:32 Absolute Neutrophils 2.62 k/cumm (1.2-6.7) 03/14/19 06:32 Absolute Lymphocytes 1.03 k/cumm (1.2-3.4) L 03/14/19 06:32 Absolute Monocytes 0.30 k/cumm (0.11-0.7) 03/14/19 06:32 Absolute Eosinophils 0.04 k/cumm (0.0-0.7) 03/14/19 06:32 Absolute Basophils 0.03 k/cumm (0.0-0.2) 03/14/19 06:32 Sodium 142 mmol/L (136-145) 03/14/19 06:32 Potassium 3.8 mmol/L (3.5-5.1) 03/14/19 06:32 Chloride 108 mmol/L (98-107) H 03/14/19 06:32 Carbon Dioxide 26.3 mmol/L (21.0-32.0) 03/14/19 06:32 7.7 mmol/L (3-11) 03/14/19 06:32 BUN 16 mg/dL (7-18) 03/14/19 06:32 0.67 mg/dL (0.55-1.02) 03/14/19 06:32 >= 60.00 (mL/min/1.73m2) 03/14/19 06:32 Glucose 86 mg/dL (70-100) 03/14/19 06:32 Calcium 9.2 mg/dL (8.5-10.1) 03/14/19 06:32 Magnesium 2.1 mg/dL (1.8-2.4) 03/14/19 06:32 0.6 mg/dL (0.2-1.0) 03/14/19 06:32 AST 17 U/L (15-37) 03/14/19 06:32 ALT 26 U/L (12-78) 03/14/19 06:32 69 U/L (46-116) 03/14/19 06:32 < 0.05 ng/mL (0.00-0.06) 03/12/19 18:11 6.5 g/dL (6.4-8.2) 03/14/19 06:32 3.6 g/dL (3.4-5.0) 03/14/19 06:32 19 mg/dL (20-40) L 03/13/19 06:55 Triglycerides 37 mg/dL (30-150) 03/14/19 06:32 167 mg/dL (50-200) 03/14/19 06:32 LDL Cholesterol, Calc 74 mg/dL 03/14/19 06:32 86 mg/dL (40-60) H 03/14/19 06:32 76 U/L (73-393) 03/14/19 06:32 Vitamin B12 452 pg/mL (193-986) 03/13/19 06:55 > 20.0 ng/mL (8.6-20.0) H 03/13/19 06:55 TSH 1.62 uIU/mL (0.358-3.74) 03/13/19 06:55 Yellow (Yellow) 03/13/19 19:45 Clear (Clear) 03/13/19 19:45 5.5 (5-8) 03/13/19 19:45 Ur Specific [place] 1.015 (1.005-1.025) 03/13/19 19:45 Negative mg/dL (Negative) 03/13/19 19:45 Negative mg/dL (Negative) 03/13/19 19:45 Trace-intact (Negative) H 03/13/19 19:45 Negative (Negative) 03/13/19 19:45 Negative (Negative) 03/13/19 19:45 0.2 EU/dL (Up TO 0.2) 03/13/19 19:45 Ur Leukocyte Esterase Negative (Negative) 03/13/19 19:45 0-2 (0-2) 03/13/19 19:45 Negative HPF (0-5) 03/13/19 19:45 Ur Epithelial Cells Rare HPF (Negative) 03/13/19 19:45 Negative HPF (Negative) 03/13/19 19:45 Rare HPF (Negative) 03/13/19 19:45 Negative LPF (Negative) 03/13/19 19:45 Negative (Negative) 03/13/19 19:45 Negative (Negative) 03/13/19 19:45 Ur Culture Indicated? No 03/13/19 19:45 Negative mg/dL (Negative) 03/13/19 19:45
--- NOTE | 2019-03-15 12:05 | PT.INTREAT ---
Date of service: 03/15/19 Time of Service: 12:05 PT Notes Inpatient Physical Therapy Treatment Note [facility] Date: 03/15/2019 PRECAUTIONS: Fall SUBJECTIVE: Maki states that she feels encouraged and notes that she feels she is making progress. OBJECTIVE: PAIN: No c/o pain BED MOBILITY/TRANSFERS Supine-sit: Mod A with max cueing in a.m.; SBA with max cues in p.m. Sit-stand: CGA in a.m.; Min A in p.m. Stand-sit: CGA GAIT Assistive Device: FWW Weight bearing: Full Assist: CGA Distance: 30' + 20' in a.m.; 100' x2 in p.m. Deviation: Parkinsonian gait, cueing for increased step length and to look up in both a.m. and p.m.; standing rest x1 in p.m. THEREX: Patient completed a LE and UE strengthening program in a seated position, as per flow sheet. Added shoulder and hip flexion with opposite UE and LE, progressing to alternating UE and LE. Also added alternating punch-out and LAQ with opposite UE and LE. Patient was unable to perform sit?to?stand exercise at this time. TOILETING: Incontinent of urine, requiring assist. ASSESSMENT: Patient tolerated a progression in gait distance with FWW support and CGA with max cueing for increased step length. Patient was able to tolerate a progression in ther ex as well. Patient would benefit from continued gait and transfer training, as well as general conditioning for improved mobility and activity tolerance. PLAN: Continue with PT's POC TREATMENT CODE/TIME: Session 1: 30 minutes; 38215, [id number] Session 2: 30 minutes; 30203, [id number]
[2019-03-15] MEDS: Enoxaparin 40 MG/0.4 ML SYR SC (13:20)
--- NOTE | 2019-03-15 15:35 | PDOC.CMPRO ---
Care Management Progress Note S/O: Leslie was sitting up in bed, Lor at her bedside when CM met with her. She processed her feelings around the drastic changes in her level of functioning. CM remains agreeable to SNF upon discharge and reported wanting to explore community based resources including assisted living after her rehab stay. She reported being unsure what her new baseline level of functioning would be but did not feel confident she would be able to return to her second floor apartment in [facility] and inquired to [facility] and [place]. CM reviewed community based supports and social work supports to follow at [facility]. CM will continue to follow and support discharge planning considerations. Leslie reported having secondary insurance; [employer]. She agreed to provide additional insurance information to [facility]. Leslie also reported having some funds put away for her care as well. CM reviewed Leslie with Alex at [employer]. A: 68 year old female admitted to [facility] 03/13/19 for Failure to thrive, generalized weakness, ?Parkinson's P: Leslie will continue to be closely monitored and evaluated. She will continue to work with PT and OT. Anticipate SNF transfer to [facility] once medically cleared. Anticipate cholecystectomy follow up as outpatient. CM will continue to follow.
--- NOTE | 2019-03-15 15:59 | CHAPLAIN ---
Leslie was resting in bed when I visited. Her friend and landlord, Lor, was with her. Leslie speaks softly and seems to have low energy, but engaged in a conversation, sharing personal history. Leslie practices [employer] and retired after working at the [employer] in [place]. Previously she worked at a [employer] in the [facility]. She talked about finding her way to [employer] and how comfortable that felt for her. Lor has been with Leslie today, and another friend, Diamond Gerardo was with her yesterday.
--- NOTE | 2019-03-15 16:23 | W.NUTCONSULT ---
Date of service: 03/15/19 Time of Service: 16:23 Nutritional Consult ASSESSMENT: Appreciate nutrition consult for Leslie Saenz who is hospitalized with Parkinson's disease. At admission she is 114 pounds. Her height is inaccurate in this system so BMI cannot be calculated, but to date she has lost ~2 kg. Met with Leslie who states she receives Meals on Wheels at home. She feels she eats well here 100% of her meals and is satisfied. She is willing to try to increase her calories. NUTRITIONAL DIAGNOSIS: Inadequate caloric intake in the presence of disease requiring high calories. INTERVENTION: Reviewed her food likes. She loves potato with gravy and is willing to have butter added to that. She is willing to have peanut butter crackers mid-morning, vanilla CIB shake in the afternoon; custard in the evening. She is also willing to increase her meat portion. I switched her to whole milk. MONITORING AND EVALUATION: Will look for her acceptance of these changes and continue meeting with her as needed. Will monitor weight. Time Spent in Nutritional Counseling and Treatment: 15 minutes face to face
--- NOTE | 2019-03-15 16:32 | W.PM.PROGNOT ---
Date of Service Date of service: 03/15/19 Time of Service: 16:32 Assessment and Plan (1) Idiopathic Parkinson's disease: Current visit: No Status: Acute Sinemet started yesterday and dose increased today based on neurology recommendations. Symptoms appear to be improving. Continue physical therapy and Occupational Therapy. (2) Acute cholecystitis: Current visit: Yes Status: Acute Appears to possibly be a chronic problem. She reports nausea today. No abdominal pain. She is tolerating her diet. She has been seen by general surgery, Dr. Reddy recommends Follow-up with general surgery as an outpatient in 1-2 weeks after discharge to schedule elective laparoscopic cholecystectomy. She also suggested that she keep a food diary to track how she is eating and see if there are food aversions/ triggers she has not been aware of. Avoid fatty foods/triggers. Continue to monitor. Phenergan for nausea. (3) Decreased activities of daily living (ADL): Current visit: Yes Status: Acute Related to parkinsons. Unable to care for herself at home. Continue sinemet. Continue PT/OT. Care management is working on placement at [facility]. (4) Depression: Current visit: No Status: None Likely related to Parkinson's. Continue home wellbutrin. Continue sinemet. Qualifiers: Depression Type: major depressive disorder Major depression recurrence: recurrent Active/Remission status: currently active Major depression episode severity: moderate Qualified Code(s): F33.1 - Major depressive disorder, recurrent, moderate (5) Ambulatory dysfunction: Current visit: Yes Status: Acute Patient reports improvement in mobility. Continue PT/OT. (6) Malnutrition: Current visit: Yes Status: Acute Nurtition consult pending. (7) Nocturia: Current visit: Yes Status: Acute Trial Oxybutynin. (8) DVT prophylaxis: Current visit: Yes Status: Acute Subcutaneous lovenox. (9) Discharge planning issues: Current visit: Yes Status: Acute She is a full code. Care management is working on placement at a [facility] facility. This case was discussed with Dr. Sofia who is in agreement peer Subjective Interval history since last seen: Leslie Saenz was started on Sinemet for Parkinson's by neurology yesterday. She recommended that we increase the dose today. She reports that her weakness is improving and her mobility is increasing, although she continues to feel weak. She does not recall having tremors. She did not sleep well last night. She reported frequent urination at night to Dr. Moore. She reports feeling nauseated, she relates the nausea to overexerting herself physically. She has been eating and drinking and tolerating her diet. She denies abdominal pain. She denies any other concerns, such as dizziness, shortness of breath, coughing, wheezing, chest pain/pressure, palpitations, or edema. Exam Narrative Exam Narrative: General: Elderly female, sitting up in the chair with eyes closed, appears older than stated age. Pleasant and cooperative, answers questions appropriately. Appears to be in no acute distress. Flat affect. HEENT: Normocephalic, atraumatic, pupils equal and round, extraocular movements intact, mucous membranes moist. Neck: Supple, no JVD. Respiratory: Respirations even and unlabored, lung sounds clear to auscultation throughout. Cardiovascular: Heart is regular rate and rhythm, no murmur appreciated. GI: Abdomen flat, soft, nontender on palpation, nondistended with normal active bowel sounds. Extremities: No significant tremors, no clubbing, cyanosis or edema. Objective Objective Clinical Data: Vital Signs Temperature 37 C 03/15/19 15:55 Temperature Source Tympanic 03/15/19 15:55 Pulse 78 03/15/19 15:55 Pulse Rhythm Regular 03/15/19 03:10 Respiratory Rate 17 03/15/19 15:55 Respiratory Effort 03/15/19 03:10 Respiratory Depth Normal 03/15/19 03:10 Respiratory Pattern Normal 03/15/19 03:10 Blood Pressure 108/64 03/15/19 15:55 Blood Pressure Position Sitting 03/12/19 17:06 Pulse Oximetry 98 03/15/19 15:55 Oxygen Delivery Method Room Air 03/15/19 15:55 Oxygen Flow Rate 0 03/15/19 15:55 Pain Level 0 03/15/19 07:25 Comment 03/15/19 03:50 Intake & Output 03/14/19 03/15/19 03/15/19 23:59 11:59 23:59 Intake Total 1427.5 / 2632.5 1460 / 2460 1000 / 2460 Output Total 1050 / 1850 1350 / 1350 Balance 377.5 / 782.5 110 / 1110 1000 / 1110 Weight 49.9 kg Intake: IV 947.5 / 2152.5 999 / 1999 1000 / 1999 Oral 480 / 480 460 / 460 Output: Urine 1050 / 1850 1350 / 1350 Other: Urine Color Pale Pale Yellow Yellow Urine Appearance Clear Clear Urine Odor None None Comment Voids in bedside commonde. INCONTINENT AND CONTINENT BOTH. CLEANSED AND BARRIER CREAM APPLIED Voiding Methods Bedside Commode Bedside Commode Laboratory Results WBC 4.02 k/cumm (4.4-10.8) L 03/14/19 06:32 RBC 4.05 m/cumm (4.00-5.20) 03/14/19 06:32 Hgb 12.4 g/dL (12.0-15.5) 03/14/19 06:32 Hct 38.1 % (36.0-46.0) 03/14/19 06:32 MCV 94.1 fL (80-95) 03/14/19 06:32 MCH 30.6 pg (27.0-33.0) 03/14/19 06:32 MCHC 32.5 g/dL (32.0-36.0) 03/14/19 06:32 RDW 12.9 % (11.7-14.6) 03/14/19 06:32 Plt Count 139 x1000/uL (130-400) 03/14/19 06:32 MPV 11.9 fL (8.0-11.0) H 03/14/19 06:32 Immature Gran % 0.0 03/14/19 06:32 65.2 03/14/19 06:32 25.6 03/14/19 06:32 7.5 03/14/19 06:32 1.0 03/14/19 06:32 0.7 03/14/19 06:32 Absolute Neutrophils 2.62 k/cumm (1.2-6.7) 03/14/19 06:32 Absolute Lymphocytes 1.03 k/cumm (1.2-3.4) L 03/14/19 06:32 Absolute Monocytes 0.30 k/cumm (0.11-0.7) 03/14/19 06:32 Absolute Eosinophils 0.04 k/cumm (0.0-0.7) 03/14/19 06:32 Absolute Basophils 0.03 k/cumm (0.0-0.2) 03/14/19 06:32 Sodium 142 mmol/L (136-145) 03/14/19 06:32 Potassium 3.8 mmol/L (3.5-5.1) 03/14/19 06:32 Chloride 108 mmol/L (98-107) H 03/14/19 06:32 Carbon Dioxide 26.3 mmol/L (21.0-32.0) 03/14/19 06:32 7.7 mmol/L (3-11) 03/14/19 06:32 BUN 16 mg/dL (7-18) 03/14/19 06:32 0.67 mg/dL (0.55-1.02) 03/14/19 06:32 >= 60.00 (mL/min/1.73m2) 03/14/19 06:32 Glucose 86 mg/dL (70-100) 03/14/19 06:32 Calcium 9.2 mg/dL (8.5-10.1) 03/14/19 06:32 Magnesium 2.1 mg/dL (1.8-2.4) 03/14/19 06:32 0.6 mg/dL (0.2-1.0) 03/14/19 06:32 AST 17 U/L (15-37) 03/14/19 06:32 ALT 26 U/L (12-78) 03/14/19 06:32 69 U/L (46-116) 03/14/19 06:32 < 0.05 ng/mL (0.00-0.06) 03/12/19 18:11 6.5 g/dL (6.4-8.2) 03/14/19 06:32 3.6 g/dL (3.4-5.0) 03/14/19 06:32 19 mg/dL (20-40) L 03/13/19 06:55 Triglycerides 37 mg/dL (30-150) 03/14/19 06:32 167 mg/dL (50-200) 03/14/19 06:32 LDL Cholesterol, Calc 74 mg/dL 03/14/19 06:32 86 mg/dL (40-60) H 03/14/19 06:32 76 U/L (73-393) 03/14/19 06:32 Vitamin B12 452 pg/mL (193-986) 03/13/19 06:55 > 20.0 ng/mL (8.6-20.0) H 03/13/19 06:55 TSH 1.62 uIU/mL (0.358-3.74) 03/13/19 06:55 Yellow (Yellow) 03/13/19 19:45 Clear (Clear) 03/13/19 19:45 5.5 (5-8) 03/13/19 19:45 Ur Specific [place] 1.015 (1.005-1.025) 03/13/19 19:45 Negative mg/dL (Negative) 03/13/19 19:45 Negative mg/dL (Negative) 03/13/19 19:45 Trace-intact (Negative) H 03/13/19 19:45 Negative (Negative) 03/13/19 19:45 Negative (Negative) 03/13/19 19:45 0.2 EU/dL (Up TO 0.2) 03/13/19 19:45 Ur Leukocyte Esterase Negative (Negative) 03/13/19 19:45 0-2 (0-2) 03/13/19 19:45 Negative HPF (0-5) 03/13/19 19:45 Ur Epithelial Cells Rare HPF (Negative) 03/13/19 19:45 Negative HPF (Negative) 03/13/19 19:45 Rare HPF (Negative) 03/13/19 19:45 Negative LPF (Negative) 03/13/19 19:45 Negative (Negative) 03/13/19 19:45 Negative (Negative) 03/13/19 19:45 Ur Culture Indicated? No 03/13/19 19:45 Negative mg/dL (Negative) 03/13/19 19:45
[2019-03-15] MEDS: Melatonin 3 MG TAB 9 MG PO (22:26)
[2019-03-15] MEDS: Oxybutynin-CR 5 MG TABCR PO (22:26)
[2019-03-16] VITALS (8 sets, daily range): BP systolic 72–128; BP diastolic 35–76; PULSE 71–95; RESP 15–16; TEMP 35.6–37.1; O2SAT 98–100
--- NOTE | 2019-03-16 08:05 | CMPROGNOTE_ITS ---
Care Management Progress Note S/O: Leslie remains pleasant in interaction. A: 68 year old female admitted to [facility] 03/13/19 for Failure to thrive, generalized weakness, ?Parkinson's P: Leslie will continue to be closely monitored and evaluated. She will continue to work with PT and OT. Anticipate SNF transfer to [facility] once medically cleared. Anticipate cholecystectomy follow up as outpatient. CM will continue to follow.
[2019-03-16] MEDS: Vitamin E 400 UNITS CAP PO (08:15)
[2019-03-16] MEDS: Clarithromycin 500 MG TAB 250 MG PO (08:15)
[2019-03-16] MEDS: buPROPion 100 MG TAB PO (08:15)
[2019-03-16] MEDS: Cholecalciferol (Vitamin D3) 1,000 UNIT TAB 1000 UNITS PO (08:15)
[2019-03-16] MEDS: Nystatin 500000 UNITS/5 ML SUSP 5ML CUP PO ×2 (08:15→13:03)
[2019-03-16] MEDS: Hydroxychloroquine 200 MG TAB 100 MG PO (08:17)
[2019-03-16] MEDS: Normal Saline Flush 10 ML SYR IVP (08:27)
--- NOTE | 2019-03-16 09:29 | PGE_ITS ---
Date of Service Date of service: 03/16/19 Time of Service: 09:29 Assessment and Plan (1) Nocturia: Current visit: Yes Status: Acute (2) Idiopathic Parkinson's disease: Current visit: No Status: Acute (3) Decreased activities of daily living (ADL): Current visit: Yes Status: Acute (4) Pre-syncope: Current visit: Yes Status: Acute (5) Malnutrition: Current visit: Yes Status: Acute Ms. Saenz is a 68-year-old, right-handed woman who was admitted with a 2+ year history of progressive shuffling gait with periodic freezing, tremors, gait imbalance, and 70# weight loss with a more recent inability to be cared for at home. Her neurological exam is consistent with Parkinson's disease. She had significant improvement with the addition and increase of Sinemet to 2x25/100mg TID at ~8am, noon, and 4pm, as of yesterday. Today, she had a pre- syncopal spell and has mild hypotension with generalized weakness. Sinemet can cause orthostatic hypotension, but as she tolerated it yesterday, I would be hard pressed to blame it as a cause for this morning's episode. Instead, she was given a dose of oxybutynin last night for nocturia. It did not seem to help and could also contribute to her dizziness and hypotension this morning. Thus I will stop that. She will continue with physical therapy and Occupational Therapy. She is awaiting placement for further rehabilitation. She will need neurological follow-up at discharge. DISCLAIMER: This note was created using [employer] voice recognition software. Subjective Interval history since last seen: Ms. Saenz was doing fantastic from a motor standpoint yesterday afternoon, after the increased Sinemet. It seems she was able to get out of bed on her own per the PT notes. Overnight, she continued to sleep poorly which she attributes to the mattress. She got up to urinate approximately 3 times. It does not seem that the oxybutynin helped. This morning, she ate her breakfast. After breakfast she got up to participate in PT and had a presyncopal episode. She was hypotensive with systolic blood pressures in the 70s. She feels slightly nauseous and generally fatigued and weak this morning. Exam Narrative Exam Narrative: Physical Exam: Sinemet taken 1.5hr prior Constitutional: Patient of apparent stated age, well nourished, well developed, no acute distress; I woke her up from sleep; Neuro: MS/Language/Speech: Alert, oriented, clear language (fluency and comprehension), no dysarthria Motor: Normal bulk. Minimal bilateral cogwheel rigidity. No signfiicant UE bradykinsia. Unable to test LE. FMM reduced bilaterally, no pronator drift. 5/5 UE strength. Hip flexors 1/5 bilaterally. No significant tremors. Sensation: Intact to light touch throughout Coordination: Finger to nose performed without dysmetria Gait: Deferred Objective Objective Clinical Data: Vital Signs Temperature 35.6 C L 03/16/19 07:30 Temperature Source Tympanic 03/16/19 07:30 Pulse 71 03/16/19 07:30 Pulse Rhythm Regular 03/16/19 07:30 Respiratory Rate 15 03/16/19 07:30 Respiratory Effort Non-Labored 03/16/19 09:21 Respiratory Depth Normal 03/15/19 22:10 Respiratory Pattern Normal 03/15/19 22:10 Blood Pressure 72/35 L 03/16/19 09:21 Blood Pressure Position Sitting 03/12/19 17:06 Pulse Oximetry 99 03/16/19 07:30 Oxygen Delivery Method Room Air 03/16/19 09:21 Oxygen Flow Rate 0 03/16/19 09:21 Pain Level 0 03/16/19 07:30 Comment 03/15/19 03:50 Intake & Output 03/15/19 03/15/19 03/16/19 11:59 23:59 11:59 Intake Total 1460 / 3075.5 1615.5 / 3075.5 500 / 500 Output Total 1350 / 1550 200 / 1550 500 / 500 Balance 110 / 1525.5 1415.5 / 1525.5 0 / 0 Weight 49.9 kg 50.2 kg Intake: IV 1000 / 2615.5 1615.5 / 2615.5 Oral 460 / 460 500 / 500 Output: Urine 1350 / 1550 200 / 1550 500 / 500 Other: Urine Color Pale Yellow Yellow Yellow Urine Appearance Clear Clear Clear Urine Odor None Normal None Comment INCONTINENT AND CONTINENT BOTH. CLEANSED AND BARRIER CREAM APPLIED Voiding Methods Bedside Commode Bedside Commode Bedside Commode Laboratory Results WBC 4.02 k/cumm (4.4-10.8) L 03/14/19 06:32 RBC 4.05 m/cumm (4.00-5.20) 03/14/19 06:32 Hgb 12.4 g/dL (12.0-15.5) 03/14/19 06:32 Hct 38.1 % (36.0-46.0) 03/14/19 06:32 MCV 94.1 fL (80-95) 03/14/19 06:32 MCH 30.6 pg (27.0-33.0) 03/14/19 06:32 MCHC 32.5 g/dL (32.0-36.0) 03/14/19 06:32 RDW 12.9 % (11.7-14.6) 03/14/19 06:32 Plt Count 139 x1000/uL (130-400) 03/14/19 06:32 MPV 11.9 fL (8.0-11.0) H 03/14/19 06:32 Immature Gran % 0.0 03/14/19 06:32 65.2 03/14/19 06:32 25.6 03/14/19 06:32 7.5 03/14/19 06:32 1.0 03/14/19 06:32 0.7 03/14/19 06:32 Absolute Neutrophils 2.62 k/cumm (1.2-6.7) 03/14/19 06:32 Absolute Lymphocytes 1.03 k/cumm (1.2-3.4) L 03/14/19 06:32 Absolute Monocytes 0.30 k/cumm (0.11-0.7) 03/14/19 06:32 Absolute Eosinophils 0.04 k/cumm (0.0-0.7) 03/14/19 06:32 Absolute Basophils 0.03 k/cumm (0.0-0.2) 03/14/19 06:32 Sodium 142 mmol/L (136-145) 03/14/19 06:32 Potassium 3.8 mmol/L (3.5-5.1) 03/14/19 06:32 Chloride 108 mmol/L (98-107) H 03/14/19 06:32 Carbon Dioxide 26.3 mmol/L (21.0-32.0) 03/14/19 06:32 7.7 mmol/L (3-11) 03/14/19 06:32 BUN 16 mg/dL (7-18) 03/14/19 06:32 0.67 mg/dL (0.55-1.02) 03/14/19 06:32 >= 60.00 (mL/min/1.73m2) 03/14/19 06:32 Glucose 86 mg/dL (70-100) 03/14/19 06:32 Calcium 9.2 mg/dL (8.5-10.1) 03/14/19 06:32 Magnesium 2.1 mg/dL (1.8-2.4) 03/14/19 06:32 0.6 mg/dL (0.2-1.0) 03/14/19 06:32 AST 17 U/L (15-37) 03/14/19 06:32 ALT 26 U/L (12-78) 03/14/19 06:32 69 U/L (46-116) 03/14/19 06:32 < 0.05 ng/mL (0.00-0.06) 03/12/19 18:11 6.5 g/dL (6.4-8.2) 03/14/19 06:32 3.6 g/dL (3.4-5.0) 03/14/19 06:32 19 mg/dL (20-40) L 03/13/19 06:55 Triglycerides 37 mg/dL (30-150) 03/14/19 06:32 167 mg/dL (50-200) 03/14/19 06:32 LDL Cholesterol, Calc 74 mg/dL 03/14/19 06:32 86 mg/dL (40-60) H 03/14/19 06:32 76 U/L (73-393) 03/14/19 06:32 Vitamin B12 452 pg/mL (193-986) 03/13/19 06:55 > 20.0 ng/mL (8.6-20.0) H 03/13/19 06:55 TSH 1.62 uIU/mL (0.358-3.74) 03/13/19 06:55 Yellow (Yellow) 03/13/19 19:45 Clear (Clear) 03/13/19 19:45 5.5 (5-8) 03/13/19 19:45 Ur Specific [place] 1.015 (1.005-1.025) 03/13/19 19:45 Negative mg/dL (Negative) 03/13/19 19:45 Negative mg/dL (Negative) 03/13/19 19:45 Trace-intact (Negative) H 03/13/19 19:45 Negative (Negative) 03/13/19 19:45 Negative (Negative) 03/13/19 19:45 0.2 EU/dL (Up TO 0.2) 03/13/19 19:45 Ur Leukocyte Esterase Negative (Negative) 03/13/19 19:45 0-2 (0-2) 03/13/19 19:45 Negative HPF (0-5) 03/13/19 19:45 Ur Epithelial Cells Rare HPF (Negative) 03/13/19 19:45 Negative HPF (Negative) 03/13/19 19:45 Rare HPF (Negative) 03/13/19 19:45 Negative LPF (Negative) 03/13/19 19:45 Negative (Negative) 03/13/19 19:45 Negative (Negative) 03/13/19 19:45 Ur Culture Indicated? No 03/13/19 19:45 Negative mg/dL (Negative) 03/13/19 19:45
[2019-03-16] MEDS: Normal Saline 500 ML IV ×2 (10:22→12:15)
--- NOTE | 2019-03-16 10:41 | OT.INTREAT ---
Date of service: 03/16/19 Time of Service: 09:45 Occupational Therapy Notes Occupational Therapy Inpatient Treatment Note Date: 03/16/19 PRECAUTIONS: Fall, Standard SUBJECTIVE: Pt was lying in bed when OT arrived. She reports that she is feeling nausea but is agreeable to brushing her teeth at the sink. Pt kept her eyes closed throughout session. OT attempted to see pt earlier this morning and pt asked OT to rub her feet. OT explained to pt that OT does not do this and asks pt if she would like to get washed up and she reports that she would prefer that nursing do it for her. Earlier this morning while pt was sitting in the chair she had her eyes open and was talkative. When OT returned later this morning pt wouldn't open her eyes for most of the session and took an increased amount of time for performance of functional mobility and ADLs. OBJECTIVE: PAIN: no c/o pain FUNCTIONAL MOBILITY -Performed with RADIOLOGY NURSE prior to OT session, please refer to note for details. BATHING: Pt denies reporting that she would prefer nursing to do this for her. DRESSING: (I) don and doff (B) socks with ideal technique and no vc required. GROOMING: Standing at sink with FWW and CGA pt stood in static standing with eyes closed. Then said, I need someone to walk me through this step by step. OT gave pt mod-max cues to perform teeth brushing which took increased performance time to perform. Pt needed cue to grab toothbrush, to open tooth paste, to brush teeth. EATING: Sitting in chair (I) with eating with good technique. Pt spilled her milk on her tray and said she could not wipe this up and needed (A). When OT handed pt the napkin, pt reported, go ahead and wipe it up and I can move the milk out of the way. Pt reports also that, it is nice to have consistent meals made for me everyday. OT asked pt if she wasn't eating at home and she notes that she just gets tired and cannot consistently make her meals. ASSESSMENT/PLAN: OT is very unclear as to where pt is functionally in performance to her ADLs. She has functional ROM and ability to perform ADLs (I). She does present with decreased functional activity tolerance in standing position. It is unclear as to why she required mod-max vc to perform her teeth brushing today as pt was able to eat her meal (I) requiring the same functional ROM with hand to mouth translation as it would for pt to brush her teeth. OT will continue to monitor pts (I). Plan is for OT to assess pt's bathing routine if pt is agreeable. Overall OT is unable to make a clear assessment at this time. TREATMENT CODES/TIME: [id number], 10 minutes (09:45) Teresa Lawson OTR/[facility]
[2019-03-16] MEDS: Normal Saline 1,000 ML 125 ML IV (11:24)
[2019-03-16] MEDS: Milk of Magnesia 30 ML CUP PO (12:15)
--- NOTE | 2019-03-16 12:33 | PT.INTREAT ---
Date of service: 03/16/19 Time of Service: 12:33 PT Notes Inpatient Physical Therapy Treatment Note [facility] Date: 03/16/2019 PRECAUTIONS: Fall SUBJECTIVE: Maki reports that she is not feeling well today. She reports nausea this morning and feelings of fatigue. OBJECTIVE: PAIN: No c/o pain BED MOBILITY/TRANSFERS Supine-sit: SBA with max cues Sit-supine: Min A with max cues Sit-stand: Min A Stand-sit: SBA GAIT Assistive Device: FWW Weight bearing: Full Assist: CGA Distance: 10' x2 Deviation: Parkinsonian gait, cueing for increased step length and to look up Static standing at sink x5 minutes with CGA and U UE support ASSESSMENT: Patient tolerated session with increased complaint of nausea and fatigue. Patient requires significant cueing and instruction for completing all daily functional tasks. Patient also requires significant encouragement to complete tasks without assist. Patient would benefit from continued gait and transfer training, as well as general conditioning for improved mobility and activity tolerance. PLAN: Continue with PT's POC TREATMENT CODE/TIME: 15 minutes; [id number]
--- NOTE | 2019-03-16 12:47 | DSE_ITS ---
Date of service: 03/16/19 Time of Service: 12:47 DS: Diagnosis Discharge Diagnosis (1) Nocturia: Status: Acute (2) Idiopathic Parkinson's disease: Status: Acute (3) Decreased activities of daily living (ADL): Status: Acute (4) Pre-syncope: Status: Acute (5) Malnutrition: Status: Acute Discharge Plan Disposition Patient Disposition: SNF (LEVEL 1) [facility] Condition: Improving Discharge Details Chief Complaint: GenMedical Clinical Impression: Adult failure to thrive, Generalized weakness Reason For Visit: FAILURE TO THRIVE, GENERALIZED WEAKNESS Admit Date/Time: 03/12/19 19:19 Admit Provider: Isra Jensen Attending Provider: Isra Jensen Primary Care Provider: Vy Dorado ED Provider: Edy Christie Hospital Course Hospital Course: Leslie Saenz is a very pleasant 68 year old female with a past medical history of a diagnosis of chronic Lyme disease (Dx by Dr. Lex Banda, [place] 07/2018, [place], [place]) on plaquenil and clarithromycin, and depression, who presented to the ED on 03/12/19 with reports of a progressive decline in her ability to care for herself over the last several months. She reported a shuffling gait, balance problems, weakness in her legs, and tremors as well as generalized weakness and decreased mobility. She also reported a 70 pound weight loss over the last year. In the ED, she had labs drawn which showed a CBC that was within normal limits. CMP was also essentially normal other than a mild elevation in her BUN of 31 with a normal creatinine of 0.83. Her troponin and LFTs were normal. Her total protein was normal at 7.2 and albumin was normal at 4.0. No imaging studies were performed. EKG showed normal sinus rhythm at a rate of 80 bpm with nonspecific T wave abnormality in aVL and V2. She was admitted to the med/surg floor for further evaluation of her progressive weakness and tremors and inability to care for herself. She went on to have further testing to include a brain MRI which was a limited exam but did not show evidence of intracranial mass, hemorrhage or infarct, note was made of findings suggesting small vessel ischemic disease. A CT chest abdomen and pelvis was obtained to rule out occult malignancy in the setting of significant weight loss, findings included cholelithiasis with pericholecystic fluid, gallbladder wall thickening, without evidence of an abdominal mass or metastatic disease. Chest CT showed no acute pulmonary process. Chest x-ray showed no acute pulmonary process. Abdominal ultrasound showed a 4.7 cm and mobile stone and possible right hydronephrosis. She was seen by Neurology and found to have an exam consistent with Parkinson's disease manifested by hypomimia, hypophonia, mild dysarthria, bilateral cogwheel rigidity, and diffuse bradykinesia in addition to mild generalized weakness. She was started on Sinemet at 25/100 mg 3 times daily. The following day, Dr. Moore reevaluated her and recommended increasing Sinemet to #2- 25/100 tablets 3 times per day. She was also started on Oxybutynin for nocturia. The following morning, she reported feeling dizzy and was noted to have hypotension as low as 72/35. She received 500cc NS bolus with improvement in her blood pressure to 125/65. The Oxybutynin was discontinued. Neurology recommended continuing the Sinemet at the current dose and follow blood pressures. She should be encouraged to take oral fluids. She has been working with PT, her mobility has increased. PT recommends ongoing gait and transfer training, as well as general conditioning for improved mobility and activity tolerance. Ms Saenz reports feeling less weak and that her mobility has improved. Also, of note, Ms Saenz was found to have cholecystitis and was seen by General surgery. Dr. Reddy believes that this may be a chronic problem. She recommends follow up as an outpatient in 1-2 weeks after discharge to schedule elective laparoscopic cholecystectomy. She also suggested that she keep a food diary to track how she is eating and see if there are food aversions/ triggers she has not been aware of. She has been scheduled to follow up with General Surgery next week (03/24/19). She is discharged to [facility] today for ongoing physical therapy prior to returning home. She will follow up with Neurology as scheduled. She will follow up with general surgery as scheduled. Recommend Lyme testing to determine the need to continue Lyme medication regimen. Home Meds and New Rx's Prescriptions: New carbidopa-levodopa 10-100 mg Tablet 2 tab PO TID@0800,1200,1700 Qty: 0 RF: 0 melatonin 3 mg Tablet Extended Release 9 mg PO HS Qty: 0 RF: 0 Continued clarithromycin 500 mg Tablet 250 mg PO TID RF: 0 nystatin 500,000 unit Tablet 500,000 unit PO QID RF: 0 bupropion HCl 100 mg Tablet 100 mg PO BID RF: 0 hydroxychloroquine 200 mg Tablet 100 mg PO TID RF: 0 vitamin E 400 unit Capsule 400 unit PO DAILY RF: 0 cholecalciferol (vitamin D3) [Vitamin D3] 1,000 unit Capsule 1,000 unit PO DAILY RF: 0 Discharge Instructions Instructions: Parkinson Disease (DC) Stand Alone Forms: Nursing Discharge Form Referrals: Maile Ibarra MD [ [facility] STAFF PHYSICIAN] - 03/24/19 10:30 am Elsie Moore MD [ [facility] STAFF PHYSICIAN] - 05/04/19 10:00 am Activity:: Activity as Tolerated Equipment/Supplies:: No Equipment Needed Diet:: low fat diet Discharge Orders Discharge Orders: Discharge Order (Routine); Ordered 03/16/19 Ordered By: Stephania Mcnamara Exam Narrative Exam Narrative: General: Elderly female, sitting up in the chair, appears older than stated age. Pleasant and cooperative, answers questions appropriately. Appears to be in no acute distress. Flat affect. soft voice. HEENT: Normocephalic, atraumatic, pupils equal and round, extraocular movements intact, lips slightly dry. Neck: Supple, no JVD. Respiratory: Respirations even and unlabored, lung sounds clear to auscultation throughout. Cardiovascular: Heart is regular rate and rhythm, no murmur appreciated. GI: Abdomen flat, soft, nontender on palpation, nondistended with normal active bowel sounds. Extremities: No significant tremors, no clubbing, cyanosis or edema. DS: Data Vitals/I&O Vitals and I&O: Vital Signs Temperature 35.6 C L 03/16/19 07:30 Temperature Source Tympanic 03/16/19 07:30 Pulse 71 03/16/19 07:30 Pulse Rhythm Regular 03/16/19 07:30 Respiratory Rate 15 03/16/19 07:30 Respiratory Effort Non-Labored 03/16/19 09:21 Respiratory Depth Normal 03/15/19 22:10 Respiratory Pattern Normal 03/15/19 22:10 Blood Pressure 72/35 L 03/16/19 09:21 Blood Pressure Position Sitting 03/12/19 17:06 Pulse Oximetry 99 03/16/19 07:30 Oxygen Delivery Method Room Air 03/16/19 09:21 Oxygen Flow Rate 0 03/16/19 09:21 Pain Level 0 03/16/19 09:10 Comment 03/16/19 09:10 Intake & Output 03/15/19 03/16/19 03/16/19 23:59 11:59 23:59 Intake Total 1615.5 / 3075.5 500 / 500 Output Total 200 / 1550 600 / 600 Balance 1415.5 / 1525.5 -100 / -100 Weight 50.2 kg Intake: IV 1615.5 / 2615.5 Oral 500 / 500 Output: Urine 200 / 1550 600 / 600 Other: Urine Color Yellow Pale Yellow Urine Appearance Clear Clear Urine Odor Normal Normal Voiding Methods Bedside Commode Bedside Commode Completed studies during hospitalization [Text1]: 03/13/19: CT CHEST, ABDOMEN AND PELVIS: CT scan of the chest, abdomen and pelvis was performed following the uneventful administration of intravenous and oral contrast material. Comparison examination is 10/03/16 CT ABDOMEN AND PELVIS: The liver is normal in size. No suspicious hepatic mass is seen. The portal, superior mesenteric and splenic veins are patent. There are stones seen within the gallbladder. The largest measures 1.7 cm. There is hyperemia of the gallbladder wall with mild thickening. Pericholecystic fluid is present. There is no biliary ductal dilatation. The pancreas and peripancreatic soft tissues are unremarkable. The spleen is unremarkable. The adrenal glands are unremarkable. The kidneys show normal and symmetric enhancement. No evidence of a solid renal mass is present. There is a nonobstructing 0.6 cm stone in the mid pole of the right kidney. The urinary bladder is unremarkable. The reproductive organs are unremarkable as visualized. There is atherosclerosis of the abdominal aorta but no aneurysmal dilatation present. No significant abdominal or pelvic adenopathy, ascities or pneumoperitoneum is seen. There is stool seen throughout the colon suggesting constipation. No evidence of bowel obstruction or bowel inflammatory infectious process is appreciated. No findings are present in the right lower quadrant to suggest an acute appendicitis. There are degenerative changes seen in the spine. No aggressive osseous lesions are appreciated. IMPRESSION: 1. Cholelithiasis with pericholecystic fluid , gallbladder wall thickening. The findings raise the question of acute cholecystitis. Sonographic correlation may be considered. 2. No evidence of an abdominal mass or metastatic disease ABDOMINAL ULTRASOUND: Routine examination was performed. The liver measures 13.5 cm in length. No mass is seen sonographically. There are multiple stones seen within the gallbladder, the largest measures 4.7 x 2.6 x 2.7 cm and is immobile. There is gallbladder wall thickening up to 6 mm. There is mild pericholecystic fluid. The common duct is within normal limits in size. The visualized pancreas and spleen are unremarkable. The aorta and IVC are unremarkable. There is antegrade flow in the portal vein. The kidneys are unremarkable save for a 2 mm echogenic focus in the superior pole of the right kidney, which may represent a stone. There is mild dilatation of the collecting system, which may represent mild hydronephrosis. IMPRESSION: 1. Findings in the gallbladder including a 4.7 cm immobile stone. The findings are suggestive of acute cholecystitis. 2. Findings of possible right hydronephrosis. 03/14/19: MRI BRAIN: Pre and post op examinations were performed. FINDINGS: There is patient motion artifact which persists on several images despite repeated attempts. The ventricles and sulci are consistent with the patient's age. There are scattered areas of T2 hyperintensity in the white matter on the T2 and FLAIR images likely reflecting small vessel ischemic disease. The diffusion weighted images show no evidence of restricted diffusion. Susceptibility images show no evidence of intracranial hemorrhage. No acute midline shift or mass effect is identified. The ventricles are intact. The basilar cisterns are patent. There does appear to be a normal flow void in the [place] of Al. The visualized paranasal sinuses are clear. The orbits and retro-orbital soft tissues are unremarkable. Following contrast administration no enhancing lesions are identified. IMPRESSION: 1. Exam limited by significant patient motion artifact. 2. No evidence of an intracranial mass, hemorrhage or infarct. 3. T2 hyperintense signal as described likely reflecting small vessel ischemic disease. CHEST X-RAY: AP and lateral. Comparison 10/03/16 Heart size and pulmonary vasculature are within normal limits. Lungs ae hyperinflated suggesting underlying COPD. No focal consolidating infiltrates, effusions or pneumothoraces are identified. Age appropriate degenerative changes are seen in the spine. IMPRESSION: No acute pulmonary process. CT CHEST: The visualized thyroid gland is unremarkable. The thoracic aorta is of normal caliber. Heart size is within normal limits. No significant pericardial effusion is seen. The central pulmonary arteries are unremarkable. No effusion or pneumothorax is identified. No significant thoracic adenopathy is seen. No infiltrates are present in the lungs. The tracheobronchial tree is unremarkable. Degenerative changes are seen in the spine. IMPRESSION: No acute pulmonary process. [facility] Medical History Depression Gallstones Osteopenia Surgical History Cervical Conization/LEEP Colonoscopy - IV Sedation EGD - MAC (12/31/16) L wrist tendon repair Tonsillectomy and adenoidectomy wrist ORIF left Family History Mother Dementia Father No problems noted. 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
[2019-03-16] MEDS: Enoxaparin 40 MG/0.4 ML SYR SC (13:03)
--- NOTE | 2019-03-16 13:32 | NUR.NOTE ---
Report given to nurse at [facility] - no further questions or concerns from the nurse - hypotensive episode this am and orthostatic vital signs reported and discussed. lack of po fluids discussed Nursing Note:
--- NOTE | 2019-03-16 17:23 | CMDISCH_ITS ---
LACE Index Scoring Tool - Questions: Length of Stay (in days): 3 Acuity (Admit via E.D.?): Yes E.D. Visits: 1 - Answers: Total Score: 7 Risk of Readmission: Low Risk Care Management Discharge Reason for Hospitalization: Failure to Thrive, Generalized weakness Discharge Plan: Leslie will transfer to [facility] once medically cleared. Anticipate cholecystectomy follow up as outpatient as well as Neurology follow up with Dr. Haines. Leslie will transport via private vehicle with her friend, Diamond. Patient/Family Education Needs: Review discharge instructions, discuss Ask Me Three. Services Needed at Discharge: [facility] Facility ([facility]. )
--- NOTE | 2019-03-17 09:14 | OTDS_ITS ---
Date of service: 03/17/19 Time of Service: 09:14 Occupational Therapy Notes Occupational Therapy Inpatient Discharge Summary Date: 03/17/19 Dates of Service: 03/15/19-03/16/19 Referring Doctor:Isra Jensen MD OT Orders: evaluate and treat for decreased ADL performance Precautions: Fall. Standard Patient Profile/Admitting Diagnosis: Pt is a 68 year old female who has had a lost over 70 pounds and has gotten progressively weaker. She reports that she is unable to care for herself at home and feels that she is getting significant;y weaker in her (I) in her ADL performance. PMHX: Medical History Depression Gallstones Osteopenia Surgical History Cervical Conization/LEEP Colonoscopy - IV Sedation EGD - MAC (12/31/16) L wrist tendon repair Tonsillectomy and adenoidectomy wrist ORIF left Social History/Home Situation: Lives alone in her home up until this point. Is very active in the [facility] [employer] historically. She reports that her 80 year old landlord takes care of her when she is around. She notes that she has significantly declined in ADLs. She has a tub/shower and reports that sometimes she lays in the tub but has difficulty getting out but her balance is so poor th at she is scared to stand. OT recommends a shower bench for pts safety. She has Meals on Wheels and relies on friends for driving. She reports that she can drive but does not feel safe due to her decreased reaction time. Equipment Owned/DME: Wheelchair for when she goes out with her friends. Subjective: NT THIS DOCUMENT SERVES A SUMMARY OF CARE, NO SKILLED OT SERVICES PROVIDED FOR THIS DOCUMENTATION OBJECTIVE: ROM: RUE WFL L UE WFL STRENGTH: RUE 4+/5 throughout globally LUE 4+/5 throughout globally FUNCTIONAL MOBILITY/ADLS: Sit-Stand CGA Stand-sit CGA BATHING Pt denies multiple times and would wanted nursing to do this. DRESSING Pt was able to (I) don and doff her (B) socks in the sitting position with ideal technique GROOMING Sitting in chair (I) brush her hair, CGA and FWW standing at sink for teeth and step by step vc throughout TOILETING NT EATING (I) sitting in chair BALANCE: Static sitting Good Dynamic Sitting Good Static Standing Fair ASSESSMENT: Patient is a 68-year-old female referred to occupational therapy services with diagnosis of progressive weakness and decreased (I) in her ADL routines. Patient presents with clinical signs and symptoms consistent with dx, as demonstrated by the following impairment level findings/ functional limitations: Decreased functional activity tolerance, decreased safety awareness, decreased functional dynamic movements, tremor in (B) UE, decreased functional mobility. Pt was seen for 2 skilled OT sessions. OT was unable to determine her functional status as she went up and down in her performance of ADLs. She was able to perform them earlier during one session and then an hour later required step by step vc. Pt would benefit from going to SNF which she was transitioned to on 03/16/19. Pt was unable to meet her goals and was not willing to perform ADLs during OT sessions. GOALS-not met 1. Transfers (S), FWW 2. Dressing (I) UE/LE 3. Bathing (I) UE/LE 4. Toileting (I) on toilet 5. Eating (I) PLAN OF CARE/TREATMENT PLAN: Pt was discharged on 03/16/19 to [facility] DISCHARGE RECOMMENDATIONS Short term stay at SNF vs home with HH OT OT recommends a shower bench to increase pts safety in bathroom for transfers and decreased functional activity tolerance. TREATMENT TIME/MINUTES/CODES n/A Teresa Lawson OTR/L [facility]
--- NOTE | 2019-03-17 09:34 | PT.INDS ---
Date of service: 03/17/19 Time of Service: 09:35 PT Notes Inpatient Physical Therapy Discharge Summary Dates: 03/17/2019 Dates of Service: 03/13/2019 through 03/16/2019 This is a clinical summary of care provided on the duration of dates listed above. No charge was made in the completion of this documentation. Referring Doctor: Isra Jensen MD PT Orders: PT CONSULT: Evaluate and Treat for decreased ADL performance Precautions: Fall, standard Patient Profile/Admitting Diagnosis: Orders received for this 68 year old female who has had an unfortunate last year. She was about 170 pounds but yet very active and caring for herself with out any compromise. Over the course of this year she has lost over 70pounds and has gotten progressively weaker. She is to the point now where she has been unable to care for herself including making food for the last few weeks. She states she is now unstable with even basic activities such as getting out of bed, dressing, and bathing. Apparently she has recently been diagnosed with progressive Lyme disease. PMHX: Medical History Depresion Gallstones Osteopenia Surgical History Cervical Conization/LEEP Colonoscopy - IV Sedation EGD - MAC (12/31/16) L wrist tendon repair Tonsillectomy and adenoidectomy wrist ORIF left Social History/Home Situation: Lives alone in her home up until this point. Is very active in the [facility] historically Equipment Owned/DME: Nothing Subjective: NT Objective: NT Mental Status: NT Pain: NT ROM: Right Upper Extremity: WFL Left Upper Extremity: WFL Right Lower Extremity: WFL Left Lower Extremity: WFL Strength: Right Upper Extremity: Globally 4+/5 Left Upper Extremity: Globally 4+/5 Right Lower Extremity: Hip flexion 4/5, quads 4+/5, HS 4/5, DF 4/5, PF 4/5 Left Lower Extremity: Hip flexion 4/5, quads 4+/5, HS 4/5, DF 4/5, PF 4/5 Stand pivot transfer to [facility] is Min A with 2WW Sit-stand: min A with 2WW Stand-sit: min A with 2WW Gait: Patient was able to demonstrate up to 10 feet for ambulation with Min A and 2WW Balance: Static Sitting: Good Dynamic Sitting: Good Static Standing: Fair Dynamic Standing: Poor ASSESSMENT: Patient is a 68 year old female with hx of good physical health Admitted with progressive weakness and loss of ADLs Patient presents with the following impairment level findings: strength deficits globally, assistance of min needed for ambulation and transfers, ambulation intolerance Pt will benefit from skilled therapy intervention in order to remedy their functional limitations and restore patient to a more appropriate and stable functional level. Impairments are contributing to the following functional limitations: AMPAC score 57.7% Goals: Goals X1 week 1. Supine-Sit CGA NOT MET 2. Sit-Supine CGA NOT MET 3. Sit-Stand CGA NOT MET 4. Stand-Sit CGA NOT MET 5. Bed-Chair CGA NOT MET 6. Gait up to 200 feet with least restrictive assistive device and CGA NOT MET 7: Independent in Home program NOT MET DISCHARGE RECOMMENDATIONS: Patient will benefit from snf facility placement in order to progress mobility level, strength, and balance in preparation for a safe discharge to home. TREATMENT CODE/TIME: MD Thank you very much for this referral. Bebe Gonsales PT, DPT, CLT [facility]
== END 2019-03-16 14:23 | disposition skilled nursing facility (03) | DRG 57 ==
LOC: ER 19:39 → MS 03-13 14:31
PROVIDERS: Nurse Practitioner Family; Surgery; Admitting Provider Internal Medicine; Emergency Provider Student in an Organized Health Care Education/Training Program; PCP Internal Medicine; Visit Provider Internal Medicine
DX: G20 Parkinson's disease (principal); E46 Unspecified protein-calorie malnutrition; A69.20 Lyme disease, unspecified; K80.00 Calculus of gallbladder with acute cholecystitis without obstruction; R62.7 Adult failure to thrive; R53.1 Weakness; R35.1 Nocturia; Z73.89 Other problems related to life management difficulty; R55 Syncope and collapse; F32.9 Major depressive disorder, single episode, unspecified; R26.2 Difficulty in walking, not elsewhere classified; R44.1 Visual hallucinations; T44.3X5A Adverse effect of other parasympatholytics [anticholinergics and antimuscarinics] and spasmolytics, initial encounter
CPT/HCPCS: 36415; 70553; 74177; 80048; 80053; 80061; 83690; 83721; 93005; 96360; 96361; 97110; 97162; 97166; 97530; 97535; 99220; 99222; 99223; 99232; 99233; 99239; 99252; 99285; J1650; 71046; 71260; 76700; 81003; 81015; 82607; 82746; 83735; 84134; 84443; 84484; 85025; 93010; 99226; 99284; J2060; J3490; Q9967

== ENCOUNTER → 2019-03-14 09:10 | Outpatient (BNVA) | payer MEDICARE, SELFPAY | PROVIDERS: PCP Internal Medicine; Visit Provider Psychiatry & Neurology Neurology | DX: R69 Illness, unspecified (principal) ==

== ENCOUNTER → 2019-03-24 14:16 | Outpatient (BNVA) | payer MEDICARE, OTHER, SELFPAY | PROVIDERS: PCP Internal Medicine; Referring Provider Internal Medicine; Visit Provider Surgery | DX: K82.9 Disease of gallbladder, unspecified (principal); G20 Parkinson's disease | CPT/HCPCS: 99214 ==

== ENCOUNTER 2019-04-05 06:55 | Day surgery (SDC) | payer MEDICARE, OTHER, SELFPAY ==
[2019-04-05] VITALS (11 sets, daily range): BP systolic 91–145; BP diastolic 49–75; PULSE 66–84; RESP 12–20; TEMP 36.2–36.6; O2SAT 100
[2019-04-05] MEDS: Lactated Ringers 1,000 ML 80 ML IV ×2 (07:35→09:35)
[2019-04-05] MEDS: CLINDAMYCIN 900 MG/50 ML BAG 50 MG IVPB (08:50)
[2019-04-05] MEDS: Bupivacaine 0.5% Pres-Free 30 ML VIAL (08:58)
--- NOTE | 2019-04-05 09:42 | GB_PTH ---
PATIENT: Leslie Saenz LOC: [facility] U#:[id number] AGE/SX: 68/F ROOM: RE04/05/[address]: Maile Ibarra MD : 1950 BED: DIS: 04/05/2019 SPEC #: [id number] RECD: 04/05/19 12:33 STATUS: JUAN REQ #: [id number] CHARLES: 04/05/19 09:[address]: Maile Ibarra DEPT: Surgical Specimen RECD BY: Dottie Rhodes ENTERED: 04/05/19 12:34 SP TYPE: GB OTHR DR: Vy Dorado MD Tissues: 1 - GALLBLADDER Procedures: GROSS AND MICRO LEVEL 3 Comments: [id number]
--- NOTE | 2019-04-05 10:43 | W.PM.DSUDISC ---
Discharge Plan Disposition Patient Disposition: [facility] (LEVEL 2) [facility] Condition: Good Discharge Details Reason For Visit: Laparoscopic cholecystectomy Attending Provider: Maile Ibarra Primary Care Provider: Vy Dorado Home Meds and New Rx's Prescriptions: Continued clarithromycin 500 mg Tablet 250 mg PO TID RF: 0 nystatin 500,000 unit Tablet 500,000 unit PO QID RF: 0 bupropion HCl 100 mg Tablet 100 mg PO BID RF: 0 hydroxychloroquine 200 mg Tablet 100 mg PO TID RF: 0 vitamin E 400 unit Capsule 400 unit PO DAILY RF: 0 cholecalciferol (vitamin D3) [Vitamin D3] 1,000 unit Capsule 1,000 unit PO DAILY RF: 0 carbidopa-levodopa 10-100 mg Tablet 2 tab PO TID@0800,1200,1700 Qty: 0 RF: 0 melatonin 3 mg Tablet Extended Release 9 mg PO HS Qty: 0 RF: 0 Discharge Instructions Additional Instructions: May use ibuprofen and Tylenol as needed for pain Call for any concerns including increased pain, vomiting, fever. Please keep an eye on the upper midline incision for evidence of infection. Stand Alone Forms: Anes.Nerve Block Instructions, DSU Post op Instructions, Shikha Veronica (DSU) Referrals: Maile Ibarra MD [ [facility] STAFF PHYSICIAN] - (10-14 days) Activity:: Do not lift more than 15 pounds for 2 weeks Shower/Bathe:: 24 hours Diet:: Low fat for two weeks Discharge Orders Discharge Orders: Discharge Order (Routine); Ordered 04/05/19 Ordered By: Maile Ibarra DS: Diagnosis Discharge Diagnosis (1) Chronic cholecystitis: Status: Acute (2) S/P laparoscopic cholecystectomy:
--- NOTE | 2019-04-06 12:05 | ROE_ITS ---
APRIL 05, 2019 PREOPERATIVE DIAGNOSIS: Biliary colic. POSTOPERATIVE DIAGNOSIS: Chronic cholecystitis. OPERATION: Laparoscopic cholecystectomy. ANESTHESIA: Local, general and rectus sheath/ TAP blocks. INDICATIONS: This is a 68-year-old woman who experienced an approximately 70 lbs. weight loss this y ear. She was also recently diagnosed with Parkinson's disease. During evaluation for weight loss s he had a CT scan of the abdomen and pelvis which demonstrated gallbladder wall thickening. She subse quently had an ultrasound that confirmed a thickened gallbladder wall and a large gallstone. The pat ient's main symptom at this point is nausea. PROCEDURE: She was placed supine on the operating table and after the induction of general anestheti c had blocks placed by Anesthesia. The abdomen was then prepped and draped sterilely. She is noted to be very thin. A 5 millimeter incision was made to the left of and below the umbilicus after injecting local anesthe candelaria. The abdomen was entered under direct visualization and a CO2 pneumoperitoneum begun. She was p laced in the reverse Trendelenburg position. The epigastric port and two lateral ports were placed a fter injecting local anesthesia under direct visualization. The gallbladder was not acutely inflamed but did have adhesions of primarily the omentum and duodenum . The fundus was lifted and the omentum dissected free with cautery. The filmy adhesions of duodenu m were carefully taken down. This was done with cautery well away from the bowel. The peritoneum ov erlying the triangle of Calot was then dissected free with hook cautery to expose the cystic duct and artery. The common bile duct was visualized and voided. The cystis duct was not dilated and, as me ntioned, was visualized going directly onto the gallbladder. This was clipped twice distally, once p roximally and divided. The artery was clipped twice proximally, once distally and divided. The gall bladder was then dissected off of the liver bed with hook cautery. There was an additional branch of the vessel that was clipped. Again, the tissue was not acutely inflamed but the peritoneum of the gallbladder was thickened, consi stent with chronic cholecystitis. The gallbladder was placed in an endo catch and brought out throug h the epigastric incision. It became evident that a very large gallstone was present. I extended th e incision and still had some difficulty getting the gallstone to pass through the incision. With st opal traction unfortunately the bag and the gallbladder ruptured, spilling some bile in the incision although not intra-abdominally. I was ultimately able to remove the gallbladder and one large stone. There was not spillage of stones. The fascia was closed with two interrupted #0 Vicryl figure of eight sutures and then the subcutaneou s tissue, which was quite minimal, was irrigated. I then resumed pneumoperitoneum and inspected the operative site which looked good. There was no bleeding or bile leak. The CO2 was released and the incisions were all closed with a 4-0 Monocryl subcuticular stitch. She tolerated the procedure well and was stable for recovery.
[2019-04-07] MEDS: Bupivacaine LIPOSOME/PF 133 MG/10 ML VIAL IJ (08:40)
[2019-04-07] MEDS: Bupivacaine 0.5% Pres-Free 30 ML VIAL (08:40)
== END 2019-04-05 13:47 | disposition intermediate care facility (04) ==
PROVIDERS: PCP Internal Medicine; Visit Provider Surgery
PROC: 0FT44ZZ Resection of Gallbladder, Percutaneous Endoscopic Approach (ICD-10-PCS; CPT 47562; principal; 2019-04-05 08:15)
DX: K80.10 Calculus of gallbladder with chronic cholecystitis without obstruction (principal); K82.8 Other specified diseases of gallbladder; G20 Parkinson's disease; G89.18 Other acute postprocedural pain
CPT/HCPCS: 47562; 88304; J0131; J1100; J1885; J2250; J2405

== ENCOUNTER → 2019-04-18 10:41 | Outpatient (BNVA) | payer MEDICARE, OTHER, SELFPAY | PROVIDERS: PCP Internal Medicine; Referring Provider Internal Medicine; Visit Provider Surgery | DX: K80.44 Calculus of bile duct with chronic cholecystitis without obstruction (principal); Z98.890 Other specified postprocedural states ==

== ENCOUNTER → 2019-05-04 09:39 | Outpatient (BNVA) | payer MEDICARE, OTHER, SELFPAY | PROVIDERS: PCP Internal Medicine; Visit Provider Psychiatry & Neurology Neurology | DX: G20 Parkinson's disease (principal); I95.1 Orthostatic hypotension; K59.00 Constipation, unspecified | CPT/HCPCS: 99215 ==

== ENCOUNTER → 2019-06-29 12:16 | Outpatient (BNVA) | payer MEDICARE, OTHER, SELFPAY | PROVIDERS: PCP Internal Medicine; Referring Provider Internal Medicine; Visit Provider Psychiatry & Neurology Neurology | DX: G20 Parkinson's disease (principal); K59.00 Constipation, unspecified; I95.1 Orthostatic hypotension | CPT/HCPCS: 99214 ==

== ENCOUNTER → 2019-08-02 10:49 | Outpatient (BNVA) | payer MEDICARE, OTHER, SELFPAY | PROVIDERS: PCP Internal Medicine; Referring Provider Internal Medicine; Visit Provider Nurse Practitioner Gerontology | DX: N32.81 Overactive bladder (principal); G20 Parkinson's disease | CPT/HCPCS: 99203; 99214 ==

== ENCOUNTER 2019-08-15 00:54 | Outpatient (CLI) | payer MEDICARE, OTHER, SELFPAY ==
--- NOTE | 2019-08-15 15:45 | DI.MAMMO_ITS ---
EXAM: MG MAMMO SCREENING CLINICAL HISTORY: screening Z12.39 TECHNIQUE: Bilateral full field digital CC and MLO mammographic images were obtained with 3D tomosyn thesis and utilizing computer aided detection (CAD). COMPARISON: Available for comparison. FINDINGS: Masses/Architectural Distortion: None seen. Microcalcifications: No suspicious pleomorphic-type are seen. Skin Thickening/Nipple Retraction: None. IMPRESSION: 1. No significant interval change with no specific features of malignancy noted. 2. Unless there is more urgent need, screening mammography is recommended, as per [place] [employer] guidelines. ACR BI-RAD Category- 1 Negative Breast Density - Category B - Scattered areas of fibroglandular density A negative radiographic report should not delay biopsy if a dominant or clinically suspicious mass is present. Up to ten percent of cancers are not identified on mammography. A negative report may reinforce clinical impression. Adenosis and dense breasts may obscure an underlying neoplasm. False positive reports average 6 to 10%. Patient will receive a letter notifying them of these results.
== END 2019-08-15 01:14 ==
PROVIDERS: PCP Internal Medicine; Visit Provider Internal Medicine
DX: Z12.31 Encounter for screening mammogram for malignant neoplasm of breast (principal)
CPT/HCPCS: 77063; 77067

== ENCOUNTER → 2019-09-28 12:22 | Outpatient (BNVA) | payer MEDICARE, OTHER, SELFPAY | PROVIDERS: PCP Internal Medicine; Referring Provider Internal Medicine; Visit Provider Psychiatry & Neurology Neurology | DX: G20 Parkinson's disease (principal); K59.00 Constipation, unspecified; N32.81 Overactive bladder | CPT/HCPCS: 99214 ==

== ENCOUNTER → 2019-11-01 15:39 | Outpatient (BNVA) | payer MEDICARE, OTHER, SELFPAY | PROVIDERS: PCP Internal Medicine; Referring Provider Internal Medicine; Visit Provider Nurse Practitioner Gerontology | DX: N32.81 Overactive bladder (principal) | CPT/HCPCS: 99213 ==

== ENCOUNTER → 2019-11-24 13:53 | Outpatient (BNVA) | payer MEDICARE, OTHER, SELFPAY | PROVIDERS: PCP Internal Medicine; Referring Provider Internal Medicine; Visit Provider Nurse Practitioner Gerontology | DX: N32.81 Overactive bladder (principal); K59.00 Constipation, unspecified | CPT/HCPCS: 99213; 99442 ==

== ENCOUNTER → 2019-12-28 12:46 | Outpatient (BNVA) | payer MEDICARE, OTHER, SELFPAY | PROVIDERS: PCP Internal Medicine; Referring Provider Internal Medicine; Visit Provider Psychiatry & Neurology Neurology | DX: G20 Parkinson's disease (principal); K59.00 Constipation, unspecified; N32.81 Overactive bladder; R11.0 Nausea | CPT/HCPCS: 99214 ==

== ENCOUNTER → 2020-02-22 10:37 | Outpatient (BNVA) | payer MEDICARE, OTHER, SELFPAY | PROVIDERS: PCP Internal Medicine; Referring Provider Internal Medicine; Visit Provider Nurse Practitioner Gerontology | DX: N32.81 Overactive bladder (principal) | CPT/HCPCS: 99213 ==

== ENCOUNTER → 2020-02-29 10:09 | Outpatient (BNVA) | payer MEDICARE, OTHER, SELFPAY | PROVIDERS: PCP Internal Medicine; Referring Provider Internal Medicine; Visit Provider Psychiatry & Neurology Neurology | DX: G20 Parkinson's disease (principal); K59.00 Constipation, unspecified; N32.81 Overactive bladder; R11.0 Nausea | CPT/HCPCS: 99214 ==

== ENCOUNTER 2020-05-05 03:57 | Emergency (ER) | payer MEDICARE, OTHER, SELFPAY ==
[2020-05-05 03:59] VITALS: BP 110/59; PULSE 92; RESP 14; TEMP 36.6; O2SAT 97
--- NOTE | 2020-05-05 03:59 | W.ED.GENAD ---
Discharge Plan Disposition Patient Disposition: HOME Condition: Good Discharge Details Clinical Impression: Cognitive complaints Primary Care Provider: Vy Dorado ED Provider: Alok Ochoa Dufur Meds and New Rx's Prescriptions: Continued polyethylene glycol 3350 [Miralax] 17 gram/dose powder 17 gm PO BID PRN (Reason: constipation) Qty: 850 RF: 11 bupropion HCl [Wellbutrin XL] 300 mg tablet extended release 24 hr 300 mg PO QAM Qty: 90 RF: 3 melatonin 3 mg capsule 3 mg PO HS PRNRF: 0 carbidopa-levodopa 25-100 mg tablet 2 tab PO TID Qty: 540 RF: 3 Myrbetriq 25 mg tablet extended release 24 hr 25 mg PO DAILY Qty: 90 RF: 3 vitamin E 400 unit Capsule 400 unit PO DAILY RF: 0 cholecalciferol (vitamin D3) [Vitamin D3] 1,000 unit Capsule 1,000 unit PO DAILY RF: 0 Discharge Instructions Additional Instructions: Your work-up this morning in the ED was unrevealing with unremarkable imaging and laboratory studies. There is a urine culture pending. You should follow-up with primary care as well as with neurology. Return to ED for headache, fever, neurological changes. Referrals: Vy Dorado MD [Primary Care Provider] - Elsie Moore MD [ [facility] STAFF PHYSICIAN] - Medical Decision Making Patient presenting with complaint of confusion and dizziness but vague in our ability to provide history. Unclear on timing. Unclear on whether vertigo or lightheadedness. Does state that she has had the dizziness for a while but it seems worse. She is quite alert and she is oriented x3. However she definitely appears slowed and speech and mentation. Reports being forgetful. Her last visit with neurology this summer reported a baseline memory testing which was fine. Will initiate a basic work-up to include head CT, infectious work-up, metabolic work-up. Patient's work-up here in the emergency department is unrevealing. CT of head is unremarkable. Chest x-ray without significant change from previous. Laboratory studies essentially normal. A little bump in kidney function but nothing that would cause her symptoms. Urinalysis not suggestive of UTI though culture pending. TSH normal. Again her complaints are vague and timing not clear. She did ask me if I was going to do cognitive testing. That would be something carried out by neurology whom she says she does have an appointment with. Patient will need follow-up with primary care and neurology on outpatient basis. Medical Records Medical records reviewed: Yes I reviewed the patient's medical records. Lab Data Lab results reviewed: Yes I reviewed the patient's lab results. ECG Data Attestation: I personally reviewed and interpreted this ECG (s) as follows: Interpretation: see EKG HPI General Mode of arrival: EMS. Date/Time Provider Initiated Documentation: 05/05/20 03:59. Limitations to Documentation: no limitations. Information obtained by: patient, RN notes reviewed and old records reviewed. HPI Narrative: Patient arrives with complaint of confusion and dizziness. Patient is quite vague on symptomatology. She is also unclear on timing. Reports that she has appointment to see her neurologist on Thursday for this. However reports that it just started this week. She is unable to describe the dizziness. She does report nausea and lack of appetite but this sounds like an ongoing issue. She has history of Parkinson's and keeps referencing that being the reason for her visit. However when questioned she goes back to feeling confused and forgetful. She denies headache. She denies fever or cough. She denies chest pain or abdominal pain. There is no vomiting or diarrhea. She denies urinary symptoms. She is fairly clear on who her doctors are, where she is, even the day. She does however seem vague and slow on her responses. Related Data Home Medications Medication Instructions Recorded Confirmed cholecalciferol (vitamin D3) 1,000 unit PO DAILY 03/12/19 05/05/20 [Vitamin D3] vitamin E 400 unit PO DAILY 03/12/19 05/05/20 bupropion HCl 300 mg 24 hr tablet, 300 mg PO QAM #90 tab 09/20/19 05/05/20 extended release mirabegron 25 mg tablet,extended 25 mg PO DAILY #90 tab 11/24/19 05/05/20 release 24 hr carbidopa 25 mg-levodopa 100 mg 2 tab PO TID #540 tab 12/28/19 05/05/20 tablet melatonin 3 mg capsule 3 mg PO HS PRN 12/28/19 05/05/20 polyethylene glycol 3350 17 17 gm PO BID PRN #850 gm 01/18/20 05/05/20 gram/dose oral powder Previous Rx's Medication Instructions Recorded bupropion HCl 300 mg 24 hr tablet, 300 mg PO QAM #90 tab 09/20/19 extended release mirabegron 25 mg tablet,extended 25 mg PO DAILY #90 tab 11/24/19 release 24 hr carbidopa 25 mg-levodopa 100 mg 2 tab PO TID #540 tab 12/28/19 tablet polyethylene glycol 3350 17 17 gm PO BID PRN #850 gm 01/18/20 gram/dose oral powder Allergies Allergy/AdvReac Type Severity Reaction Status Date / Time Penicillins Allergy Unknown Verified 05/05/20 04:03 General LUIS: 4 Review of Systems Constitutional Constitutional: Denies chills, Denies fever(s), Denies headache(s) and Reports poor appetite ENT Ears, Nose, Mouth, and Throat: Reports dizziness and Denies headache(s) Cardiovascular Cardiovascular: Denies chest pain, Denies syncope and Denies dyspnea Respiratory Respiratory: Denies cough and Denies dyspnea Gastrointestinal Gastrointestinal: Denies abdominal pain and Denies vomiting Genitourinary Genitourinary: Denies dysuria Musculoskeletal Musculoskeletal: Denies back pain and Denies numbness Integumentary/Breasts Skin/Breast: Denies rash Neurologic Neurologic: Reports confusion, Reports dizziness, Denies syncope, Denies headache(s), Denies localized weakness and Denies numbness Psychiatric Psychiatric: Reports confusion PFSH Medical History Depression Idiopathic Parkinson's disease Lyme disease negative tests but tests aren't always positive per Dr. Lex Banda Osteopenia Surgical History Cervical Conization/LEEP Colonoscopy - IV Sedation 2014- EGD - MAC (12/31/16) 12/31/2016 Pathology: neg H.Pylori, fundic gland polyp, reactive (chemical) gastropathy L wrist tendon repair S/P laparoscopic cholecystectomy 04/05/19, Dr Maile Ibarra, [facility] Tonsillectomy and adenoidectomy wrist ORIF left Family History Mother Dementia Father Heart disease Sister Crohns disease Social History Smoking/Tobacco Use Status: Former Tobacco Use Quit Date: 02/22/80 Pack-years: 5 Alcohol Intake: former Drug use: Never Substance use type: does not use Household members: none Housing: apartment Communication Needs: Corrective Lenses 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; 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 How often do you talk on the phone with friends or family?: three or more times per week How often do you get together with friends or relatives?: three or more times per week Panel score (0-1 are the most socially isolated patients): 1 What type of physical activity do you participate in: none and other Details: Has had PT and OT eval Seatbelt use: always Drive intox or ride w/intox 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 Const: Quite thin elderly female in NAD. HEENT: NC/AT. Normal facial exam. Eyes: Normal conjunctiva and sclera. PERRL and EOMI Neck: Supple. Trachea midline. Lungs: Normal respiratory effort. Lungs are clear. Cor: RRR without murmur/gallop. Good radial pulses. GI: Soft. NT/ND. No guarding or rebound. Neuro: A+O x 3. Slow speech, mentation appears normal but slowed. Cranial nerves II - XII grossly intact. No gross motor or sensory deficit. Ext: No C/C/E. Skin: Warm and dry without rash.
[2020-05-05 04:00] VITALS: BP 110/59; PULSE 89; O2SAT 97
--- NOTE | 2020-05-05 04:15 | RT.EKG_ITS ---
APPROVED REPORT Exam: Resting ECG Patient Location: E HR:82 bpm ECG Measurements Heart Rate 82 AXIS VT 122 P 42 QRSd 102 QRS 91 QT 359 T 71 QTc 420 Conclusion Sinus rhythm...normal P axis, V-rate 60- 99 Anterior infarct, possibly acute...ST >0.15mV, upright T, V2-V5 No STEMI; Minimal elevation which is concave and no reciprocal changes anywhere.
[2020-05-05 04:31] VITALS: BP 146/70; PULSE 77; PULSE 79; RESP 16; O2SAT 96
[2020-05-05 04:32] LABS: Abs Immature Grans 0.01 10^3/uL (0.0-0.06); Absolute Basophil Count 0.02 10^3/uL (0.0-0.2); Absolute Eosinophil Count 0.06 10^3/uL (0.0-0.7); Absolute Lymphocyte Count 1.23 10^3/uL (1.2-3.4); Absolute Monocyte Count 0.44 10^3/uL (0.1-0.8); Absolute Neutrophil Count 3.27 10^3/uL (1.2-6.7); Basophils % 0.4; Eosinophils % 1.2; HCT 38.5 % (36.0-46.0); HGB 12.5 g/dL (11.2-15.7); Immature Grans % 0.2; Lymphocytes % 24.5; MCH 30.3 pg (27.0-33.0); MCHC 32.5 % (32.0-36.0); MCV 93.2 fL (80-95); MPV 10.9 fL (8.0-11.0); Monocytes % 8.7; Nucleated RBC 0 %; Platelet Count 182 10^3/uL (130-400); RBC 4.13 10^6/uL (3.93-5.22); RDW 12.3 % (11.7-14.6); RDW-SD 42.3 fL; WBC 5.03 10^3/uL (4.4-10.8)
[2020-05-05 04:56] LABS: ALT 16 U/L (14-59); AST 17 U/L (15-37); Albumin 3.7 g/dL (3.4-5.0); Alkaline Phosphatase 78 U/L (46-116); BUN 21 mg/dL (7-18); Bilirubin, Total 0.4 mg/dL (0.2-1.0); Calcium 9.1 mg/dL (8.5-10.1); Chloride 104 mmol/L (98-107); Estimated GFR 44.54 (mL/min/1.73m2); Glucose 95 mg/dL (74-106); Magnesium 2.3 mg/dL (1.8-2.4); Sodium 139 mmol/L (136-145); TSH 1.84 uIU/mL (0.36-3.74); Total Protein 6.9 g/dL (6.4-8.2)
[2020-05-05 04:58] LABS: Troponin I < 0.05 ng/mL (<0.06)
[2020-05-05 05:07] VITALS: BP 140/75; PULSE 80; PULSE 83; RESP 18; O2SAT 97
--- NOTE | 2020-05-05 05:08 | DI.CT_ITS ---
EXAM: CT HEAD WO CLINICAL HISTORY: confusion. TECHNIQUE: Imaging Protocol: Axial computed tomography images with coronal and sagittal reformatted images were created and reviewed COMPARISON: No exams were available for comparison FINDINGS: The ventricular system is normal in appearance. No evidence of acute intracranial hemorrhage, mass effect, or midline shift. The orbital structures are unremarkable. The temporal bone structures appear intact. Calvarium: Normal. Visualized Paranasal sinuses/Mastoids: Clear. IMPRESSION: Normal cranial CT. RADIATION DOSE DELIVERED: Total DLP Total DLP DATA REPOSITORY: All CT scans at this facility are submitted to the National Radiology Data Registry (NRDR) Dose Index Registry (DIR) with the [employer] (ACR). RADIATION OPTIMIZATION: All CT scans at this facility use at least one of these dose optimization te chniques: automated exposure control; mA and/or kV adjustment per patient size (includes targeted exa ms where dose is matched to clinical indication); or iterative reconstruction.
--- NOTE | 2020-05-05 05:08 | DI.RAD_ITS ---
EXAM: XR CHEST 2V PA LATERAL CLINICAL HISTORY: confusion TECHNIQUE: COMPARISON: CR XR CHEST 2V PA LATERAL from 03/14/2019 FINDINGS: The heart is at the upper limits of normal in size. Lungs are hyperinflated consistent with COPD. N o focal consolidation. No pleural effusion. IMPRESSION: No evidence of acute process. Presumed COPD. RADIATION DOSE DELIVERED: Total DLP
--- NOTE | 2020-05-05 05:23 | DI.VRAD_ITS ---
PROCEDURE INFORMATION: Exam: XR Chest, 2 Views Exam date and time: 05/05/2020 4:45 AM Age: 69 years old Clinical indication: Other: Confusion TECHNIQUE: Imaging protocol: XR of the chest Views: 2 views. COMPARISON: CR XR CHEST 2V PA LATERAL 03/14/2019 7:55 AM FINDINGS: Lungs: Large lung volumes and flattened diaphragms consistent with emphysema. Lungs clear otherwise. Pleural space: Unremarkable. No pleural effusion. No pneumothorax. Heart/Mediastinum: Cardiac silhouette stable. Overlying cardiac monitoring leads. Bones/joints: Low thoracic dextroconvex scoliosis. Soft tissues: Right axillary surgical clips. Gastrointestinal tract: Unremarkable bowel gas pattern. IMPRESSION: Nonacute appearance. Dictated and Authenticated by: Robson Scott MD. Ordering:CHRISTINE Dickinson MD
[2020-05-05 05:26] LABS: Bilirubin Negative (Negative); Blood Negative (Negative); Clarity Clear (Clear); Glucose Negative (Negative); Ketones Negative (Negative); Leukocyte Esterase Trace (Negative); Nitrite Negative (Negative); Specific Gravity 1.015 (1.005-1.025); Urobilinogen 0.2 EU/dL (Up TO 0.2)
--- NOTE | 2020-05-05 05:26 | DI.VRAD_ITS ---
PROCEDURE INFORMATION: Exam: CT Head Without Contrast Exam date and time: 05/05/2020 4:57 AM Age: 69 years old Clinical indication: Altered mental status/memory loss; Confusion or disorientation TECHNIQUE: Imaging protocol: Computed tomography of the head without contrast. Radiation optimization: All CT scans at this facility use at least one of these dose optimization techniques: automated exposure control; mA and/or kV adjustment per patient size (includes targeted exams where dose is matched to clinical indication); or iterative reconstruction. COMPARISON: MR HEAD^ROUTINE W WO 03/14/2019 9:37 AM FINDINGS: Brain: Normal. No evidence of acute intracranial hemorrhage or acute ischemia demonstrated on the examination. Normal vieira white matter differentiation. No mass effect or midline shift. Cortical sulci and subarachnoid cisterns are unremarkable. Ventricles: Normal. No ventriculomegaly. Bones/joints: Unremarkable. No acute calvarial fracture. Sinuses: Visualized sinuses are unremarkable. No fluid levels. Mastoid air cells: Visualized mastoid air cells are well aerated. Soft tissues: Unremarkable. IMPRESSION: No acute intracranial abnormality. Dictated and Authenticated by: Robson Scott MD. Ordering:CHRISTINE Dickinson MD
[2020-05-05 05:29] LABS: Bacteria Rare HPF (Negative); C & S Indicated? Yes; Casts Negative LPF (Negative); Crystals Negative HPF (Negative); Epithelial Cells Few HPF (Negative); Mucus Negative (Negative); RBC Negative HPF (0-2)
[2020-05-05 05:31] VITALS: BP 123/80; PULSE 78; PULSE 82; RESP 16; O2SAT 96
[2020-05-05 05:46] VITALS: BP 126/55; PULSE 79; PULSE 82; RESP 14; O2SAT 96
--- NOTE | 2020-05-05 06:16 | NUR.NOTE ---
Care Management referral for follow up. Needs f/u appointments scheduled. f/u for cognitive decline. [facility] ED Nursing Note:
--- NOTE | 2020-05-08 16:00 | PDOC.ERCMPRO ---
- If Service Date Differs Date of service: 05/08/20 Time of Service: 16:00 Care Management Progress Note Leslie is seen in the ED on 05/05/2020 for cognitive decline. ED provider requests that CM ensure follow up appointments are scheduled for patient. A review of the chart reveals that Leslie was seen by Elsie Haines of neurology on 05/07/2020 and had a follow up visit with Vy Dorado MD, of [facility] on 05/08/2020.
== END 2020-05-05 07:41 | disposition home or self-care (01) ==
LOC: ER 05:50
PROVIDERS: Emergency Provider Emergency Medicine; PCP Internal Medicine
DX: R41.0 Disorientation, unspecified (principal); R42 Dizziness and giddiness; G20 Parkinson's disease
CPT/HCPCS: 36415; 80053; 93005; 99285; 70450; 71046; 81003; 81015; 83735; 84443; 84484; 85025; 87086; 93010

== ENCOUNTER → 2020-05-07 08:31 | Outpatient (BNVA) | payer MEDICARE, OTHER, SELFPAY | PROVIDERS: PCP Internal Medicine; Referring Provider Internal Medicine; Visit Provider Psychiatry & Neurology Neurology | DX: G20 Parkinson's disease (principal); K59.00 Constipation, unspecified; N32.81 Overactive bladder; R11.0 Nausea | CPT/HCPCS: 99215 ==

== ENCOUNTER 2020-05-21 02:51 | Emergency (ER) | payer MEDICARE, OTHER, SELFPAY ==
[2020-05-21] VITALS (9 sets, daily range): BP systolic 153–168; BP diastolic 69–79; PULSE 74–84; RESP 14–20; TEMP 37.1; O2SAT 97–100
--- NOTE | 2020-05-21 03:00 | RT.EKG_ITS ---
APPROVED REPORT Exam: Resting ECG Patient Location: E HR:78 bpm ECG Measurements Heart Rate 78 AXIS SC 157 P 81 QRSd 95 QRS 88 QT 352 T 65 QTc 402 Conclusion EKG 3: 11 Rate 78, intervals normal, sinus rhythm, minimal less than a millimeter of elevation in V2, non-tombs tone, no evidence of STEMI or reciprocal changes. Review of prior EKG from 05/05 demonstrates marla moreno findings. Findings inconsistent with STEMI.
--- NOTE | 2020-05-21 03:00 | DI.CT_ITS ---
EXAM: CT HEAD WO CLINICAL HISTORY: transient confusion. TECHNIQUE: Imaging Protocol: Axial computed tomography images with coronal and sagittal reformatted images were created and reviewed COMPARISON: CT CT HEAD WO from 05/05/2020 FINDINGS: Ventricles and Extra axial spaces: Normal in size and morphology for the patient's age. Hemorrhage: None. Cerebral parenchyma: Normal. Midline shift: None. Brainstem/Cerebellum: Normal. Calvarium: Normal. Visualized Paranasal sinuses/Mastoids: Clear. Soft Tissues: Unremarkable. IMPRESSION: No acute intracranial process. RADIATION DOSE DELIVERED: 668.91mGy.cm Total DLP DATA REPOSITORY: All CT scans at this facility are submitted to the National Radiology Data Registry (NRDR) Dose Index Registry (DIR) with the [employer] (ACR). RADIATION OPTIMIZATION: All CT scans at this facility use at least one of these dose optimization te chniques: automated exposure control; mA and/or kV adjustment per patient size (includes targeted exa ms where dose is matched to clinical indication); or iterative reconstruction.
--- NOTE | 2020-05-21 03:21 | ED.GENADUL_ITS ---
Discharge Plan Disposition Patient Disposition: HOME Condition: Good Discharge Details Clinical Impression: Transient confusion Primary Care Provider: Vy Dorado ED Provider: Devon Bush Home Meds and New Rx's Prescriptions: Continued polyethylene glycol 3350 [Miralax] 17 gram/dose powder 17 gm PO BID PRN (Reason: constipation) Qty: 850 RF: 11 bupropion HCl [Wellbutrin XL] 300 mg tablet extended release 24 hr 300 mg PO QAM Qty: 90 RF: 3 carbidopa-levodopa 25-100 mg tablet 2 tab PO TID Qty: 540 RF: 3 Myrbetriq 25 mg tablet extended release 24 hr 25 mg PO DAILY Qty: 90 RF: 3 vitamin E 400 unit Capsule 400 unit PO DAILY RF: 0 cholecalciferol (vitamin D3) [Vitamin D3] 1,000 unit Capsule 1,000 unit PO DAILY RF: 0 Discharge Instructions Instructions: Altered Mental Status (ED) Additional Instructions: At this time your symptoms have resolved, your work-up shows no signs of infection, stroke or other abnormality. I suspect that your symptoms are likely related to the natural progression of age with your mind, however this will likely continue or worsen with time. We will have our case briefer follow-up with you tomorrow, we will also copy this note to your primary care provider. This may be a good time to start the discussion of having assistance or help at home, or finding a place of living with additional support. If you notice any worsening of your symptoms, or any new symptoms such as vomiting, diarrhea, fever, chills, shortness of breath, chest pain, numbness, weakness, or fainting , please return immediately to the emergency department for reevaluation. Please follow up with your primary care provider as soon as possible for reassessment and reevaluation. As always, it was a pleasure participating in your medical care today. Referrals: Vy Dorado MD [Primary Care Provider] - Medical Decision Making 69-year-old female with a past medical history of Parkinson's disease, presents today for evaluation of transient confusion. She is brought in by her friend Dayanara Rodriguez. Per her friend and the patient there seem to be an episode that lasted about 30 minutes where the patient was confused, she did not know where she was, while she was at her own normal living situation at the [place] house. She was brought to the ER for further assessment by her friend, however upon their arrival she returned back to her normal baseline with no evidence of confusion or altered mental status. Similar symptoms did happen like this on 05/05 where she was evaluated and had negative work-up at that time. Patient's denies any fever chills headache chest pain or shortness of breath. No other complaints at this time. She feels well and feels like she is at her baseline. She denies any urinary complaints or other modifying factors at this time. Also of note review of outside documents demonstrate that she did follow- up with her primary care provider shortly after initial event where Dr. Dorado noted that there was a notable decline in her cognitive status compared to normal. Concern was for potential for Alzheimer's dementia. Appears that Seroquel was started, but no other changes since then. Exam is otherwise benign, no neurologic deficits, or significant cognitive delay that I can appreciate now. I suspect she is demonstrating episodes of transient confusion secondary to perhaps early onset Alzheimer's dementia. It does appear that she came to the ER at the same time as jessica at 3 AM on her last visit. I do wonder if there is a sleep component perhaps involved. We will get a CT scan to evaluate for acute stroke which I feel unlikely. We will evaluate for signs of infectious etiology, monitor closely and reassess. 4:21 AM Laboratory work-up is returned notably unremarkable, patient's mental status still remains at her normal baseline with full functionality currently. Ammonia VBG urinalysis all benign. CT scan of the head is negative per virtual radiology. Signs and symptoms at this time are consistent with transient confusion, I suspect this is likely a combination of waking up in the wee hours of the morning, compounded by her Parkinson's and likely early onset Alzheimer's. I discussed with her and her friend who brought her, Dayanara Herbertelman these things, as well as the need to consider potential change in living status to a place that might be more conducive to support during episodes like this. 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 I also did try to contact the patient's medical physics teacher Diamond Gerardo, unfortunately there was no answering message or someone to cook pickled meat. I would recommend follow-up by case management with these people other names and numbers are provided: Dayanara Rodriguez: [phone] Diamond Gerardo: [phone] I have extensively reviewed the treatment plan and discharge instructions with the patient and their family. I have addressed all patient concerns at this time. The patient and family was made aware of what symptoms to monitor for that would warrant a return to the emergency department. Discussed the plan with the patient and family, they demonstrate verbal understanding and agreement with our assessment and plan at this time. EKG 3: 11 Rate 78, intervals normal, sinus rhythm, minimal less than a millimeter of elevation in V2, non-tombstone, no evidence of STEMI or reciprocal changes. Review of prior EKG from 05/05 demonstrates identical findings. Findings inconsistent with STEMI. HPI General Date/Time Provider Initiated Documentation: 05/21/20 02:53 . HPI Narrative: 69-year-old female with a past medical history of Parkinson's disease, presents today for evaluation of transient confusion. She is brought in by her friend Dayanara Rodriguez. Per her friend and the patient there seem to be an episode that lasted about 30 minutes where the patient was confused, she did not know where she was, while she was at her own normal living situation at the [facility]. She was brought to the ER for further assessment by her friend, however upon their arrival she returned back to her normal baseline with no evidence of confusion or altered mental status. Similar symptoms did happen like this on 05/05 where she was evaluated and had negative work-up at that time. Patient's denies any fever chills headache chest pain or shortness of breath. No other complaints at this time. She feels well and feels like she is at her baseline. She denies any urinary complaints or other modifying factors at this time. Related Data Home Medications Medication Instructions Recorded Confirmed cholecalciferol (vitamin D3) 1,000 unit PO DAILY 03/12/19 05/21/20 [Vitamin D3] vitamin E 400 unit PO DAILY 03/12/19 05/21/20 bupropion HCl 300 mg 24 hr tablet, 300 mg PO QAM #90 tab 09/20/19 05/21/20 extended release mirabegron 25 mg tablet,extended 25 mg PO DAILY #90 tab 11/24/19 05/21/20 release 24 hr carbidopa 25 mg-levodopa 100 mg 2 tab PO TID #540 tab 12/28/19 05/21/20 tablet polyethylene glycol 3350 17 17 gm PO BID PRN #850 gm 01/18/20 05/21/20 gram/dose oral powder Previous Rx's Medication Instructions Recorded bupropion HCl 300 mg 24 hr tablet, 300 mg PO QAM #90 tab 09/20/19 extended release mirabegron 25 mg tablet,extended 25 mg PO DAILY #90 tab 11/24/19 release 24 hr carbidopa 25 mg-levodopa 100 mg 2 tab PO TID #540 tab 12/28/19 tablet polyethylene glycol 3350 17 17 gm PO BID PRN #850 gm 01/18/20 gram/dose oral powder Allergies Allergy/AdvReac Type Severity Reaction Status Date / Time Penicillins Allergy Unknown Verified 05/21/20 03:59 General Stated Complaint: AMS/LOC LUIS: 2 Review of Systems All systems reviewed & are unremarkable except as noted in HPI and below PFSH Medical History Depression Idiopathic Parkinson's disease Lyme disease negative tests but tests aren't always positive per Dr. Lex Banda Osteopenia Pre-syncope Surgical History Cervical Conization/LEEP Colonoscopy - IV Sedation 2014- EGD - [facility] (12/31/16) 12/31/2016 Pathology: neg H.Pylori, fundic gland polyp, reactive (chemical) gastropathy L wrist tendon repair S/P laparoscopic cholecystectomy 04/05/19, Dr Maile Ibarra, [facility] Tonsillectomy and adenoidectomy wrist ORIF left Family History Mother Dementia Father Heart disease Sister Crohns disease Social History Smoking/Tobacco Use Status: Former Tobacco Use Quit Date: 02/22/80 Pack-years: 5 Alcohol Intake: current Alcohol Intake frequency: holidays/special occasions only Drug use: Never Substance use type: does not use Household members: none Housing: apartment Communication Needs: Corrective Lenses 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; 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 How often do you talk on the phone with friends or family?: three or more times per week How often do you get together with friends or relatives?: three or more times per week Panel score (0-1 are the most socially isolated patients): 1 What type of physical activity do you participate in: none and other Details: Has had PT and OT eval Seatbelt use: always Drive intox or ride w/intox 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 3.ENT: Atraumatic external nose and ears. Moist MM. Neck: Symmetric, trachea midline, No thyromegaly. Patient demonstrates good movement of cervical neck. There is no nuchal rigidity, no nuchal tenderness. Patient is able to flex the neck without any difficulty or significant pain. Negative Kernig's and Brudzinski sign. 4.CVS: +S1/S2, No murmurs or gallops. Peripheral pulses 2+ and equal in all extremities. Brisk capillary refill in all extremities. 5.RESP: Unlabored respiratory effort. Clear to auscultation bilaterally. No wheezes rales or rhonchi 6.GI: Soft, Nontender/Nondistended, No hepatosplenomegaly. No guarding or rebound. 7.MSK: Normocephalic/Atraumatic, Extremities w/o deformity or ttp No cyanosis or clubbing, Normal movement of all extremities 8.Skin: Warm, Dry. No rashes or lesions. 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 Sensation grossly intact, no focal neurologic deficits. All 6 cardinal planes of vision are fully intact. No evidence of rotatory or vertical nystagmus. The patient demonstrated a normal bmtdht-sgfl-upjdmy, good dexterity. There was no evidence of dysdiadochokinesia. Patient was able to ambulate without difficulty. There was no wide-based gait. Romberg testing was normal. Yyxn-ld-fltq testing was normal. Sensation was int act bilaterally as well as muscle strength bilaterally for all extremities. Patient was able to verbalize butter cup with no slurring, or miss pronunciation. 10.Psych: (AAO) x3. Appropriate mood and affect, recalls her initial confusion, is able to recall 3 words that I asked her earlier. Does not seem to show signs of significant abnormality currently. Course Vital Signs Vital signs: Vital Signs Temperature 37.1 C 05/21/20 03:03 Pulse 84 05/21/20 03:03 Respiratory Rate 14 05/21/20 03:03 Blood Pressure 168/79 H 05/21/20 03:03 Pulse Oximetry 100 05/21/20 03:03 Temperature 37.1 C 05/21/20 03:03 Temperature Source Temporal Artery Scan 05/21/20 03:03 Pulse 84 05/21/20 03:03 Respiratory Rate 14 05/21/20 03:03 Respiratory Effort Non-Labored 05/21/20 03:10 Blood Pressure 168/79 H 05/21/20 03:03 Blood Pressure Position Supine 05/21/20 03:03 Pulse Oximetry 100 05/21/20 03:03 Oxygen Delivery Method Room Air 05/21/20 03:03 Oxygen Flow Rate 0 05/21/20 03:03
[2020-05-21 03:36] LABS: Abs Immature Grans 0.02 10^3/uL (0.0-0.06); Absolute Basophil Count 0.03 10^3/uL (0.0-0.2); Absolute Eosinophil Count 0.05 10^3/uL (0.0-0.7); Absolute Lymphocyte Count 1.29 10^3/uL (1.2-3.4); Absolute Monocyte Count 0.43 10^3/uL (0.1-0.8); Absolute Neutrophil Count 2.69 10^3/uL (1.2-6.7); Basophils % 0.7; Eosinophils % 1.1; HCT 37.1 % (36.0-46.0); HGB 12.3 g/dL (11.2-15.7); Immature Grans % 0.4; Lymphocytes % 28.6; MCH 30.8 pg (27.0-33.0); MCHC 33.2 % (32.0-36.0); MCV 92.8 fL (80-95); MPV 10.7 fL (8.0-11.0); Monocytes % 9.5; Neutrophils % 59.7; Nucleated RBC 0 %; Platelet Count 199 10^3/uL (130-400); RDW 12.4 % (11.7-14.6); RDW-SD 42.7 fL; WBC 4.51 10^3/uL (4.4-10.8)
[2020-05-21 03:47] LABS: Ammonia < 10 umol/L (11-32)
--- NOTE | 2020-05-21 03:56 | DI.VRAD_ITS ---
PROCEDURE INFORMATION: Exam: CT Head Without Contrast Exam date and time: 05/21/2020 3:39 AM Age: 69 years old Clinical indication: Alteration of consciousness; Transient alteration of awareness; Patient HX: Transient confusion TECHNIQUE: Imaging protocol: Computed tomography of the head without contrast. Radiation optimization: All CT scans at this facility use at least one of these dose optimization techniques: automated exposure control; mA and/or kV adjustment per patient size (includes targeted exams where dose is matched to clinical indication); or iterative reconstruction. COMPARISON: CT HEAD WO 05/05/2020 4:57 AM FINDINGS: Brain: Normal. No hemorrhage. Unremarkable white matter. No mass effect. Cerebral ventricles: No ventriculomegaly. Bones/joints: Unremarkable. No acute fracture. Paranasal sinuses: Visualized sinuses are unremarkable. No fluid levels. Mastoid air cells: Visualized mastoid air cells are well aerated. Soft tissues: Unremarkable. IMPRESSION: No acute intracranial abnormality. Dictated and Authenticated by: Alirio Greer MD. Ordering:TOBI Osorio MD
[2020-05-21 03:57] LABS: PTT Activated 22.7 sec (21.0-31.4); Prothrombin Time 10.5 sec (9.3-11.0)
[2020-05-21 04:03] LABS: Bilirubin Negative (Negative); Blood Negative (Negative); Clarity Clear (Clear); Glucose Negative (Negative); Ketones Negative (Negative); Leukocyte Esterase Trace (Negative); Nitrite Negative (Negative); Specific Gravity 1.025 (1.005-1.025); Urobilinogen 0.2 EU/dL (Up TO 0.2)
[2020-05-21 04:03] LABS: ALT 19 U/L (14-59); AST 19 U/L (15-37); Albumin 3.6 g/dL (3.4-5.0); Alkaline Phosphatase 72 U/L (46-116); Anion Gap 5.9 mmol/L (3-11); BUN 23 mg/dL (7-18); Bilirubin, Total 0.5 mg/dL (0.2-1.0); CO2 29.1 mmol/L (21.0-32.0); CREATININE 0.94 mg/dL (0.55-1.02); Calcium 8.9 mg/dL (8.5-10.1); Chloride 105 mmol/L (98-107); Estimated GFR 59.04 (mL/min/1.73m2); Glucose 99 mg/dL (74-106); Potassium 3.6 mmol/L (3.5-5.1); Sodium 140 mmol/L (136-145); TSH (W/Ref FT4) 1.93 uIU/mL (0.36-3.74); Total Protein 6.4 g/dL (6.4-8.2)
[2020-05-21 04:06] LABS: Bacteria Rare HPF (Negative); C & S Indicated? Yes; Casts Negative LPF (Negative); Crystals Negative HPF (Negative); Epithelial Cells Rare HPF (Negative); Mucus Trace (Negative); RBC 0-2 HPF (0-2); WBC 0-2 HPF (0-5)
--- NOTE | 2020-05-21 05:17 | NUR.NOTE ---
Nursing Note:Patient states she missed 2 doses of her Carba Dopa Leva Dopa and her Myrbetriq yesterday.
[2020-05-21 12:23] LABS: BE (Venous) 6 mmol/L (-2-3); HCO3 (Venous) 30 mmol/L (23-28); O2 Sat (Venous) 91 %; TCO2 (Venous) 32 mmol/l (24-29); pCO2 (Venous) 45 mmHg (41-51); pH (Venous) 7.43 (7.31-7.41); pO2 (Venous) 60 mmHg
== END 2020-05-21 04:25 | disposition home or self-care (01) ==
PROVIDERS: Emergency Provider Student in an Organized Health Care Education/Training Program; PCP Internal Medicine
DX: R41.0 Disorientation, unspecified (principal); G20 Parkinson's disease
CPT/HCPCS: 36415; 80053; 82805; 93005; 99285; 70450; 81003; 81015; 82140; 84443; 85025; 85610; 85730; 87086; 93010; 99284

== ENCOUNTER → 2020-06-05 14:31 | Outpatient (BNVA) | payer MEDICARE, OTHER, SELFPAY | PROVIDERS: PCP Internal Medicine; Referring Provider Internal Medicine; Visit Provider Psychiatry & Neurology Neurology | DX: G20 Parkinson's disease (principal); K59.00 Constipation, unspecified; N32.81 Overactive bladder; R11.0 Nausea | CPT/HCPCS: 99214 ==

== ENCOUNTER → 2020-07-31 12:40 | Outpatient (BNVA) | payer MEDICARE, OTHER, SELFPAY | PROVIDERS: PCP Internal Medicine; Referring Provider Internal Medicine; Visit Provider Psychiatry & Neurology Neurology | DX: G20 Parkinson's disease (principal); K59.00 Constipation, unspecified; N32.81 Overactive bladder; R11.0 Nausea | CPT/HCPCS: 99213 ==

== ENCOUNTER → 2020-10-01 12:33 | Outpatient (BNVA) | payer MEDICARE, OTHER, SELFPAY | PROVIDERS: PCP Internal Medicine; Referring Provider Internal Medicine; Visit Provider Psychiatry & Neurology Neurology | DX: G20 Parkinson's disease (principal); K59.00 Constipation, unspecified; N32.81 Overactive bladder; R11.0 Nausea; R13.10 Dysphagia, unspecified | CPT/HCPCS: 99215 ==

== ENCOUNTER → 2021-01-01 12:20 | Outpatient (BNVA) | payer MEDICARE, OTHER, SELFPAY | PROVIDERS: PCP Internal Medicine; Visit Provider Psychiatry & Neurology Neurology | DX: R13.10 Dysphagia, unspecified (principal); G20 Parkinson's disease; R11.0 Nausea; K59.00 Constipation, unspecified; N32.81 Overactive bladder | CPT/HCPCS: 99215 ==

== ENCOUNTER → 2021-02-06 07:14 | Outpatient (BNVA) | payer MEDICARE, OTHER, SELFPAY | PROVIDERS: PCP Internal Medicine; Referring Provider Internal Medicine; Visit Provider Psychiatry & Neurology Neurology | DX: R13.10 Dysphagia, unspecified (principal); G20 Parkinson's disease; K59.00 Constipation, unspecified; N32.81 Overactive bladder; I95.1 Orthostatic hypotension | CPT/HCPCS: 99214 ==

== ENCOUNTER → 2021-03-07 14:56 | Outpatient (BNVA) | payer MEDICARE, OTHER, SELFPAY | PROVIDERS: PCP Internal Medicine; Referring Provider Internal Medicine; Visit Provider Nurse Practitioner Gerontology | DX: N32.81 Overactive bladder (principal) | CPT/HCPCS: 99214 ==

== ENCOUNTER → 2021-04-24 10:52 | Outpatient (BNVA) | payer MEDICARE, OTHER, SELFPAY | PROVIDERS: PCP Internal Medicine; Referring Provider Internal Medicine; Visit Provider Psychiatry & Neurology Neurology | DX: G20 Parkinson's disease (principal); K59.00 Constipation, unspecified; N32.81 Overactive bladder; I95.1 Orthostatic hypotension | CPT/HCPCS: 99215 ==

== ENCOUNTER 2021-07-12 01:55 | Outpatient (CLI) | payer MEDICARE, OTHER, SELFPAY ==
--- NOTE | 2021-07-12 11:15 | DI.CT_ITS ---
Exam(s) CT HEAD WO EXAM: CT HEAD WO CLINICAL HISTORY: falling and now with somnolence and AMS, G47.10, R29.6, R41.82. TECHNIQUE: Imaging Protocol: Axial computed tomography images with coronal and sagittal reformatted images were created and reviewed COMPARISON: CT CT HEAD WO from 05/21/2020 FINDINGS: Ventricles and Extra axial spaces: Normal in size and morphology for the patient's age. Hemorrhage: None. Cerebral parenchyma: Normal. Midline shift: None. Brainstem/Cerebellum: Normal. Calvarium: Normal. Visualized Paranasal sinuses/Mastoids: Clear. Soft Tissues: Unremarkable. IMPRESSION: No acute intracranial process. RADIATION DOSE DELIVERED: 667.82mGy.cm Total DLP DATA REPOSITORY: All CT scans at this facility are submitted to the National Radiology Data Registry (NRDR) Dose Index Registry (DIR) with the [employer] (ACR). RADIATION OPTIMIZATION: All CT scans at this facility use at least one of these dose optimization te chniques: automated exposure control; mA and/or kV adjustment per patient size (includes targeted exa ms where dose is matched to clinical indication); or iterative reconstruction.
== END 2021-07-12 02:15 ==
PROVIDERS: PCP Internal Medicine; Visit Provider Psychiatry & Neurology Neurology
DX: G47.10 Hypersomnia, unspecified (principal); R29.6 Repeated falls; R41.82 Altered mental status, unspecified
CPT/HCPCS: 36415; 80053; 85027; 70450; 81003; 84443

== ENCOUNTER 2021-07-12 03:39 | Outpatient (CLI) | payer MEDICARE, OTHER, SELFPAY ==
[2021-07-12 11:47] LABS: HCT 36.4 % (36.0-46.0); HGB 11.7 g/dL (11.2-15.7); MCH 30.2 pg (27.0-33.0); MCHC 32.1 % (32.0-36.0); MCV 94.1 fL (80-95); MPV 10.6 fL (8.0-11.0); Platelet Count 207 10^3/uL (130-400); RBC 3.87 10^6/uL (3.93-5.22); RDW 12.9 % (11.7-14.6); RDW-SD 44.4 fL; WBC 7.25 10^3/uL (4.4-10.8)
[2021-07-12 11:56] LABS: Bilirubin Negative (Negative); Blood Negative (Negative); Clarity Clear (Clear); Glucose Negative (Negative); Ketones Trace mg/dL (Negative); Leukocyte Esterase Negative (Negative); Nitrite Negative (Negative); Specific Gravity 1.025 (1.005-1.025); Urobilinogen 0.2 EU/dL (Up TO 0.2); pH 6.5 (5-8)
[2021-07-12 13:09] LABS: ALT 12 U/L (14-59); AST 17 U/L (15-37); Albumin 4.1 g/dL (3.4-5.0); Alkaline Phosphatase 74 U/L (46-116); BUN 23 mg/dL (7-18); Bilirubin, Total 0.5 mg/dL (0.2-1.0); Calcium 9.1 mg/dL (8.5-10.1); Chloride 104 mmol/L (98-107); Estimated GFR 54.81 (mL/min/1.73m2); Glucose 93 mg/dL (74-106); Potassium 4.4 mmol/L (3.5-5.1); Sodium 142 mmol/L (136-145); TSH (W/Ref FT4) 1.32 uIU/mL (0.36-3.74)
== END 2021-07-12 03:40 | disposition home or self-care (01) ==
LOC: LBO 03:41
PROVIDERS: PCP Internal Medicine; Visit Provider Psychiatry & Neurology Neurology
DX: G47.10 Hypersomnia, unspecified; R29.6 Repeated falls; R41.82 Altered mental status, unspecified
CPT/HCPCS: 36415; 80053; 85027; 81003; 84443

== ENCOUNTER → 2021-07-24 10:46 | Outpatient (BNVA) | payer MEDICARE, OTHER, SELFPAY | PROVIDERS: PCP Internal Medicine; Visit Provider Psychiatry & Neurology Neurology | DX: G20 Parkinson's disease (principal); K59.00 Constipation, unspecified; N32.81 Overactive bladder; I95.1 Orthostatic hypotension; G93.40 Encephalopathy, unspecified; R29.6 Repeated falls | CPT/HCPCS: 99215 ==

== ENCOUNTER 2021-07-31 01:00 | Outpatient (CLI) | payer MEDICARE, OTHER, SELFPAY ==
--- NOTE | 2021-07-31 07:45 | DI.MRI_ITS ---
Exam(s) MR BRAIN WO EXAM: MR BRAIN WO CLINICAL HISTORY: acute on chronic memory loss,encephalopathy,g93.40 TECHNIQUE: Multiplanar multisequence MRI of the brain was performed. CT CT HEAD WO from 07/12/[address] HEAD WO from 07/12/2021 FINDINGS: VENTRICLES AND EXTRA AXIAL SPACES: Normal in size and morphology for the patient's age. MIDLINE SHIFT: None. CEREBRAL PARENCHYMA: No focus of restricted diffusion to suggest acute infarct. No space-occupying le chava identified. There are areas of hyperintense signal in the white matter on the FLAIR and T2 weigh manjinder images. These findings have progressed since the prior examination. HEMORRHAGE: None. BRAINSTEM/CEREBELLUM: Normal. CALVARIUM: Normal. VISUALIZED PARANASAL SINUSES/MASTOIDS:Clear. BEAVER OF ROSE: Normal flow void. PITUITARY GLAND: Unremarkable. OTHER FINDINGS: None. IMPRESSION: 1. Findings consistent with chronic white matter disease which has progressed since the prior examina tion.. 2. No evidence of an acute infarct. DATA REPOSITORY:
== END 2021-07-31 01:20 ==
PROVIDERS: PCP Internal Medicine; Visit Provider Psychiatry & Neurology Neurology
DX: G93.40 Encephalopathy, unspecified (principal); R41.3 Other amnesia; R90.82 White matter disease, unspecified
CPT/HCPCS: 70551